=== PATIENT | male | born 1945 | race Caucasian/White ===

== ENCOUNTER 2016-12-23 15:00 | Inpatient (IN) | payer OTHER, MEDICARE ==
[2016-12-23 15:06] VITALS: BMI 24.4
--- NOTE | 2016-12-23 15:55 | PDOC ---
History of Present Illness - History of Present Illness Initial Comments: 12/23/16 16:08 Patient is a 71 year old male with significant medical hx of recent diagnosis with pancreatic CA (on chemotherapy) complicated by GI bleed, 2 week ICU stay complicated by C. diff, HLD, HTN, DM, and hypothyroidism s/p thyroid resection, who is presenting to the ED with infection to the right lower extremity for three weeks. Three weeks ago the patient was sitting too close to a space heater and sustained foote to his right leg. The patient notes that he didnt notice that his leg was burning due to his diabetic neuropathy. He reports blistering to the area, redness, and swelling. The patient reports he has had no difficulty walking. The patient denies chest pain, shortness of breath, headache and dizziness. Denies fever, chills, nausea, vomiting, diarrhea and constipation. Denies dysuria, frequency, urgency and hematuria. Medications: As listed Allergies: None Social history: , social alcohol, no smoking <Maribel Regalado - Last Filed: 12/23/16 16:08> - General History Source: Patient Exam Limitations: No Limitations <Jazlyn Man - Last Filed: 12/24/16 12:42> - General Chief Complaint: Pain, Acute Stated Complaint: RIGHT LEG PAIN Time Seen by Provider: 12/23/16 15:15 Past History <Maribel Regalado - Last Filed: 12/23/16 16:08> - Past Medical History Cancer: Yes (thyroid cancer) Cardiac Disorders: No CVA: No CHF: No Dementia: No Diabetes: Yes HTN: Yes Hypercholesterolemia: Yes Seizures: No Thyroid Disease: Yes (throid ca) Other medical history: CHEMO FOR PANCREATIC CA - Surgical History Abdominal Surgery: No Appendectomy: No Cardiac Surgery: No Cholecystectomy: No Lung Surgery: No Neurologic Surgery: No Orthopedic Surgery: No - Psycho/Social/Smoking Cessation Hx Anxiety: No Suicidal Ideation: No Smoking Status: No Smoking History: Never smoked Have you smoked in the past 12 months: No Number of Cigarettes Smoked Daily: 0 Hx Alcohol Use: No Drug/Substance Use Hx: No Substance Use Type: None Hx Substance Use Treatment: No <Jazlyn Mna - Last Filed: 12/24/16 12:42> - Past Medical History Allergies/Adverse Reactions: Allergies Allergy/AdvReac Type Severity Reaction Status Date / Time lisinopril Allergy Verified 12/23/16 15:02 Opioids - Morphine Analogues Allergy Verified 12/23/16 15:02 Home Medications: Ambulatory Orders Buspirone HCl [Buspar -] 5 mg PO ONCE 12/23/16 Canagliflozin [Invokana] 300 mg PO DAILY 12/23/16 Levothyroxine [Synthroid -] 175 mcg PO DAILY 12/23/16 Lisdexamfetamine Dimesylate [Vyvanse] 30 mg PO DAILY 12/23/16 Omeprazole Magnesium [Prilosec] 40 mg PO DAILY 12/23/16 Pioglitazone HCl [Actos] 30 mg PO DAILY 12/23/16 Ranitidine HCl [Zantac] 150 mg PO DAILY 12/23/16 Saccharomyces Boulardii [Florastor] 0 mg PO BID 12/23/16 Sitagliptin Phos/Metformin HCl [Janumet 50-1,000 mg Tablet] 1 each PO BID Review of Systems - Review of Systems Comments:: 12/23/16 16:08 GENERAL/CONSTITUTIONAL: No: fever, chills, weakness, loss of appetite. HEAD, EYES, EARS, NOSE AND THROAT: No: change in vision, ear pain, discharge, sore throat, throat swelling. CARDIOVASCULAR: No: chest pain, lightheadedness, palpitations, syncope RESPIRATORY: No: cough, shortness of breath, wheezing, hemoptysis, stridor. GASTROINTESTINAL: No: nausea, vomiting, abdominal cramping, diarrhea, rectal bleeding, constipation. GENITOURINARY: No: dysuria, hematuria, frequency, urgency, flank pain. MUSCULOSKELETAL: Yes: right lower extremity redness, swelling, pain, blistering. No: back pain, neck pain, joint pain SKIN AND BREASTS: No: lesions, pallor, rash or easy bruising. NEUROLOGIC: No: headache, vertigo, paresthesias, weakness ENDOCRINE: No: unexplained weight gain or loss HEMATOLOGIC/LYMPHATIC: No: anemia, easy bleeding, swelling nodes <FabricioMaribel - Last Filed: 12/23/16 16:08> *Physical Exam - Vital Signs Last Vital Signs Temp Pulse Resp BP Pulse Ox 97.6 F 93 H 18 121/74 100 12/23/16 15:01 12/23/16 15:01 12/23/16 15:01 12/23/16 15:01 12/23/16 15:01 - Physical Exam Comments: 12/23/16 16:09 GENERAL: The patient is in no acute distress. HEAD: Normal with no signs of trauma. EYES: PERRLA, EOMI, sclera anicteric, conjunctiva clear. ENT: Ears normal, nares patent, oropharynx clear without exudates. Moist mucous membranes. NECK: Normal range of motion, supple without lymphadenopathy, JVD, or masses. LUNGS: Breath sounds equal, clear to auscultation bilaterally. No wheezes, and no crackles. HEART:Regular rate and rhythm, normal S1 and S2 without murmur, rub or gallop. ABDOMEN: Soft, nontender, normoactive bowel sounds. No guarding, no rebound. EXTREMITIES: Right lower extremity swelling and erythema, no tenderness. Normal range of motion. No clubbing or cyanosis. NEUROLOGICAL: Cranial nerves II through XII grossly intact. Normal speech. No focal neurological deficits. MUSCULOSKELETAL: Back non-tender to palpation, no CVA tenderness SKIN: Warm, Dry, normal turgor, no rashes or lesions noted. <Maribel Regalado - Last Filed: 12/23/16 16:08> - Vital Signs Last Vital Signs Temp Pulse Resp BP Pulse Ox 97.6 F 93 H 18 121/74 100 12/23/16 15:01 12/23/16 15:01 12/23/16 15:01 12/23/16 15:01 12/23/16 15:01 <Jazlyn Man - Last Filed: 12/24/16 12:42> ED Treatment Course - LABORATORY CBC & Chemistry Diagram: 12/24/16 05:00 12/24/16 05:00 <Jazlyn Man - Last Filed: 12/24/16 12:42> Medical Decision Making - Medical Decision Making 12/23/16 15:55 A portion of this note was documented by scribe services under my direction. I have reviewed the details of the note, within reason, and agree with the documentation with the following case summary and management plan written by me. Nursing documentation reviewed and incorporated into medical decision making 12/23/16 18:19 This is a 71 yo M with a h/o DM Recent diagnosis of pancreatic cancer s/p post op complicated course Pt had an extensive GI bleed due to "vessel being cut" on Oct 02, ultimately requiring intubation and ICU stay, s/p endoscopy x 4?, s/p successful stapling S/p embolization as well Hospital course complicated by C diff Pt ultimately discharged to a long-term Pt finally returned home just before the beginning of the year While at home, he sustained a superficial burn to the right ankle/foot He and his have been applying local wound care Yesterday, he noted lower extremity swelling Today he noted lower extremity erythema No fevers or chills Erythema extends up the lower leg There are 2 lesions of the dorsum of the right foot Of note, pt is currently on chemotherapy, protocol 3 weeks on 1 week off. This is his week off. DD: Cellulitis, abscess, osteomyelitis DD: DVT, dependent edema 12/23/16 18:19 Laboratory Tests 12/23/16 12/23/16 16:19 16:19 WBC 1.2 L* D Hgb 11.1 L D Hct 34.5 L D Plt Count 266 D Neutrophils % 50.0 Lymphocytes % 35.0 D Sodium 133 L Potassium 4.9 Chloride 103 Carbon Dioxide 22 D BUN 24 H D Creatinine 1.2 D Random Glucose 234 H D Patient given vancomycin to treat cellulitis. Given patient's history of C. difficile will avoid Clindamycin Pt US (+) for DVT call placed to Dr. Swift Will admit to hospitalist service Will keep pt at [facility] as there are no rooms at [facility] Pt can be transported to [facility] for filter if appropriate Call placed to pt Oncologist Spoke with verification specialist physician, kelly endoscopy demonstrated dark blood, no active bleeding Call placed to Dr Mojica Would hold on anti coagulation for now 12/23/16 18:29 Called by Imaging fashion illustrator re: findings of extensive RLE DVT (common femoral through popliteal) Pt seen by ERIKA Ruvalcaba Pt will need to be placed on isolation given neutropenia Clinical Impression: extensive DVT, Cellulitis, neutropenia 12/23/16 18:45 <Jazlyn Man - Last Filed: 12/24/16 12:42> *DC/Admit/Observation/Transfer - Attestations Scribe Attestion: 12/23/16 16:10 Documentation prepared by Maribel Regalado, acting as certified court/medical interpreter for Jazlyn Man MD. <Maribel Regalado - Last Filed: 12/23/16 16:08> - Discharge Dispostion Admit: Yes <Jazlyn Man - Last Filed: 12/24/16 12:42> Diagnosis at time of Disposition: Cellulitis of leg, right DVT (deep venous thrombosis) Qualifiers: DVT location: lower extremity Affected thrombotic vein of extremity: unspecified lower extremity proximal vein Laterality: right Chronicity: acute Qualified Code(s): I82.4Y1 - Acute embolism and thrombosis of unspecified deep veins of right proximal lower extremity Neutropenia Qualifiers: Neutropenia type: secondary to cancer chemotherapy Qualified Code(s): D70.1 - Agranulocytosis secondary to cancer chemotherapy - Discharge Dispostion Condition at time of disposition: Guarded - Referrals
[2016-12-23 16:34] LABS: MCH 29.7 pg (25.7-33.7); MCHC 32.2 g/dl (32.0-35.9); MEAN CELL VOLUME 92.4 fl (80-96); MEAN PLT VOLUME 7.2 fl (7.5-11.1); PLATELET COUNT 266 K/MM3 (134-434); RDW 14.7 % (11.9-15.9)
[2016-12-23 16:40] LABS: WHITE BLOOD COUNT 1.2 K/mm3 (4.0-10.0)
[2016-12-23 16:41] LABS: ALBUMIN 3.1 g/dl (3.5-5.0); BILIRUBIN,TOTAL 0.8 mg/dl (0.2-1.0); CALCIUM 8.6 mg/dl (8.4-10.2); CREATININE 1.2 mg/dl (0.6-1.3)
[2016-12-23 17:11] LABS: ANISOCYTOSIS RARE; HYPOCHROMIA 1+; MICROCYTOSIS FEW
[2016-12-23] MEDS ORDERED: VANCOMYCIN 1,000 MG in DEXTROSE 5%-WATER - 250 ML IVPB ONE (17:21)
[2016-12-23] MEDS ORDERED: VANCOMYCIN 1,000 MG VIAL (RESTRICTED TO ID ONLY) ONE (17:30)
[2016-12-23 18:40] LABS: PH,URINE 5.5 (4.5-8); URINE APPEARANCE Clear; URINE BILIRUBIN Negative (NEGATIVE); URINE BLOOD Negative (NEGATIVE); URINE GLUCOSE (UA) 3+ (NEGATIVE); URINE KETONE 1+ (NEGATIVE); URINE LEUK ESTERASE Negative (NEGATIVE); URINE NITRITE Negative (NEGATIVE); URINE UROBILINOGEN 0.2 E.U/dl (0.2-1.0)
[2016-12-23 18:42] LABS: URINE COLOR YELLOW; URINE PROTEIN 1+ (NEGATIVE)
[2016-12-23 18:53] LABS: URINE BACTERIA NEGATIVE /hpf (NEGATIVE); URINE WBC 0-2 (3-5)
--- NOTE | 2016-12-23 18:58 | HP ---
CHIEF COMPLAINT: RLE swollen and red PCP: Dr. Luque [phone] (cell) Oncologist Vito HISTORY OF PRESENT ILLNESS: 71 year-old man with a PMH of HTN, HLD, NIDDM, hypothyroidism s/p thyroid resection, and pancreatic cancer which was diagnosed in September 2016. Underwent Whipple procedure (Vito Petersen) complicated by a GI bleed secondary to a severed vessel. Remained in ICU x 2 weeks. Last EGD was in early October 2016 which showed no active bleeding and Hgb has been stable since that time. Patient was discharged in late October with a diagnosis of c.diff. Went to [facility] in [facility] where he was treated for 6 weeks for c.diff, 4 weeks on metronidazole, 2 weeks on PO vanc. Returned home day before . Shortly after returning home, the patient suffered three small blistering- foote on the RLE from a space heater. Patient and VNS treated foote with topical antibiotic. In early December 2016 patient started chemotherapy and he has completed three rounds. On Saturday and of this past week he did not feel well and stayed in bed. On Saturday he noticed swelling in his RLE. The swelling gradually worsened, and today RLE became inflamed, very swollen, and painful and so he came to the ED. Social history: , social alcohol, no smoking ER course was notable for: (1) Afebrile, WBC 1.2, ANC 600 (2) US RLE: extensive DVT throughout RLE extending common femoral to posterior tibial vein, predominantly occlusive, some areas of minimal flow Recent Travel: no PAST MEDICAL HISTORY Hypertension Hyperlipidemia NIDDM Hypothyroidism Prostate cancer PAST SURGICAL HISTORY: Whipple procedure Thyroid resection Social History: Smoking: no Alcohol: social Drugs: no Family History: Allergies lisinopril Allergy (Verified 12/23/16 15:02) Opioids - Morphine Analogues Allergy (Verified 12/23/16 15:02) HOME MEDICATIONS: Medication Instructions Recorded Buspirone HCl [Buspar -] 5 mg PO ONCE 12/23/16 Canagliflozin [Invokana] 300 mg PO DAILY 12/23/16 Levothyroxine [Synthroid -] 175 mcg PO DAILY 12/23/16 Lisdexamfetamine Dimesylate 30 mg PO DAILY 12/23/16 [Vyvanse] Omeprazole Magnesium [Prilosec] 40 mg PO DAILY 12/23/16 Pioglitazone HCl [Actos] 30 mg PO DAILY 12/23/16 Ranitidine HCl [Zantac] 150 mg PO DAILY 12/23/16 Saccharomyces Boulardii [Florastor] 0 mg PO BID 12/23/16 Sitagliptin Phos/Metformin HCl 1 each PO BID 12/23/16 [Janumet 50-1,000 mg Tablet] REVIEW OF SYSTEMS CONSTITUTIONAL: Present: weakness, malaise this week following chemotherapy Absent: fever, chills, diaphoresis, generalized weakness, malaise, loss of appetite, weight change HEENT: Absent: rhinorrhea, nasal congestion, throat pain, throat swelling, difficulty swallowing, mouth swelling, ear pain, eye pain, visual changes CARDIOVASCULAR: Absent: chest pain, syncope, palpitations, irregular heart rate, lightheadedness , peripheral edema RESPIRATORY: Absent: cough, shortness of breath, dyspnea with exertion, orthopnea, wheezing, stridor, hemoptysis GASTROINTESTINAL: Absent: abdominal pain, abdominal distension, nausea, vomiting, diarrhea, constipation, melena, hematochezia GENITOURINARY: Absent: dysuria, frequency, urgency, hesitancy, hematuria, flank pain, genital pain MUSCULOSKELETAL: Absent: myalgia, arthralgia, joint swelling, back pain, neck pain SKIN: Present: three small foote to RLE in various stages of healing; erythema, swelling, and tenderness to RLE Absent: rash, itching, pallor HEMATOLOGIC/IMMUNOLOGIC: Absent: easy bleeding, easy bruising, lymphadenopathy, frequent infections ENDOCRINE: Present: 35 pound weight loss since September 2016 s/p pancreatic CA diagnosis Absent: unexplained weight gain, unexplained weight loss, heat intolerance, cold intolerance NEUROLOGIC: Present: bilateral lower extremity neuropathy secondary to diabetes Absent: headache, focal weakness or paresthesias, dizziness, unsteady gait, seizure, mental status changes, bladder or bowel incontinence PSYCHIATRIC: Absent: anxiety, depression, suicidal or homicidal ideation, hallucinations. PHYSICAL EXAMINATION Vital Signs - 24 hr 12/23/16 15:01 Temperature 97.6 F Pulse Rate 93 H Respiratory 18 Rate Blood Pressure 121/74 O2 Sat by Pulse 100 Oximetry (%) GENERAL: Awake, alert, and fully oriented, in no acute distress. HEAD: Normal with no signs of trauma. EYES: Pupils equal, round and reactive to light, extraocular movements intact, sclera anicteric, conjunctiva clear. No lid lag. EARS, NOSE, THROAT: Ears normal, nares patent, oropharynx clear without exudates. Moist mucous membranes. LUNGS: Breath sounds equal, clear to auscultation bilaterally. No wheezes, and no crackles. No accessory muscle use. HEART: Regular rate and rhythm, normal S1 and S2 without murmur, rub or gallop. Mediport upper right chest. ABDOMEN: Soft, nontender, not distended, normoactive bowel sounds, no guarding, no rebound, no masses. MUSCULOSKELETAL: Normal range of motion at all joints. No bony deformities or tenderness. No CVA tenderness. UPPER EXTREMITIES: 2+ pulses, warm, well-perfused. No cyanosis. No clubbing. Cap refill <2 seconds. No peripheral edema. LOWER EXTREMITIES: extensive varicosities bilaterally; toes on left foot dusky appearance, 2+ pulses, warm, well-perfused. No calf tenderness. RLE: erythema and swelling of right foot with dusky, purplish toes; erythema extends up to knee; warm to touch NEUROLOGICAL: Cranial nerves II-XII intact. Normal speech. Normal gait. PSYCHIATRIC: Cooperative. Good eye contact. Appropriate mood and affect. SKIN: Ewa described leaving [facility] in October 2016 with sacral pressure ulcers. Examined area. Skin is healed. There is a 0.5cmL x 0.5cmW x surface scab on the right upper buttock just lateral to the intergluteal fold. Laboratory Results - last 24 hr 12/23/16 12/23/16 12/23/16 16:19 16:19 18:08 WBC 1.2 L* D RBC 3.74 L D Hgb 11.1 L D Hct 34.5 L D MCV 92.4 MCHC 32.2 RDW 14.7 D Plt Count 266 D MPV 7.2 L Neutrophils % 50.0 Lymphocytes % 35.0 D Monocytes % 8.0 Eosinophils % 1.0 Basophils % 1.0 Band Neutrophils 3.0 Reactive Lymphocytes 1 Hypochromic-Microcytic 1+ Anisocytosis Rare Microcytosis Few Sodium 133 L Potassium 4.9 Chloride 103 Carbon Dioxide 22 D Anion Gap 8 BUN 24 H D Creatinine 1.2 D Creat Clearance w eGFR 59.35 Random Glucose 234 H D Calcium 8.6 Total Bilirubin 0.8 D AST 23 ALT 12 D Alkaline Phosphatase 102 H Total Protein 7.0 Albumin 3.1 L D Urine Color Yellow Urine Appearance Clear Urine pH 5.5 Ur Specific [place] 1.010 Urine Protein 1+ H Urine Glucose (UA) 3+ H Urine Ketones 1+ H Urine Blood Negative Urine Nitrite Negative Urine Bilirubin Negative Urine Urobilinogen 0.2 e.u/dl Ur Leukocyte Esterase Negative Urine RBC 2-4 Urine WBC 0-2 Ur Epithelial Cells Rare Amorphous Urates Few Urine Bacteria Negative Current Medications Generic Name Dose Route Start Last Admin Trade Name Howie PRN Reason Stop Dose Admin Sodium Chloride 1,000 mls @ 150 mls/hr 12/23/16 19:30 Normal Saline - IV ASDIR [facility] Insulin Aspart 1 vial 12/23/16 22:00 Novolog Vial Sliding Scale - SQ ACHS [facility] Protocol Levothyroxine Sodium 175 mcg 12/24/16 07:00 Synthroid - PO DAILY@0700 JOE Piperacillin Sod/Tazobactam Sod 4.5 gm 12/23/16 19:30 Zosyn 4.5gm Ivpb (Pre-Docked) IVPB Q8H-IV JOE Piperacillin Sod/Tazobactam Sod 4.5 gm 12/23/16 19:30 Zosyn 4.5gm Ivpb (Pre-Docked) IVPB 12/24/16 03:31 Q8H JOE Ranitidine HCl 150 mg 12/24/16 10:00 Zantac - PO DAILY [facility] ASSESSMENT/PLAN: 71 year-old man with a PMH of HTN, HLD, NIDDM, hypothyroidism s/p thyroid resection, c.diff, and pancreatic cancer s/p Whipple procedure complicated by a surgical GI bleed. Admitted for RLE cellulitis and extensive DVT. RLE cellulitis --suffered foote to RLE about 3 weeks ago from a space heater, treated with topical antibiotic; then was bedridden for 2 days earlier this week following third round of chemo; RLE began to swell 48 hours ago and became hot and red about 24 hours ago with lymphangitis extending up to knee --start Zosyn 4.5g q8h --keep well-hydrated with IV fluids --ID following RLE DVT --discussed issue of anticoagulation with Dr. Luque, patient's oncologist ; patient has not had bleeding issues since his Whipple procedure, his last EGD in October showed no active bleeding, and Hgb has been stable --will guaic patient; if negative, start heparin drip with PTT goal at low end --check cbc q12h Pancreatic cancer Neutropenia Hypertension Hyperlipidemia NIDDM --Novolog sliding scale Hypothyroidism s/p thyroid resection h/o c.diff --no diarrhea at present --if stools should become loose, send off stool studies F/E/N Fluids: NS @ 150mL/hr Electrolytes: replete as indicated Nutrition: neutropenic, diabetic, low sodium DVT prophylaxis: start heparin drip once guiac negative confirmed Dispo: requires ICU care. Full code. Visit type - Emergency Visit Emergency Visit: Yes ED Registration Date: 12/23/16 Care time: The patient presented to the Emergency Department on the above date and was hospitalized for further evaluation of their emergent condition. - New Patient This patient is new to me today: Yes Date on this admission: 12/28/16 - Critical Care Critical Care patient: No
[2016-12-23 19:20] LABS: ACTIVATED PTT 25.3 SECONDS (24.0-38.9)
[2016-12-23 19:25] LABS: INR 1.03 (0.82-1.09); PROTHROMBIN TIME (PATIENT) 11.2 SEC (10.2-13.0)
[2016-12-23] MEDS ORDERED: SODIUM CHLORIDE 1,000 ML IV STA (19:29)
[2016-12-23] MEDS ORDERED: SODIUM CHLORIDE 1,000 ML IV SCH (19:30)
[2016-12-23] MEDS ORDERED: PIPERACILLIN/TAZOB 4.5 GM/100 ML PRE-DOCKED IVPB SCH (19:30)
--- NOTE | 2016-12-23 22:02 | CONSULT ---
Consult Consult Specialty:: Pulm/CC - History of Present Illness History of Present Illness: Pt is a 71yr old man with PMHx of pancreatic cancer (diagnosed 09/16) now s/p whipple procedure, HTN, HLD, DM, hypothyroidism in setting of thyroid resection. Of note pt whipple procedure complicated by GIB requiring extended hospital stay with intubation, discharged to rehab center for management of c diff. Pt now denies diarrhea. Pt started on chemotherapy the first week of December, last treatment 12/19. The week of 12/23 is his week off. Pt now presents to the ER at [facility] with CC of dyspnea with standing/exertion x4 days and RLE redness/swelling x2days. Per report, prelim doppler shows extensive DVT of RLE(final read pending). Pt transferred to [facility] ICU for further management. Upon assessment pt denies chest pain/sob at rest/headache/n/v. - History Source History Provided By: Patient, Family Member, Transfer Record Limitations to Obtaining History: No Limitations - Alcohol/Substance Use Hx Alcohol Use: No - Smoking History Smoking history: Never smoked Have you smoked in the past 12 months: No Aproximately how many cigarettes per day: 0 Home Medications - Allergies Allergies/Adverse Reactions: Allergies Allergy/AdvReac Type Severity Reaction Status Date / Time lisinopril Allergy Verified 12/23/16 15:02 Opioids - Morphine Analogues Allergy Verified 12/23/16 15:02 - Home Medications Home Medications: Ambulatory Orders Buspirone HCl [Buspar -] 5 mg PO ONCE 12/23/16 Canagliflozin [Invokana] 300 mg PO DAILY 12/23/16 Levothyroxine [Synthroid -] 175 mcg PO DAILY 12/23/16 Lisdexamfetamine Dimesylate [Vyvanse] 30 mg PO DAILY 12/23/16 Omeprazole Magnesium [Prilosec] 40 mg PO DAILY 12/23/16 Pioglitazone HCl [Actos] 30 mg PO DAILY 12/23/16 Ranitidine HCl [Zantac] 150 mg PO DAILY 12/23/16 Saccharomyces Boulardii [Florastor] 0 mg PO BID 12/23/16 Sitagliptin Phos/Metformin HCl [Janumet 50-1,000 mg Tablet] 1 each PO BID Review of Systems - Review of Systems Eyes: reports: No Symptoms Cardiovascular: reports: Shortness of Breath. denies: Chest Pain Respiratory: reports: SOB (laureano and standing) Gastrointestinal: reports: Constipation (intermittently). denies: Abdominal Pain, Diarrhea, Nausea, Vomiting Genitourinary: reports: Urgency. denies: Dysuria Physical Exam Vital Signs: Vital Signs Period Temp Pulse Resp BP Sys/Pate Pulse Ox Last 24 Hr 97.6 F 80-93 16-18 104-121/70-74 100-100 Intake & Output 12/20/16 12/21/16 12/22/16 12/23/16 23:59 23:59 23:59 23:59 Weight 180 lb Constitutional: Yes: No Distress, Calm, Thin Eyes: Yes: WNL, PERRL HENT: Yes: WNL Neck: Yes: WNL Cardiovascular: Yes: S1, S2 Respiratory: Yes: Diminished (slight on left side base), SOB on Exertion. No: Rhonchi, SOB, Wheezes Gastrointestinal: Yes: Normal Bowel Sounds. No: Distention, Melena, Palpable Mass, Tenderness, Rebound, Vomiting ...Rectal Exam: No: Deferred Renal/: No: CVA Tenderness - Left, CVA Tenderness - Right Musculoskeletal: Yes: Other (RLE pain) Extremities: Yes: Erythema (RLE) Edema: Yes Edema: RLE: 2+ Peripheral Pulses WNL: (+1 rt pedal, +2 left pedal ) Integumentary: Yes: Other (pressure ulcer scars on sacral region) Neurological: Yes: WNL Psychiatric: Yes: WNL Labs: Abnormal Lab Results 12/23/16 12/23/16 12/23/16 16:19 16:19 18:08 WBC 1.2 L* D RBC 3.74 L D Hgb 11.1 L D Hct 34.5 L D MPV 7.2 L PTT (Actin FS) Sodium 133 L BUN 24 H D Random Glucose 234 H D Alkaline Phosphatase 102 H Albumin 3.1 L D Urine Protein 1+ H Urine Glucose (UA) 3+ H Urine Ketones 1+ H 12/23/16 18:17 WBC RBC Hgb Hct MPV PTT (Actin FS) 25.3 L Sodium BUN Random Glucose Alkaline Phosphatase Albumin Urine Protein Urine Glucose (UA) Urine Ketones Assessment/Plan Pt is a 71yr old man with PMHx of pancreatic cancer (diagnosed 09/16) now s/p whipple procedure, HTN, HLD, DM, hypothyroidism in setting of thyroid resection. Pt now in the ICU for management of DVT with leukopenia in the setting of chemotherapy. Pulm: No active issues -O2 support prn for sat >94% -Incentive spirometer ID: Leukopenia, resolved c. diff. Concern for cellulitis. -F/U cultures -Antibiotics per ID -Reverse isolation for leukopenia -f/u lactic acid Cardiovascular: -Heparin drip -Monitor PTT -Consider filter? -f/u cardiac enzymes Renal: -Replete electrolytes prn Endo: -Continue home synthroid -BGM -Glycemic control GI: -Continue home ZenPep Neuro: -Pain management, will continue Fentanyl patch (pt received with it) Prophylactic -PT consult -Continue home PPI -Zofran prn
--- NOTE | 2016-12-23 22:03 | HOSP ---
Subjective - Review of Symptoms Events since last encounter: Hospitalist Encounter Patient received at bedside in ICU bed #4, alert and oriented. Patient reports pain, swelling, redness to right lower extremity Obtained stool occult and sent to lab Will start Heparin Drip, without bolus for DVT of lower extremity, when stool occult result is available. 00:53 stool occult- negative, Heparin Drip Protocol ordered without bolus, RN aware. Mg 1.4 was repleted, will continue to monitor Physical Examination Vital Signs: Vital Signs Temperature 97.6 F 12/23/16 15:01 Pulse Rate 80 12/23/16 19:04 Respiratory Rate 16 12/23/16 19:04 Blood Pressure 104/70 12/23/16 19:04 O2 Sat by Pulse Oximetry (%) 100 12/23/16 19:04 Labs: CBC, BMP 12/23/16 16:19 12/23/16 16:19
[2016-12-23] MEDS ORDERED: FENTANYL PATCH WASTE MC PRN (22:20)
[2016-12-23] MEDS ORDERED: fentaNYL 25mcg/hr PATCH.TD72 TD SCH (22:30)
[2016-12-23] MEDS ORDERED: ONDANSETRON 4 MG/2 ML VIAL IVPUSH PRN (22:39)
[2016-12-23] MEDS: PIPERACILLIN/TAZOB 4.5 GM/100 ML PRE-DOCKED IVPB SCH (23:43)
[2016-12-23] MEDS: INSULIN SLIDING SCALE (NOVOLOG) 1 VIAL SQ SCH (23:43)
[2016-12-23] MEDS: ZENPEP 40000 UNIT PO SCH (23:54)
[2016-12-24 00:21] LABS: TROPONIN I < 0.02 ng/ml (0.00-0.05)
[2016-12-24 00:35] LABS: URINE APPEARANCE CLEAR; URINE BILIRUBIN NEGATIVE (NEGATIVE); URINE BLOOD NEGATIVE (NEGATIVE); URINE COLOR LTYELLOW; URINE GLUCOSE (UA) 3+ (NEGATIVE); URINE KETONE TRACE (NEGATIVE); URINE LEUK ESTERASE NEGATIVE (NEGATIVE); URINE NITRITE NEGATIVE (NEGATIVE); URINE PROTEIN NEGATIVE (NEGATIVE); URINE UROBILINOGEN NEGATIVE E.U./dl (0.2-1.0)
[2016-12-24 00:48] LABS: ALBUMIN 2.7 g/dl (3.4-5.0); BILIRUBIN,DIRECT 0.3 mg/dL (0.0-0.2); BILIRUBIN,TOTAL 0.5 mg/dL (0.2-1.0); TOT PROT 6.4 g/dl (6.4-8.2)
[2016-12-24] MEDS ORDERED: HEPARIN - 25,000 UNIT in SODIUM CHLORIDE 495 ML IV SCH ×2 (01:00→19:05)
[2016-12-24] MEDS ORDERED: HEPARIN INFUSION - 500 ML IVPB ONE (01:08)
[2016-12-24 01:34] LABS: MAGNESIUM 1.4 mg/dL (1.8-2.4); PHOSPHOROUS 2.6 mg/dL (2.5-4.9)
[2016-12-24] MEDS ORDERED: MAGNESIUM SULF 50% (8.12 MEQ/2 ML-1 GM VIAL) IVPB ONE ×2 (01:51→07:31)
[2016-12-24] MEDS ORDERED: HEPARIN NA (PORCINE) 5,000 UNITS/ML 1ML VIAL IVPUSH PRN ×6 (02:13→19:05)
[2016-12-24] MEDS: PIPERACILLIN/TAZOB 4.5 GM/100 ML PRE-DOCKED IVPB SCH (05:00)
[2016-12-24 06:51] LABS: MCH 30.8 pg (25.7-33.7); MCHC 33.4 g/dl (32.0-35.9); MEAN CELL VOLUME 92.4 fl (80-96); MEAN PLT VOLUME 7.3 fl (7.5-11.1); PLATELET COUNT 256 K/MM3 (134-434)
[2016-12-24 06:56] LABS: ACTIVATED PTT 42.7 SECONDS (26.9-34.4); INR 1.03 (0.82-1.09); PROTHROMBIN TIME (PATIENT) 11.3 SEC (9.98-11.88)
[2016-12-24 07:00] LABS: MAGNESIUM 1.4 mg/dL (1.8-2.4); PHOSPHOROUS 2.4 mg/dL (2.5-4.9)
[2016-12-24] MEDS ORDERED: LEVOTHYROXINE NA 175 MCG TABLET PO SCH (07:00)
[2016-12-24] MEDS ORDERED: ZENPEP 40000 UNIT PO SCH (07:00)
[2016-12-24 07:09] LABS: WHITE BLOOD COUNT 0.7 K/mm3 (4.0-10.0)
[2016-12-24] MEDS: INSULIN SLIDING SCALE (NOVOLOG) 1 VIAL SQ SCH ×4 (07:09→22:28)
[2016-12-24] MEDS: ZENPEP 40000 UNIT PO SCH ×3 (08:06→17:43)
[2016-12-24 08:52] LABS: METAMYELOCYTE 2 % (0-2)
[2016-12-24] MEDS ORDERED: LACTOBACILLUS ACIDOPHILUS 1 EACH TAB (FP) PO SCH (10:00)
[2016-12-24] MEDS ORDERED: DOCUSATE SODIUM 100 MG CAPSULE (FP) PO SCH (10:00)
[2016-12-24] MEDS ORDERED: RANITIDINE HCL 150 MG TABLET (FP) PO SCH (10:00)
[2016-12-24] MEDS ORDERED: MULTIVITAMINS THER W-MINERALS COMBO TABLET (FP) PO SCH (10:00)
[2016-12-24] MEDS ORDERED: PANTOPRAZOLE 40 MG TABLET (FP) PO SCH (10:00)
--- NOTE | 2016-12-24 11:06 | EKG ---
Test Reason : Blood Pressure : / mmHG Vent. Rate : 086 BPM Atrial Rate : 086 BPM P-R Int : 156 ms QRS Dur : 116 ms QT Int : 384 ms P-R-T Axes : 030 -28 023 degrees QTc Int : 459 ms NORMAL SINUS RHYTHM RIGHT BUNDLE BRANCH BLOCK ABNORMAL ECG NO PREVIOUS ECGS AVAILABLE Confirmed by BEN FITZGERALD MD ([id number]) on 12/24/2016 11:06:02 AM Referred By: EZ IVERSON Confirmed By:BEN FITZGERALD MD
--- NOTE | 2016-12-24 12:37 | CONSULT ---
Addendum entered and electronically signed by Baljit Delarosa PA 12/25/16 09:28: After case discussed with Dr. Berger, he came to see the patient at approximately 15:15 and the patient hhad been transferred to IR for IVC filter and attempted thrombectomy. As the patient was treated by another physician for the same issue, vascular surgery will not comment on care that has been rendered. Addendum entered and electronically signed by Baljit Delarosa PA 12/25/16 09:12: Dr. Marrero came to see patient last night but patient was in IR getting a thrombectomy with IVC filter placement. If patient was referred to Dr. Mcnair, why was Dr. Berger consulted? Because another physician has rendered care, Dr. Berger will not be seeing/following this patient. Vascular surgery is off the case. Above discussed with Dr. Berger and agrees. Original Note: Consultation: REQUESTING PROVIDER: Lisandro Berger MD (Vascular Surgery) CONSULT REQUEST: We have been asked to surgically evaluate this patient for RLE DVT. PCP: Dr. Luque [phone] (cell) Oncologist [place] HPI: Called to eval 71 yo male w/ PMHx noted below. Comes to [facility] ED w/ c/o RLE swelling and pain. States pain began gradually as well as circumfrential swelling. Came in to get it evaluated. A RLE duplex ordered and confirms presence of DVT. Pt was diagnosed with Pancreatic CA September 2016. People are documenting he had a WHIPPLE PROCEDURE but he NEVER had the procedure!. He had an EGD with billiary duct stent placement (at hospital in [facility]). Which resulted in him suffering a GI bleed. He spent 2 weeks in the ICU. His last EGD was 2015 which showed no active bleeding. Pt informs me that he inconjunction w/ his oncologist are doing chemo before they attempt chemo. Pt now in the ICU for management of DVT with leukopenia in the setting of chemotherapy. Currently, patient on a heparin drip for his dvt. No signs of bleeding. Guiaic negative. Denies n/v/f/c, CP, SOB, MEJIA, palpitations, hematuria, melena or hematochazia. PMHx: HTN, Hyperlipidemia, NIDDM, Hypothyroidism, Prostate CA, Pancreatic CA () PSHx: Thyroid resection Allergies: Lisinopril, Opioids - Morphine Analogues HOME MEDS: 3 Buspirone HCl [Buspar -] 5 mg PO ONCE 12/23/16 Canagliflozin [Invokana] 300 mg PO DAILY 12/23/16 Levothyroxine [Synthroid -] 175 mcg PO DAILY 12/23/16 Lisdexamfetamine Dimesylate 30 mg PO DAILY 12/23/16 Omeprazole Magnesium [Prilosec] 40 mg PO DAILY 12/23/16 Pioglitazone HCl [Actos] 30 mg PO DAILY 12/23/16 Ranitidine HCl [Zantac] 150 mg PO DAILY 12/23/16 Saccharomyces Boulardii [Florastor] 0 mg PO BID 12/23/16 Sitagliptin Phos/Metformin HCl 1 each PO BID 12/23/16 ROS: CONSTITUTIONAL: See above. Absent: diaphoresis, generalized weakness, malaise, loss of appetite, weight change CARDIOVASCULAR: See above. Absent: irregular heart rate, lightheadedness, peripheral edema RESPIRATORY: See above. Absent: cough, orthopnea, wheezing, stridor, hemoptysis GASTROINTESTINAL:See above. GENITOURINARY: See above. Absent: dysuria, frequency, urgency, hesitancy, flank pain, genital pain MUSCULOSKELETAL: RLE swelling. Pain upon palpation of calf SKIN: Absent: rash, itching, pallor HEMATOLOGIC/IMMUNOLOGIC: Absent: easy bleeding, easy bruising, lymphadenopathy, frequent infections NEUROLOGIC: Absent: headache, focal weakness or paresthesias, dizziness, seizure , mental status changes, bladder or bowel incontinence PSYCHIATRIC: Absent: anxiety, depression, suicidal or homicidal ideation, hallucinations. Last Vital Signs Temp Pulse Resp BP Pulse Ox 98.9 F 86 15 100/59 95 12/24/16 10:00 12/24/16 12:00 12/24/16 12:00 12/24/16 12:12/24/16 09:00 PE GENERAL: Awake, alert, oriented, in nad NECK: supple without lymphadenopathy, JVD, or masses. LUNGS: cta b/l anteriorly HEART: rrr ABDOMEN: Soft, nt, nd, normoactive bowel sounds UE: 2+ pulses, warm, well-perfused. No cyanosis. Cap refill <2 seconds. No peripheral edema. LE: LL: unremarkable. Varisose veins b/l. +2 DP RL: +1 DP/PT, swelling of rt foot & erythema extends up to knee; warm to touch PSYCH: Cooperative. Good eye contact. Appropriate mood and affect. LABS: CBC, BMP 12/24/16 05:00 12/24/16 05:00 INR, PTT INR 1.03 (0.82-1.09) 12/24/16 05:00 Blood Type Blood Type B POSITIVE 12/23/16 23:30 Microbiology 12/23/16 21:40 Influenza Types A,B Antigen (ABEBE) - Final Nasopharyngeal Swab - Final Problem List - Problems (1) DVT (deep venous thrombosis) Assessment/Plan: Confirmed RLE DVT. No contraindications for AC. Cont heparin drip bridge to oral AC when ready for discharge for 6 months Downgrade to floor at ICU discretion. Cont care per primary medical team Above plan discussed with Dr. Berger and agrees. Code(s): I82.409 - ACUTE EMBOLISM AND THOMBOS UNSP DEEP VN UNSP LOWER EXTREMITY Qualifiers: DVT location: lower extremity Affected thrombotic vein of extremity: unspecified lower extremity proximal vein Laterality: right Chronicity: acute Qualified Code(s): I82.4Y1 - Acute embolism and thrombosis of unspecified deep veins of right proximal lower extremity (2) Neutropenia Code(s): D70.9 - NEUTROPENIA, UNSPECIFIED Qualifiers: Neutropenia type: secondary to cancer chemotherapy Qualified Code(s): D70.1 - Agranulocytosis secondary to cancer chemotherapy Visit type - Case Type Case Type: ED Admission - Emergency Emergency Visit: Yes ED Registration Date: 12/23/16 Care time: The patient presented to the Emergency Department on the above date and was hospitalized for further evaluation of their emergent condition. - New patient This patient is new to me today: Yes Date on this admission: 12/24/16
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
--- NOTE | 2016-12-24 14:20 | PN ---
Progress Note, Physician History of Present Illness: Patient seen and examined in ICU, was transferred to ICU for DVT/Cellulitis of the RLE Patient was lying comfortably in bed, denies any overnight changes. States he still has swelling and slight tenderness in his right lower extremity. Denies fever/chills, shortness of breath or any chest pain. - Current Medication List Current Medications: Active Medications Docusate Sodium (Colace -) 100 mg PO DAILY [facility] Last Admin: 12/24/16 09:55 Dose: 100 mg Fentanyl (Duragesic 25mcg Patch -) 1 patch TD Q72H [facility] Stop: 12/30/16 22:21 Last Admin: 12/23/16 23:40 Dose: 1 patch Heparin Sodium (Porcine) (Heparin -) 5,000 unit IVPUSH PRN PRN Heparin Sodium (Porcine) (Heparin -) 1,000 unit IVPUSH PRN PRN Heparin Sodium (Porcine) 25, (000 unit/ Sodium Chloride) 500 mls @ 20 mls/hr IV TITR JOE; 1,000 UNIT/HR PRN Reason: Protocol Last Titration: 12/24/16 07:39 Dose: 1,100 unit/hr Insulin Aspart (Novolog Vial Sliding Scale -) 1 vial SQ ACHS [facility] PRN Reason: Protocol Last Admin: 12/24/16 11:37 Dose: 6 units Lactobacillus Acidophilus (Bacid -) 1 tab PO DAILY [facility] Last Admin: 12/24/16 09:57 Dose: 1 tab Levothyroxine Sodium (Synthroid -) 175 mcg PO DAILY@0700 [facility] Last Admin: 12/24/16 06:53 Dose: 175 mcg Miscellaneous (Duragesic Patch Waste) 1 each MC PRN PRN PRN Reason: PAIN Multivitamins/Minerals (Theragran-M) 1 each PO DAILY [facility] Last Admin: 12/24/16 09:55 Dose: 1 each Zenpep 40,000 Units Capsules Patient's Own Medication (Non- Formulary) 3 each PO ACHS [facility] Last Admin: 12/24/16 11:37 Dose: 3 each Ondansetron HCl (Zofran Injection) 4 mg IVPUSH Q6H PRN PRN Reason: NAUSEA AND/OR VOMITING Pantoprazole Sodium (Protonix -) 40 mg PO DAILY [facility] Last Admin: 12/24/16 09:55 Dose: 40 mg Ranitidine HCl (Zantac -) 150 mg PO DAILY [facility] Last Admin: 12/24/16 09:55 Dose: 150 mg - Objective Vital Signs: Vital Signs Temperature 98.9 F 12/24/16 10:00 Pulse Rate 86 12/24/16 14:00 Respiratory Rate 15 12/24/16 14:00 Blood Pressure 104/66 12/24/16 14:00 O2 Sat by Pulse Oximetry (%) 95 12/24/16 09:00 Constitutional: Yes: Well Nourished, No Distress Eyes: Yes: EOM Intact HENT: Yes: Atraumatic Neck: Yes: Supple Cardiovascular: Yes: Regular Rate and Rhythm Respiratory: Yes: CTA Bilaterally Gastrointestinal: Yes: Soft Extremities: Yes: Other (warm slightly) Edema: Yes Edema: RLE: Trace (much improved ) Integumentary: Yes: Other (RLE minimal redness) Neurological: Yes: Alert, Oriented Labs: CBC, BMP 12/24/16 05:00 12/24/16 05:00 INR, PTT INR 1.03 (0.82-1.09) 12/24/16 05:00 - ....Imaging Ultrasound: Report Reviewed Assessment/Plan 71M with pancreatic cancer currently undergoing chemotherapy at [facility] presents to the ED with SOB and RLE swelling for 4 days found to have a DVT DVT-provoked by cancer and decreased movement hep gtt PTT per protocol will need transition to oral agent monitor for worsening thrombocytopenia Pancreatic CA Error in the chart, Pt. did not have whipple procedure, currently going under chemotherapy to shrink tumor burden and possibly be a candidate for whipple procedure Chemotherapy as per Dr. Luque at [facility] HTN Stable for now DM continue Insulin Sliding scale HLD no issues Hypothyroidism continue Levothyroxine 175mcg Cellulitis: does not clinically have a cellulitis redness likely secondary to DVT stop Abx FEN: no IVF replete magnesium and phosphate on diet PPx: Hep gtt protonix PT consult transfer to floor
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
[2016-12-24] MEDS ORDERED: ONDANSETRON 4 MG/2 ML VIAL IVPUSH PRN (19:05)
[2016-12-24] MEDS ORDERED: FENTANYL PATCH WASTE MC PRN ×2 (19:05)
[2016-12-24] MEDS: CEFTRIAXONE 50 ML IVPB SCH (19:10)
--- NOTE | 2016-12-24 19:14 | PN ---
Physical Exam: SUBJECTIVE: Patient seen and examined at bedside s/p IR procedure. OBJECTIVE: Vital Signs Period Temp Pulse Resp BP Sys/Pate Pulse Ox Last 24 Hr 98.2 F-99.1 F 73-128 15-27 100-152/54-112 95-100 GENERAL: The patient is awake, alert, and fully oriented, in no acute distress. HEAD: Normal with no signs of trauma. NECK: Trachea midline, full range of motion, supple. LUNGS: Breath sounds equal, clear to auscultation bilaterally, no wheezes, no crackles, no accessory muscle use. HEART: Regular rate and rhythm, S1, S2 without murmur, rub or gallop. ABDOMEN: Soft, nontender, nondistended, normoactive bowel sounds, no guarding, no rebound UPPER EXTREMITIES: 2+ pulses, warm, well-perfused, no edema LOWER EXTREMITIES: extensive varicosities bilaterally; toes on left foot dusky appearance, 2+ pulses, warm, well-perfused. No calf tenderness. RLE: erythema and swelling of right foot improved, leg is warm to touch NEUROLOGICAL: Cranial nerves II-XII intact. Normal speech. Normal gait. PSYCHIATRIC: Cooperative. Good eye contact. Appropriate mood and affect. NEUROLOGICAL: Cranial nerves II through XII grossly intact. Normal speech Laboratory Results - last 24 hr 12/23/16 12/23/16 12/23/16 23:30 23:30 23:30 WBC RBC Hgb Hct MCV MCHC RDW Plt Count MPV Neutrophils % Lymphocytes % Monocytes % Eosinophils % Metamyelocytes Differential Comment INR PTT (Actin FS) Sodium Potassium Chloride Carbon Dioxide Anion Gap BUN Creatinine POC Glucometer Random Glucose Lactic Acid Calcium Phosphorus Magnesium Total Bilirubin 0.5 Direct Bilirubin 0.3 H AST 17 ALT 11 L Alkaline Phosphatase 108 Creatine Kinase Troponin I B-Natriuretic Peptide Total Protein 6.4 Albumin 2.7 L TSH Free T4 Urine Color Urine Appearance Urine pH Ur Specific Ponce Urine Protein Urine Glucose (UA) Urine Ketones Urine Blood Urine Nitrite Urine Bilirubin Urine Urobilinogen Ur Leukocyte Esterase Stool Occult Blood Negative Blood Type B POSITIVE Antibody Screen Negative 12/23/16 12/23/16 12/23/16 23:30 23:30 23:34 WBC RBC Hgb Hct MCV MCHC RDW Plt Count MPV Neutrophils % Lymphocytes % Monocytes % Eosinophils % Metamyelocytes Differential Comment INR PTT (Actin FS) Sodium Potassium Chloride Carbon Dioxide Anion Gap BUN Creatinine POC Glucometer Random Glucose Lactic Acid Calcium Phosphorus Magnesium Total Bilirubin Direct Bilirubin AST ALT Alkaline Phosphatase Creatine Kinase 37 L Troponin I < 0.02 B-Natriuretic Peptide 520.42 H Total Protein Albumin TSH 3.41 Free T4 Urine Color Ltyellow Urine Appearance Clear Urine pH 5.0 Ur Specific Ponce 1.023 Urine Protein Negative Urine Glucose (UA) 3+ H Urine Ketones Trace H Urine Blood Negative Urine Nitrite Negative Urine Bilirubin Negative Urine Urobilinogen Negative Ur Leukocyte Esterase Negative Stool Occult Blood Blood Type Antibody Screen 12/23/16 12/24/16 12/24/16 23:40 00:39 05:00 WBC 0.7 L D RBC 3.33 L Hgb 10.3 L D Hct 30.8 L D MCV 92.4 MCHC 33.4 RDW 15.0 D Plt Count 256 D MPV 7.3 L Neutrophils % 56.0 Lymphocytes % 26.0 D Monocytes % 10.0 Eosinophils % 6.0 H D Metamyelocytes 2 Differential Comment Manual diff done INR PTT (Actin FS) Sodium Potassium Chloride Carbon Dioxide Anion Gap BUN Creatinine POC Glucometer [phone] Random Glucose Lactic Acid Calcium Phosphorus 2.6 Magnesium 1.4 L Total Bilirubin Direct Bilirubin AST ALT Alkaline Phosphatase Creatine Kinase Troponin I B-Natriuretic Peptide Total Protein Albumin TSH Free T4 Urine Color Urine Appearance Urine pH Ur Specific Ponce Urine Protein Urine Glucose (UA) Urine Ketones Urine Blood Urine Nitrite Urine Bilirubin Urine Urobilinogen Ur Leukocyte Esterase Stool Occult Blood Blood Type Antibody Screen 12/24/16 12/24/16 12/24/16 05:00 05:00 05:00 WBC RBC Hgb Hct MCV MCHC RDW Plt Count MPV Neutrophils % Lymphocytes % Monocytes % Eosinophils % Metamyelocytes Differential Comment INR 1.03 PTT (Actin FS) 42.7 H Sodium 138 Potassium 4.2 Chloride 105 Carbon Dioxide 22 Anion Gap 11 BUN 19 H D Creatinine 1.0 D POC Glucometer Random Glucose 185 H D Lactic Acid Calcium 8.0 L Phosphorus 2.4 L Magnesium 1.4 L Total Bilirubin Direct Bilirubin AST ALT Alkaline Phosphatase Creatine Kinase Troponin I B-Natriuretic Peptide Total Protein Albumin TSH Free T4 0.84 Urine Color Urine Appearance Urine pH Ur Specific Ponce Urine Protein Urine Glucose (UA) Urine Ketones Urine Blood Urine Nitrite Urine Bilirubin Urine Urobilinogen Ur Leukocyte Esterase Stool Occult Blood Blood Type Antibody Screen 12/24/16 12/24/16 12/24/16 05:55 11:35 13:42 WBC RBC Hgb Hct MCV MCHC RDW Plt Count MPV Neutrophils % Lymphocytes % Monocytes % Eosinophils % Metamyelocytes Differential Comment INR PTT (Actin FS) 61.5 H D Sodium Potassium Chloride Carbon Dioxide Anion Gap BUN Creatinine POC Glucometer [phone] Random Glucose Lactic Acid 0.952 Calcium Phosphorus Magnesium Total Bilirubin Direct Bilirubin AST ALT Alkaline Phosphatase Creatine Kinase Troponin I B-Natriuretic Peptide Total Protein Albumin TSH Free T4 Urine Color Urine Appearance Urine pH Ur Specific Ponce Urine Protein Urine Glucose (UA) Urine Ketones Urine Blood Urine Nitrite Urine Bilirubin Urine Urobilinogen Ur Leukocyte Esterase Stool Occult Blood Blood Type Antibody Screen Current Medications Generic Name Dose Route Start Last Admin Trade Name Freq PRN Reason Stop Dose Admin Docusate Sodium 100 mg 12/25/16 10:00 Colace - PO DAILY [facility] Fentanyl 1 patch 12/26/16 22:30 Duragesic 25mcg Patch - TD 12/30/16 22:21 Q72H [facility] Heparin Sodium (Porcine) 5,000 unit 12/24/16 19:05 Heparin - IVPUSH PRN PRN Heparin Sodium (Porcine) 1,000 unit 12/24/16 19:05 Heparin - IVPUSH PRN PRN Ceftriaxone Sodium 50 mls @ 100 mls/hr 12/24/16 18:15 Rocephin 1gm Ivpb (Pre-Docked) IVPB DAILY [facility] Heparin Sodium (Porcine) 25, 500 mls @ 20 mls/hr 12/24/16 19:05 000 unit/ Sodium Chloride IV TITR [facility] Protocol 1,000 UNIT/HR Insulin Aspart 1 vial 12/24/16 22:00 Novolog Vial Sliding Scale - SQ ACHS [facility] Protocol Lactobacillus Acidophilus 1 tab 12/25/16 10:00 Bacid - PO DAILY [facility] Levothyroxine Sodium 175 mcg 12/25/16 07:00 Synthroid - PO DAILY@0700 [facility] Miscellaneous 1 each 12/24/16 19:05 Duragesic Patch Waste MC PRN PRN PAIN Multivitamins/Minerals 1 each 12/25/16 10:00 Theragran-M PO DAILY [facility] Non-Formulary Medication 3 each 12/24/16 22:00 Patient's Own Med PO ACHS [facility] Ondansetron HCl 4 mg 12/24/16 19:05 Zofran Injection IVPUSH Q6H PRN NAUSEA AND/OR VOMITING Pantoprazole Sodium 40 mg 12/25/16 10:00 Protonix - PO DAILY [facility] Ranitidine HCl 150 mg 12/25/16 10:00 Zantac - PO DAILY [facility]E ASSESSMENT/PLAN 71 year-old man with a PMH of HTN, HLD, NIDDM, hypothyroidism s/p thyroid resection, c.diff, and pancreatic cancer complicated by a surgical-related GI bleed when undergoing a biliary stent procedure (09/2016). Admitted for RLE cellulitis and extensive DVT. RLE cellulitis --suffered thermal foote to RLE about 3 weeks ago --swelling and erythema improved since yesterday --Zosyn was not given; start ceftriaxone from a space heater, treated with topical antibiotic; then was bedridden for 2 days earlier this week following third round of chemo; RLE began to swell 48 hours ago and became hot and red about 24 hours ago with lymphangitis extending up to knee --start Zosyn 4.5g q8h --keep well-hydrated with IV fluids --ID following RLE DVT --on heparin drip --had IR thrombectomy and IVC filter placement today --will discuss long-term anticoagulation with patient's oncologist Dr. Luque --check cbc q12h Pancreatic cancer Neutropenia --continue pancreatic enzymes --followed at [place] for chemotherapy --neutropenic precautions Hypertension --BP well-controlled Hyperlipidemia --not on meds NIDDM --Novolog sliding scale Hypothyroidism s/p thyroid resection --continue levothyroxine h/o c.diff --no diarrhea at present --if stools should become loose, send off stool studies F/E/N Fluids: PO intake adequate Electrolytes: replete as indicated Nutrition: neutropenic, diabetic, low sodium DVT prophylaxis: heparin drip Dispo: requires ICU care. Full code. Visit type - Emergency Visit Emergency Visit: Yes ED Registration Date: 12/23/16 Care time: The patient presented to the Emergency Department on the above date and was hospitalized for further evaluation of their emergent condition. - New Patient This patient is new to me today: No - Critical Care Critical Care patient: Yes Total Critical Care Time (in minutes): 35 Critical Care Statement: The care of this patient involved high complexity decision making to prevent further life threatening deterioration of the patient 's condition and/or to evalute & treat vital organ system(s) failure or risk of failure.
[2016-12-24 22:11] LABS: MCH 30.9 pg (25.7-33.7); MCHC 33.2 g/dl (32.0-35.9); MEAN CELL VOLUME 93.2 fl (80-96); MEAN PLT VOLUME 7.2 fl (7.5-11.1); PLATELET COUNT 218 K/MM3 (134-434); RDW 15.2 % (11.9-15.9)
[2016-12-24 22:58] LABS: ANISOCYTOSIS 1+; DOHLE BODIES 1+; HYPOCHROMIA 1+; PLATELET ESTIMATE ADEQUATE (NORMAL); POLYCHROMASIA FEW
[2016-12-25] MEDS ORDERED: HEPARIN INFUSION - 500 ML IVPB ONE (01:27)
[2016-12-25] MEDS ORDERED: LEVOTHYROXINE NA 75 MCG TABLET (FP) ONE (06:21)
[2016-12-25] MEDS ORDERED: LEVOTHYROXINE NA 100 MCG TABLET (FP) ONE (06:21)
[2016-12-25] MEDS: INSULIN SLIDING SCALE (NOVOLOG) 1 VIAL SQ SCH ×3 (06:22→17:29)
[2016-12-25] MEDS ORDERED: LEVOTHYROXINE 100 MCG, LEVOTHYROXINE 75 MCG PO SCH (07:00)
[2016-12-25] MEDS ORDERED: LEVOTHYROXINE NA 175 MCG TABLET PO SCH (07:00)
[2016-12-25 07:33] LABS: CREATININE 0.7 mg/dL (0.7-1.3)
[2016-12-25 07:34] LABS: CALCIUM 7.9 mg/dL (8.5-10.1); MAGNESIUM 1.8 mg/dL (1.8-2.4)
[2016-12-25] MEDS: [UNRECOGNIZED DRUG - OTHER] PO SCH ×3 (08:30→17:29)
[2016-12-25] MEDS: PANCRELIPASE PO SCH ×3 (08:30→17:29)
--- NOTE | 2016-12-25 09:46 | CONSULT ---
Consult Referred by:: Hematology Oncology Reason for Consultation:: DVT associated w Pancreatic cancer s/p Chemo, neutropenic - History of Present Illness Chief Complaint: Pain, swelling ,redness RLE X 2d History of Present Illness: 71 y/o M w dx borderline resectable Pancreatic cancer , complicated by GI bleeding after endoscopy/ stent placement , required prolonged ICU stay , C.diff., stapling/embolization, started Chemo in Dec [place] , then Abraxane added 1 week ago ; pt felt extremely fatigued , was immobilized in bed , then developed redness , pain, swelling RLE 2 days prior to admission, mild dyspnea. Pt had US which showed DVT , but also covered empirically w ab's . Pt underwent thrombectomy and IVC filter placement ; on Heparin drip. Pt feels much better ; WBC originally 1.0 , fell to 0.7, now 1.2 w 50% neutros; no fever , off ab's - History Source History Provided By: Patient Limitations to Obtaining History: No Limitations - Past Medical History PARTS PICKER: No: Alzheimer's, CVA, Dementia, Migraine, Multiple Sclerosis, Peripheral Neuropathy, Parkinson's, Seizure, Syncope, TIA, Vertigo, Other Cardio/Vascular: No: AFIB, Aneurysm, Aortic Insufficiency, Aortic Stenosis, CAD , CHF, Deep Vein Thrombosis, HTN, Hyperlipdemia, AR, Mitral Insufficiency, Mitral Stenosis, Murmur, Pulmonary Hypertension, Other Pulmonary: No: Asthma, Bronchitis, Cancer, COPD, O2 Dependent, Pneumonia, Previously Intubated, Pulmonary Embolus, Pulmonary Fibrosis, Sleep Apnea, Other Gastrointestinal: No: Ascites, Cancer, Constipation, Crohn's Disease, Diverticulitis, Diverticulosis, Esophageal Varices, Gastritis, GERD, GI Bleed, Hemorrhoids, Hiatal Hernia, Inflamatory Bowel Disease, Irritable Bowel Disease, Pancreatitis, Peptic Ulcer Disease, Ulcerative Colitis, Other Hepatobiliary: No: Cirrhosis, Cholelithiasis, Cholecystitis, Choledocholithiasis , Hepatitis A, Hepatitis B, Hepatitis C, Other Renal/: No: Renal Failure, Renal Inusuff, BPH, Cancer, Hematuria, Hemodialysis , Neurogenic Bladder, Renal Calculi, UTI, Other Heme/Onc: Yes: Anemia, Current Chemotherapy, Hypercoaguable State Infectious Disease: Yes: C-Diff (treated) Psych: No: Addictions, Anxiety, Bipolar, Depression, Panic, Psychosis, Schizophrenia, Other Musculoskeletal: No: Bursitis, Chronic low back pain, Hemiparesis, Hemiplegia, Osteoarthritis, Paraplegia, Other Rheumatology: No: Fibromyalgia, Gout, Lupus, Rheumatoid Arthritis, Sarcoidosis, Vasculitis, Other ENT: No: Allergic Rhinitis, Sinusitis, Other Endocrine: Yes: Hypothyroidism Dermatology: No: Basal Cell, Cellulitis, Eczema, Melanoma, Psoriasis, Squamous Cell, Other - Past Surgical History Past Surgical History: Yes: Upper Endoscopy - Alcohol/Substance Use Hx Alcohol Use: No History of Substance Use: denies: None, Cocaine, Heroin, Marijuana, Prescription , Tranquilizers - Smoking History Smoking history: Never smoked Have you smoked in the past 12 months: No Aproximately how many cigarettes per day: 0 Home Medications - Allergies Allergies/Adverse Reactions: Allergies Allergy/AdvReac Type Severity Reaction Status Date / Time lisinopril Allergy Verified 12/23/16 15:02 Opioids - Morphine Analogues Allergy Verified 12/23/16 15:02 - Home Medications Home Medications: Ambulatory Orders Buspirone HCl [Buspar -] 5 mg PO ONCE 12/23/16 Canagliflozin [Invokana] 300 mg PO DAILY 12/23/16 Levothyroxine [Synthroid -] 175 mcg PO DAILY 12/23/16 Lisdexamfetamine Dimesylate [Vyvanse] 30 mg PO DAILY 12/23/16 Omeprazole Magnesium [Prilosec] 40 mg PO DAILY 12/23/16 Pioglitazone HCl [Actos] 30 mg PO DAILY 12/23/16 Ranitidine HCl [Zantac] 150 mg PO DAILY 12/23/16 Saccharomyces Boulardii [Florastor] 0 mg PO BID 12/23/16 Sitagliptin Phos/Metformin HCl [Janumet 50-1,000 mg Tablet] 1 each PO BID Review of Systems - Review of Systems Constitutional: reports: Weakness. denies: No Symptoms, Chills, Diaphoresis, Fever, Lethargy, Loss of Appetite, Malaise, Night Sweats, Unintentional Wgt. Loss, Other Eyes: reports: No Symptoms HENT: reports: No Symptoms Neck: reports: No Symptoms Cardiovascular: reports: No Symptoms Respiratory: reports: No Symptoms Gastrointestinal: reports: No Symptoms Genitourinary: reports: No Symptoms Musculoskeletal: reports: No Symptoms Integumentary: reports: No Symptoms Neurological: reports: No Symptoms Endocrine: reports: No Symptoms Hematology/Lymphatic: reports: No Symptoms Psychiatric: reports: No Symptoms Physical Exam Vital Signs: Vital Signs Temperature 98 F 12/25/16 06:00 Pulse Rate 86 12/25/16 08:00 Respiratory Rate 16 12/25/16 08:00 Blood Pressure 96/62 12/25/16 08:00 O2 Sat by Pulse Oximetry (%) 95 12/24/16 20:00 Constitutional: Yes: Well Nourished, No Distress, Calm Eyes: Yes: WNL, Conjunctiva Clear, EOM Intact HENT: Yes: WNL, Atraumatic, Normocephalic Neck: Yes: WNL, Supple, Trachea Midline Cardiovascular: Yes: WNL, Regular Rate and Rhythm Respiratory: Yes: WNL, Regular, CTA Bilaterally. No: Accessory Muscle Use, Bradypnea, Shaheen-Roberts, Cough, Diminished, Dullness, Hyperresonant, Intubated , [place], Mechanically Ventilated, On BiPap, On Nasal O2, On Venti-Mask, Orthopnea, Poor Air Entry, Rales, Rhonchi, SOB, SOB on Exertion, Stridor, Tachypnea, Wheezes, Other Gastrointestinal: Yes: WNL, Normal Bowel Sounds, Soft. No: Abdomen, Obese, Ascites, Distention, Hematemesis, Hemorrhoids, Hepatomegaly, Hernia, Hyperactive Bowel Sounds, Hypoactive Bowel Sounds, Melena, Palpable Mass, Pulsatile Mass, Rectal Bleeding, Splenomegaly, Tenderness, Tenderness, Epigastrium, Tenderness, Rebound, Vomiting, Other Musculoskeletal: Yes: Other (mild swelling , erythema RLE ; no calf tenderness) Edema: RUE: Trace Peripheral Pulses WNL: Yes Integumentary: Yes: WNL Labs: CBC, BMP 12/24/16 21:45 12/25/16 05:05 Problem List - Problems (1) DVT (deep venous thrombosis) Code(s): I82.409 - ACUTE EMBOLISM AND THOMBOS UNSP DEEP VN UNSP LOWER EXTREMITY Qualifiers: DVT location: lower extremity Affected thrombotic vein of extremity: unspecified lower extremity proximal vein Laterality: right Chronicity: acute Qualified Code(s): I82.4Y1 - Acute embolism and thrombosis of unspecified deep veins of right proximal lower extremity (2) Neutropenia Code(s): D70.9 - NEUTROPENIA, UNSPECIFIED Qualifiers: Neutropenia type: secondary to cancer chemotherapy Qualified Code(s): D70.1 - Agranulocytosis secondary to cancer chemotherapy (3) Pancreatic malignant neoplasm Code(s): C25.9 - MALIGNANT NEOPLASM OF PANCREAS, UNSPECIFIED Assessment/Plan Pt can be switched to oral AC; my preferance would be Xarelto or Eliquis , rather than warfarin ; serum creat. is wnl. Would opt to give 1 or 2 doses G- CSF 480 mcg SC today and tomorrow (if wbc still <2) . Pt will f/u w Oncologist at [place] after d/c.
[2016-12-25] MEDS ORDERED: PANTOPRAZOLE 40 MG TABLET (FP) PO SCH (10:00)
[2016-12-25] MEDS ORDERED: LACTOBACILLUS ACIDOPHILUS 1 EACH TAB (FP) PO SCH (10:00)
[2016-12-25] MEDS ORDERED: DOCUSATE SODIUM 100 MG CAPSULE (FP) PO SCH (10:00)
[2016-12-25] MEDS ORDERED: MULTIVITAMINS THER W-MINERALS COMBO TABLET (FP) PO SCH (10:00)
[2016-12-25] MEDS ORDERED: RANITIDINE HCL 150 MG TABLET (FP) PO SCH (10:00)
[2016-12-25] MEDS: CEFTRIAXONE 50 ML IVPB SCH (10:21)
--- NOTE | 2016-12-25 13:02 | PN ---
Teaching Attending Note Name of Resident: Kevin Katz ATTENDING PHYSICIAN STATEMENT I saw and evaluated the patient. I reviewed the resident's note and discussed the case with the resident. I agree with the resident's findings and plan as documented. SUBJECTIVE: Patient seen and examined in the ICU. No CP or SOB. Reports that his RLE feels improved today. No diarrhea. Intake & Output 12/22/16 12/23/16 12/24/16 12/25/16 23:59 23:59 23:59 23:59 Intake Total 5320 1450 Output Total 500 3200 2000 Balance -500 2120 -550 Weight 180 lb 181 lb 5 oz 183 lb 9 oz Last Vital Signs Temp Pulse Resp BP Pulse Ox 98.4 F 80 20 121/66 95 12/25/16 10:00 12/25/16 10:00 12/25/16 10:00 12/25/16 10:00 12/24/16 20:00 Active Medications Docusate Sodium (Colace -) 100 mg PO DAILY [facility] Last Admin: 12/25/16 10:21 Dose: 100 mg Fentanyl (Duragesic 25mcg Patch -) 1 patch TD Q72H [facility] Stop: 12/30/16 22:21 Heparin Sodium (Porcine) (Heparin -) 5,000 unit IVPUSH PRN PRN Heparin Sodium (Porcine) (Heparin -) 1,000 unit IVPUSH PRN PRN Ceftriaxone Sodium (Rocephin 1gm Ivpb (Pre-Docked)) 50 mls @ 100 mls/hr IVPB DAILY [facility] Last Admin: 12/25/16 10:21 Dose: 100 mls/hr Heparin Sodium (Porcine) 25, (000 unit/ Sodium Chloride) 500 mls @ 20 mls/hr IV TITR JOE; 1,000 UNIT/HR PRN Reason: Protocol Last Admin: 12/24/16 19:30 Dose: 20 mls/hr Insulin Aspart (Novolog Vial Sliding Scale -) 1 vial SQ ACHS [facility] PRN Reason: Protocol Last Admin: 12/25/16 06:22 Dose: 2 units Lactobacillus Acidophilus (Bacid -) 1 tab PO DAILY [facility] Last Admin: 12/25/16 10:21 Dose: 1 tab Levothyroxine Sodium 100 mcg/ (Levothyroxine Sodium 75 mcg) 175 mcg PO DAILY@ 0700 [facility] Last Admin: 12/25/16 06:22 Dose: 175 mcg Miscellaneous (Duragesic Patch Waste) 1 each [facility] PRN PRN PRN Reason: PAIN Multivitamins/Minerals (Theragran-M) 1 each PO DAILY [facility] Last Admin: 12/25/16 10:21 Dose: 1 each (Zenpep) Lipase 40, 000 Units - Pt's Own Med 3 each PO ACHS [facility] Last Admin: 12/25/16 08:30 Dose: 3 each Ondansetron HCl (Zofran Injection) 4 mg IVPUSH Q6H PRN PRN Reason: NAUSEA AND/OR VOMITING Pantoprazole Sodium (Protonix -) 40 mg PO DAILY [facility] Last Admin: 12/25/16 10:21 Dose: 40 mg Ranitidine HCl (Zantac -) 150 mg PO DAILY [facility] Last Admin: 12/25/16 10:20 Dose: 150 mg Constitutional: Yes: NAD Eyes: Yes: WNL, PERRL HENT: Yes: WNL Neck: Yes: WNL Cardiovascular: Yes: S1, S2 Respiratory: Yes: Diminished at the bases No: Rhonchi, SOB, Wheezes Gastrointestinal: Yes: Normal Bowel Sounds. No: Distention, Melena, Palpable Mass, Tenderness, Rebound, Vomiting ...Rectal Exam: No: Deferred Renal/: No: CVA Tenderness - Left, CVA Tenderness - Right Musculoskeletal: Yes: Other (RLE pain) Extremities: Yes: Erythema (RLE) Edema: Yes Edema: RLE: 2+ Peripheral Pulses WNL: (+1 rt pedal, +2 left pedal ) Integumentary: Yes: Other (pressure ulcer scars on sacral region) Neurological: Yes: WNL Psychiatric: Yes: WNL Labs: Laboratory Results - last 24 hr 12/24/16 12/24/16 12/24/16 05:00 11:35 13:42 WBC RBC Hgb Hct MCV MCHC RDW Plt Count MPV Neutrophils % Lymphocytes % Monocytes % Eosinophils % Band Neutrophils Dohle Bodies Platelet Estimate Platelet Comment Polychromasia Hypochromic-Microcytic Anisocytosis Macrocytosis PTT (Actin FS) 61.5 H D Sodium Potassium Chloride Carbon Dioxide Anion Gap BUN Creatinine POC Glucometer [phone] Random Glucose Calcium Phosphorus Magnesium Creatine Free T3 0.8 L 12/24/16 12/24/16 12/24/16 17:41 21:06 21:45 WBC 1.0 L D RBC 3.07 L Hgb 9.5 L Hct 28.6 L MCV 93.2 MCHC 33.2 RDW 15.2 Plt Count 218 MPV 7.2 L Neutrophils % 40.0 L D Lymphocytes % 42.0 H D Monocytes % 12.0 H Eosinophils % 2.0 Band Neutrophils 4.0 Dohle Bodies 1+ Platelet Estimate Adequate Platelet Comment No clumping noted Polychromasia Few Hypochromic-Microcytic 1+ Anisocytosis 1+ Macrocytosis 1+ PTT (Actin FS) Sodium Potassium Chloride Carbon Dioxide Anion Gap BUN Creatinine POC Glucometer [phone] Random Glucose Calcium Phosphorus Magnesium Creatine Free T3 12/25/16 12/25/16 12/25/16 05:05 05:05 05:05 WBC RBC Hgb Hct MCV MCHC RDW Plt Count MPV Neutrophils % Lymphocytes % Monocytes % Eosinophils % Band Neutrophils Dohle Bodies Platelet Estimate Platelet Comment Polychromasia Hypochromic-Microcytic Anisocytosis Macrocytosis PTT (Actin FS) 56.2 H Sodium 141 Potassium 3.8 Chloride 106 Carbon Dioxide 25 Anion Gap 10 BUN 14 D Creatinine 0.7 D POC Glucometer Random Glucose 153 H Calcium 7.9 L Phosphorus 3.0 D Magnesium 1.8 D Creatine Cancelled Free T3 12/25/16 05:42 WBC RBC Hgb Hct MCV MCHC RDW Plt Count MPV Neutrophils % Lymphocytes % Monocytes % Eosinophils % Band Neutrophils Dohle Bodies Platelet Estimate Platelet Comment Polychromasia Hypochromic-Microcytic Anisocytosis Macrocytosis PTT (Actin FS) Sodium Potassium Chloride Carbon Dioxide Anion Gap BUN Creatinine POC Glucometer [phone] Random Glucose Calcium Phosphorus Magnesium Creatine Free T3 Assessment/Plan Right LE DVT S/P Thrombectomy/thrombolysis (?) RLE cellulitis Recent RLE thermal burn Recent C Diff infection Leukopenia Low clinical suspicion for PE Pancreatic cancer (diagnosed 09/16) S/P chemotherapy x 3 HTN HLD DM Hypothyroidism PLAN: AC per Heme O2 as needed Would prefer to monitor off broad spectrum/ABX due to recent severe C Diff Follow cultures Local wound care PO as tolerated Floor D/C planning Dr Oreilly
--- NOTE | 2016-12-25 13:39 | PN ---
Physical Exam: SUBJECTIVE: Patient seen and examined OBJECTIVE: Vital Signs Period Temp Pulse Resp BP Sys/Pate Pulse Ox Last 24 Hr 97.8 F-98.4 F 73-88 12-20 93-134/54-87 95-100 GENERAL: The patient is awake, alert, and fully oriented, in no acute distress. HEAD: Normal with no signs of trauma. NECK: Trachea midline, full range of motion, supple. LUNGS: Breath sounds equal, clear to auscultation bilaterally, no wheezes, no crackles, no accessory muscle use. HEART: Regular rate and rhythm, S1, S2 without murmur, rub or gallop. ABDOMEN: Soft, nontender, nondistended, normoactive bowel sounds, no guarding, no rebound UPPER EXTREMITIES: 2+ pulses, warm, well-perfused, no edema LOWER EXTREMITIES: extensive varicosities bilaterally; toes on left foot dusky appearance, 2+ pulses, warm, well-perfused. No calf tenderness. RLE: erythema and swelling of right foot improved, leg is warm to touch NEUROLOGICAL: Cranial nerves II-XII intact. Normal speech. Normal gait. PSYCHIATRIC: Cooperative. Good eye contact. Appropriate mood and affect. NEUROLOGICAL: Cranial nerves II through XII grossly intact. Normal speech Laboratory Results - last 24 hr 12/24/16 12/24/16 12/24/16 05:00 11:35 13:42 WBC RBC Hgb Hct MCV MCHC RDW Plt Count MPV Neutrophils % Lymphocytes % Monocytes % Eosinophils % Band Neutrophils Dohle Bodies Platelet Estimate Platelet Comment Polychromasia Hypochromic-Microcytic Anisocytosis Macrocytosis PTT (Actin FS) 61.5 H D Sodium Potassium Chloride Carbon Dioxide Anion Gap BUN Creatinine POC Glucometer [phone] Random Glucose Calcium Phosphorus Magnesium Creatine Free T3 0.8 L 12/24/16 12/24/16 12/24/16 17:41 21:06 21:45 WBC 1.0 L D RBC 3.07 L Hgb 9.5 L Hct 28.6 L MCV 93.2 MCHC 33.2 RDW 15.2 Plt Count 218 MPV 7.2 L Neutrophils % 40.0 L D Lymphocytes % 42.0 H D Monocytes % 12.0 H Eosinophils % 2.0 Band Neutrophils 4.0 Dohle Bodies 1+ Platelet Estimate Adequate Platelet Comment No clumping noted Polychromasia Few Hypochromic-Microcytic 1+ Anisocytosis 1+ Macrocytosis 1+ PTT (Actin FS) Sodium Potassium Chloride Carbon Dioxide Anion Gap BUN Creatinine POC Glucometer [phone] Random Glucose Calcium Phosphorus Magnesium Creatine Free T3 12/25/16 12/25/16 12/25/16 05:05 05:05 05:05 WBC RBC Hgb Hct MCV MCHC RDW Plt Count MPV Neutrophils % Lymphocytes % Monocytes % Eosinophils % Band Neutrophils Dohle Bodies Platelet Estimate Platelet Comment Polychromasia Hypochromic-Microcytic Anisocytosis Macrocytosis PTT (Actin FS) 56.2 H Sodium 141 Potassium 3.8 Chloride 106 Carbon Dioxide 25 Anion Gap 10 BUN 14 D Creatinine 0.7 D POC Glucometer Random Glucose 153 H Calcium 7.9 L Phosphorus 3.0 D Magnesium 1.8 D Creatine Cancelled Free T3 12/25/16 05:42 WBC RBC Hgb Hct MCV MCHC RDW Plt Count MPV Neutrophils % Lymphocytes % Monocytes % Eosinophils % Band Neutrophils Dohle Bodies Platelet Estimate Platelet Comment Polychromasia Hypochromic-Microcytic Anisocytosis Macrocytosis PTT (Actin FS) Sodium Potassium Chloride Carbon Dioxide Anion Gap BUN Creatinine POC Glucometer [phone] Random Glucose Calcium Phosphorus Magnesium Creatine Free T3 Active Medications Generic Name Dose Route Start Last Admin Trade Name Freq PRN Reason Stop Dose Admin Docusate Sodium 100 mg 12/25/16 10:00 12/25/16 10:21 Colace - PO 100 mg DAILY [facility] Administration Fentanyl 1 patch 12/26/16 22:30 Duragesic 25mcg Patch - TD 12/30/16 22:21 Q72H JOE Heparin Sodium (Porcine) 5,000 unit 12/24/16 19:05 Heparin - IVPUSH PRN PRN Heparin Sodium (Porcine) 1,000 unit 12/24/16 19:05 Heparin - IVPUSH PRN PRN Ceftriaxone Sodium 50 mls @ 100 mls/hr 12/24/16 18:15 12/25/16 10:21 Rocephin 1gm Ivpb (Pre-Docked) IVPB 100 mls/hr DAILY [facility] Administration Heparin Sodium (Porcine) 25, 500 mls @ 20 mls/hr 12/24/16 19:05 12/24/16 19:30 000 unit/ Sodium Chloride IV 20 mls/hr TITR JOE Administration Protocol 1,000 UNIT/HR Insulin Aspart 1 vial 12/24/16 22:00 12/25/16 06:22 Novolog Vial Sliding Scale - SQ 2 units ACHS JOE Administration Protocol Lactobacillus Acidophilus 1 tab 12/25/16 10:00 12/25/16 10:21 Bacid - PO 1 tab DAILY [facility] Administration Levothyroxine Sodium 100 mcg/ 175 mcg 12/25/16 07:00 12/25/16 06:22 Levothyroxine Sodium 75 mcg PO 175 mcg DAILY@0700 [facility] Administration Miscellaneous 1 each 12/24/16 19:05 Duragesic Patch Waste MC PRN PRN PAIN Multivitamins/Minerals 1 each 12/25/16 10:00 12/25/16 10:21 Theragran-M PO 1 each DAILY [facility] Administration (Zenpep) Lipase 40, 3 each 12/24/16 22:00 12/25/16 12:00 000 Units - Pt's Own PO 1 each Med ACHS [facility]E Administration Ondansetron HCl 4 mg 12/24/16 19:05 Zofran Injection IVPUSH Q6H PRN NAUSEA AND/OR VOMITING Pantoprazole Sodium 40 mg 12/25/16 10:00 12/25/16 10:21 Protonix - PO 40 mg DAILY [facility] Administration Ranitidine HCl 150 mg 12/25/16 10:00 12/25/16 10:20 Zantac - PO 150 mg DAILY [facility] Administration ASSESSMENT/PLAN: 71 year-old man with a PMH of HTN, HLD, NIDDM, hypothyroidism s/p thyroid resection, c.diff, and pancreatic cancer complicated by a surgical-related GI bleed when undergoing a biliary stent procedure (09/2016). Admitted for RLE cellulitis and extensive DVT. RLE cellulitis --swelling and erythema continues to resolve --continue ceftriaxone day #2, need to switch to PO for discharge, will discuss with ID RLE DVT --on heparin drip --had IR thrombectomy and IVC filter placement today --will discuss long-term anticoagulation with patient's oncologist Dr. Luque --check cbc q12h Pancreatic cancer Neutropenia --continue pancreatic enzymes --followed at [place] for chemotherapy --neutropenic precautions Hypertension --BP well-controlled Hyperlipidemia --not on meds NIDDM --Novolog sliding scale Hypothyroidism s/p thyroid resection --continue levothyroxine h/o c.diff --no diarrhea at present --if stools should become loose, send off stool studies F/E/N Fluids: PO intake adequate Electrolytes: replete as indicated Nutrition: neutropenic, diabetic, low sodium DVT prophylaxis: heparin drip Dispo: requires ICU care. Full code. Visit type
[2016-12-25] MEDS ORDERED: ENOXAPARIN NA (PORCINE) 80 MG/0.8 ML DISP.SYRIN SQ SCH (14:15)
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
--- NOTE | 2016-12-25 15:06 | PN ---
Progress Note, Physician History of Present Illness: Patient seen and examined in ICU doing well today - Current Medication List Current Medications: Active Medications Docusate Sodium (Colace -) 100 mg PO DAILY [facility] Last Admin: 12/25/16 10:21 Dose: 100 mg Enoxaparin Sodium (Lovenox -) 80 mg SQ Q12H [facility] Fentanyl (Duragesic 25mcg Patch -) 1 patch TD Q72H [facility] Stop: 12/30/16 22:21 Ceftriaxone Sodium (Rocephin 1gm Ivpb (Pre-Docked)) 50 mls @ 100 mls/hr IVPB DAILY [facility] Last Admin: 12/25/16 10:21 Dose: 100 mls/hr Insulin Aspart (Novolog Vial Sliding Scale -) 1 vial SQ [facility] PRN Reason: Protocol Last Admin: 12/25/16 12:30 Dose: 6 units Lactobacillus Acidophilus (Bacid -) 1 tab PO DAILY [facility] Last Admin: 12/25/16 10:21 Dose: 1 tab Levothyroxine Sodium 100 mcg/ (Levothyroxine Sodium 75 mcg) 175 mcg PO DAILY@ 0700 [facility] Last Admin: 12/25/16 06:22 Dose: 175 mcg Miscellaneous (Duragesic Patch Waste) 1 each [facility] PRN PRN PRN Reason: PAIN Multivitamins/Minerals (Theragran-M) 1 each PO DAILY [facility] Last Admin: 12/25/16 10:21 Dose: 1 each (Zenpep) Lipase 40, 000 Units - Pt's Own Med 3 each PO ACHS [facility] Last Admin: 12/25/16 12:00 Dose: 1 each Ondansetron HCl (Zofran Injection) 4 mg IVPUSH Q6H PRN PRN Reason: NAUSEA AND/OR VOMITING Pantoprazole Sodium (Protonix -) 40 mg PO DAILY [facility] Last Admin: 12/25/16 10:21 Dose: 40 mg Ranitidine HCl (Zantac -) 150 mg PO DAILY [facility] Last Admin: 12/25/16 10:20 Dose: 150 mg - Objective Vital Signs: Vital Signs Temperature 98.4 F 12/25/16 10:00 Pulse Rate 80 12/25/16 10:00 Respiratory Rate 20 12/25/16 10:00 Blood Pressure 121/66 12/25/16 10:00 O2 Sat by Pulse Oximetry (%) 95 12/24/16 20:00 Constitutional: Yes: Well Nourished, No Distress Eyes: Yes: EOM Intact HENT: Yes: Atraumatic Neck: Yes: Supple Cardiovascular: Yes: Regular Rate and Rhythm Respiratory: Yes: CTA Bilaterally Gastrointestinal: Yes: Soft Extremities: Yes: Other (warm slightly) Edema: Yes Edema: RLE: Trace (much improved ) Integumentary: Yes: Other (RLE minimal redness) Neurological: Yes: Alert, Oriented Labs: CBC, BMP 12/24/16 21:45 12/25/16 05:05 INR, PTT INR 1.03 (0.82-1.09) 12/24/16 05:00 Assessment/Plan 71M with pancreatic cancer currently undergoing chemotherapy at ward presents to the ED with SOB and RLE swelling for 4 days found to have a DVT DVT-provoked by cancer and decreased movement stop hep gtt start lovenox monitor for worsening thrombocytopenia Pancreatic CA Error in the chart, Pt. did not have whipple procedure, currently going under chemotherapy to shrink tumor burden and possibly be a candidate for whipple procedure Chemotherapy as per Dr. Luque at [facility] will follow up with oncologist at ward HTN Stable for now DM continue Insulin Sliding scale HLD no issues Hypothyroidism continue Levothyroxine 175mcg Cellulitis: does not clinically have a cellulitis redness likely secondary to DVT stop Abx FEN: no IVF no electrolyte issues on diet PPx: stop hep gtt start lovenox protonix PT consult discharge home
[2016-12-25 15:41] VITALS: TEMP 98
[2016-12-25] MEDS ORDERED: PT OWN MED DRAWER 7, Y5N ONE (15:58)
[2016-12-25 16:27] VITALS: BP 120/65; PULSE 78
[2016-12-26] MEDS ORDERED: fentaNYL 25mcg/hr PATCH.TD72 TD SCH (22:30)
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
== END 2016-12-25 18:33 | disposition home or self-care (01) | DRG 271 ==
LOC: FER 15:00 → JICU 20:30
PROVIDERS: ADMIT Internal Medicine; ATTEND Nurse Practitioner Acute Care
PROC: 06CM3ZZ Extirpation of Matter from Right Femoral Vein, Percutaneous Approach (ICD-10-PCS; principal; 2016-12-24)
PROC: 06H03DZ Insertion of Intraluminal Device into Inferior Vena Cava, Percutaneous Approach (ICD-10-PCS; 2016-12-24)
PROC: 3E033GC Introduction of Other Therapeutic Substance into Peripheral Vein, Percutaneous Approach (ICD-10-PCS; 2016-12-24)
DX: I82.411 Acute embolism and thrombosis of right femoral vein (principal); C25.7 Malignant neoplasm of other parts of pancreas; L03.115 Cellulitis of right lower limb; I10 Essential (primary) hypertension; E78.5 Hyperlipidemia, unspecified; E03.9 Hypothyroidism, unspecified; D70.8 Other neutropenia; E11.40 Type 2 diabetes mellitus with diabetic neuropathy, unspecified; T24.001A Burn of unspecified degree of unspecified site of right lower limb, except ankle and foot, initial encounter
CPT/HCPCS: 36415; 37187; 37191; 73590-TC-RT; 73630-TC-RT; 76937-TC; 80048; 80053; 80076; 81003; 81015; 82272; 82550; 83605; 83735; 83880; 84100; 84439; 84443; 84481; 84484; 85025; 85610; 85730; 86850; 86900; 86901; 87040; 87086; 87254; 87804; 93005; 93971-TC; 99283-25; C1757; C1769; C1880; C1887; C1894; J1644

== ENCOUNTER 2017-02-17 12:49 | Inpatient (IN) | payer OTHER, MEDICARE ==
[2017-02-17] MEDS ORDERED: ACETAMINOPHEN INJECTION 100 ML IVPB ONE (13:03)
--- NOTE | 2017-02-17 13:03 | PDOC ---
History of Present Illness - General History Source: Patient, Family Exam Limitations: No Limitations - History of Present Illness Initial Comments: 02/17/17 13:13 The patient is a 71-year-old man, accompanied by his and daughter, with a significant past medical history of pancreatic cancer (on chemotherapy, hasn't received in three weeks, scheduled on 02/19/2017) complicated by GI bleed ( requiring ICU admission for 2 weeks that was also complicated by C. Diff), hypertension, hypercholesterolemia, right lower extremity deep venous thrombosis , diabetes mellitus and hypothyroidism status post thyroid resection who presents to the emergency department via EMS for further evaluation of altered mental status. As per patient's , the patient was in his usual state of health last night and this morning, before she headed to [facility]. At approximately 10:00 AM, the patient called his , informing her to come immediately home. He was found siting in the bathroom toilet complaining of severe left sided abdominal pain and was somewhat coherent. As per patient's daughter, the patient has been noted to have loose watery brown stools. Upon ER arrival, patient was found to have a fever of 102.3. Allergies: Lisinopril. Opiods. Morphine. Flagyl Past Surgical History: Thyroid resection. Social History: . Retired. No tobacco, ETOH and recreational drug use. <Karlene Fine - Last Filed: 02/17/17 15:09> - General History Source: Patient, EMS, Family, Old Records Exam Limitations: No Limitations <Alma Hernandez - Last Filed: 02/17/17 15:16> - General Stated Complaint: SEPSIS Time Seen by Provider: 02/17/17 13:02 Past History <Karlene Fine - Last Filed: 02/17/17 15:09> - Past Medical History Anemia: No Asthma: No Cancer: Yes (thyroid cancer) Cardiac Disorders: No CVA: No COPD: No CHF: No Dementia: No Diabetes: Yes GI Disorders: No Disorders: No HTN: Yes Hypercholesterolemia: Yes Liver Disease: No Seizures: No Thyroid Disease: Yes (throid ca) - Surgical History Abdominal Surgery: No Appendectomy: No Cardiac Surgery: No Cholecystectomy: No Lung Surgery: No Neurologic Surgery: No Orthopedic Surgery: No - Psycho/Social/Smoking Cessation Hx Anxiety: No Suicidal Ideation: No Smoking Status: No Smoking History: Never smoked Have you smoked in the past 12 months: No Number of Cigarettes Smoked Daily: 0 Hx Alcohol Use: No Drug/Substance Use Hx: No Substance Use Type: None Hx Substance Use Treatment: No <Alma Hernandez - Last Filed: 02/17/17 15:16> - Past Medical History Allergies/Adverse Reactions: Allergies Allergy/AdvReac Type Severity Reaction Status Date / Time lisinopril Allergy Verified 02/17/17 13:10 Opioids - Morphine Analogues Allergy Verified 02/17/17 13:10 Home Medications: Ambulatory Orders Buspirone HCl [Buspar -] 5 mg PO ONCE 12/23/16 Canagliflozin [Invokana] 300 mg PO DAILY 12/23/16 Levothyroxine [Synthroid -] 175 mcg PO DAILY 12/23/16 Lisdexamfetamine Dimesylate [Vyvanse] 30 mg PO DAILY 12/23/16 Omeprazole Magnesium [Prilosec] 40 mg PO DAILY 12/23/16 Pioglitazone HCl [Actos] 30 mg PO DAILY 12/23/16 Ranitidine HCl [Zantac] 150 mg PO DAILY 12/23/16 Saccharomyces Boulardii [Florastor] 0 mg PO BID 12/23/16 Sitagliptin Phos/Metformin HCl [Janumet 50-1,000 mg Tablet] 1 each PO BID Amoxicillin/Potassium Clav [Augmentin 500-125 Tablet] 1 each PO BID #8 tablet Enoxaparin [Lovenox -] 80 mg SQ Q12H #60 disp.syrin 12/25/16 Review of Systems - Review of Systems Able to Perform ROS?: Yes (Limited, per family.) Comments:: 02/17/17 15:10 GENERAL/CONSTITUTIONAL: No fever or chills. No weakness. HEAD, EYES, EARS, NOSE AND THROAT: No change in vision. No ear pain or discharge. No sore throat. CARDIOVASCULAR: No chest pain or shortness of breath. RESPIRATORY: No cough, wheezing, or hemoptysis. GASTROINTESTINAL: Yes: left sided abdominal pain. No nausea, vomiting, diarrhea or constipation. GENITOURINARY: No dysuria, frequency, or change in urination. MUSCULOSKELETAL: No joint or muscle swelling or pain. No neck or back pain. SKIN: No rash NEUROLOGIC: No headache, vertigo, loss of consciousness, or change in strength/ sensation. ENDOCRINE: No increased thirst. No abnormal weight change. HEMATOLOGIC/LYMPHATIC: No anemia, easy bleeding, or history of blood clots. ALLERGIC/IMMUNOLOGIC: No hives or skin allergy. <Karlene Fine - Last Filed: 02/17/17 15:09> *Physical Exam - Vital Signs Last Vital Signs Temp Pulse Resp BP Pulse Ox 102.3 F H 123 H 20 88/55 100 02/17/17 13:07 02/17/17 13:07 02/17/17 13:07 02/17/17 13:07 02/17/17 13:07 - Physical Exam Comments: 02/17/17 13:13 <Karlene Fine - Last Filed: 02/17/17 15:09> ED Treatment Course - LABORATORY CBC & Chemistry Diagram: 02/17/17 13:50 02/17/17 13:50 - RADIOLOGY Radiograph Interpretation: 02/17/17 15:08 EXAM: RAD/CHEST X-RAY PORTABLE IMPRESSION: A single AP view the chest reveals a right jugular line with its tip in the SVC, degenerative changes, clear lungs, normal mediastinum and sharp angles. An acute process is not seen. Soft tissues are intact. <Karlene Fine - Last Filed: 02/17/17 15:09> - LABORATORY CBC & Chemistry Diagram: 02/17/17 13:50 02/17/17 13:50 <Alma Hernandez - Last Filed: 02/17/17 15:16> Medical Decision Making - Medical Decision Making 02/17/17 14:[address] Page sent out to [address] Morro Atkins. 02/17/17 14:48 MicroBlogged Hospitalist. 02/17/17 15:[address] Atkins. Case was discussed. <Karlene Fine - Last Filed: 02/17/17 15:09> - Medical Decision Making 02/17/17 13:28 71-year-old male with history of hypertension, hypothyroid disease, pancreatic canceron chemotherapy and radiation, diabetes, diverticulitis/diverticulosis, DVT in the right lower extremity who presents the emergency department with family who state that the patient has had abdominal pain and diarrhea since this morning. The patient is febrile, tachycardic and hypotensive in the ED. Differential diagnosis includes but is not limited to: Severe sepsis/septic shock, DKA, diverticulitis, gastroenteritis, colitis, dehydration, toxic/ metabolic derangement, pneumonia, urinary tract infection. Plan: 1. IV fluids for resuscitation and hydration 2. [place] culture 3. Labs 4. IV antibiotics 5. Antipyretics 6. Observe and reevaluate urine 02/17/17 15:15 Addendum: The patient remains hypotensive after 3L of NS. He has not had any urine output at this time so he is likely volume depleted. Will give an additional 2L IVF and admit to the ICU. ICU bed approved by Dr Atkins. The patient has been endorsed to the hospitalist. <Alma Hernandez - Last Filed: 02/17/17 15:16> *DC/Admit/Observation/Transfer - Attestations Scribe Attestion: 02/17/17 13:13 Documentation prepared by Karlene Fine, acting as medical office asst for Alma Hernandez MD. <Karlene Fine - Last Filed: 02/17/17 15:09> - Discharge Dispostion Admit: Yes - Attestations Physician Attestion: 02/17/17 13:30 I, Dr. Alma Hernandez, attest that the scribes documentation that appears above has been prepared under my direction and personally reviewed by me in its entirety. I confirmed that the note above accurately reflects all work, treatment, procedures, and medical decision-making performed by me. <Alma Hernandez - Last Filed: 02/17/17 15:16> Diagnosis at time of Disposition: Severe sepsis - Discharge Dispostion Condition at time of disposition: Fair
[2017-02-17] MEDS ORDERED: SODIUM CHLORIDE 1,000 ML IV STA ×2 (13:08)
[2017-02-17] MEDS ORDERED: ACETAMINOPHEN 500 MG TABLET (FP) PO ONE (13:08)
[2017-02-17] MEDS ORDERED: PIPERACILLIN/TAZOB 3.375 GM/50 ML PRE-DOCKED IV ONE (13:19)
[2017-02-17] MEDS ORDERED: VANCOMYCIN 1,000 MG in DEXTROSE 5%-WATER - 250 ML IVPB ONE (13:19)
[2017-02-17] MEDS ORDERED: ACETAMINOPHEN 1000 MG/100 ML VIAL (NON FORMULARY) IVPB ONE (13:20)
[2017-02-17] MEDS ORDERED: PIPERACILLIN/TAZOB 3.375 GM 50 ML IVPB ONE (13:51)
[2017-02-17] MEDS ORDERED: VANCOMYCIN 1 GRAM (PRE-DOCKED) 250 ML IVPB ONE (13:51)
[2017-02-17 13:58] LABS: BASOPHIL 0.5 % (0-2.0); EOSINOPHIL 0.2 % (0-4.5); MCH 28.5 pg (25.7-33.7); MCHC 31.5 g/dl (32.0-35.9); MEAN CELL VOLUME 90.4 fl (80-96); MEAN PLT VOLUME 7.5 fl (7.5-11.1); NEUTROPHILS 94.1 % (42.8-82.8); PLATELET COUNT 261 K/MM3 (134-434); RDW 17.2 % (11.9-15.9)
[2017-02-17 14:16] LABS: INR 1.04 (0.82-1.09); PROTHROMBIN TIME (PATIENT) 11.4 SEC (9.98-11.88)
[2017-02-17 14:19] LABS: ACTIVATED PTT 34.2 SECONDS (26.9-34.4)
[2017-02-17] MEDS ORDERED: SODIUM CHLORIDE 1,000 ML IV ONE (14:19)
[2017-02-17] MEDS ORDERED: SODIUM CHLORIDE 2,000 ML IV STA (14:26)
[2017-02-17 14:28] LABS: ALBUMIN 2.9 g/dl (3.4-5.0); BILIRUBIN,TOTAL 0.5 mg/dL (0.2-1.0); CALCIUM 8.5 mg/dL (8.5-10.1); CREATININE 1.7 mg/dL (0.7-1.3)
[2017-02-17 14:38] LABS: VENOUS PH 7.32 (7.32-7.42)
[2017-02-17 14:39] LABS: VENOUS BLOOD GAS HCO3 19.5 meq/L (19-25)
[2017-02-17] MEDS ORDERED: NOREPINEPHRINE BITARTRATE 4 MG/4 ML ML IV ONE ×2 (15:37→21:33)
[2017-02-17] MEDS: NOREPINEPHRINE BITARTRATE 8,000 MCG in SODIUM CHLORIDE 0.45% 992 ML IV SCH ×3 (15:43→22:10)
[2017-02-17 16:17] LABS: URINE APPEARANCE CLEAR; URINE BILIRUBIN NEGATIVE (NEGATIVE); URINE BLOOD NEGATIVE (NEGATIVE); URINE COLOR LTYELLOW; URINE GLUCOSE (UA) 3+ (NEGATIVE); URINE KETONE NEGATIVE (NEGATIVE); URINE LEUK ESTERASE NEGATIVE (NEGATIVE); URINE NITRITE NEGATIVE (NEGATIVE); URINE UROBILINOGEN NEGATIVE E.U./dl (0.2-1.0)
[2017-02-17 16:31] LABS: URINE PROTEIN 2+ (NEGATIVE)
[2017-02-17 16:32] LABS: URINE BACTERIA RARE /hpf (NONE SEEN); URINE MUCUS RARE; URINE RBC 1 /hpf (0-3); URINE WBC 2 /hpf (3-5)
--- NOTE | 2017-02-17 17:29 | HP ---
CHIEF COMPLAINT: abdominal pain and diarrhea HISTORY OF PRESENT ILLNESS: 71M with history of pancreatic Ca on chemo/radiation, HTN DVT on lovenox s/p IVC filter, DM HLD hypothyroidism s/p thyroid resection presents to the ED with a chief complaint of left sided abdominal and and 3-4 episodes of watery diarrhea. He states he did not see any blood in his stool. Patient states he has a history of diverticulitis and thinks it may be from that. He was in his usual state of health until this morning when he started having the abdominal pain and diarrhea. He endorses fevers and chills as well. Patient also has a history of C. Diff and was treated with PO vancomycin. He denies chest pain or shrotness of breath. denies Dysuria or hematuria. denies nausea. when patient presented to the ED he was noted to be hypotensive and febrile. Started on broad spectrum ABx and admitted to ICU for septic shock as he recieved >30ml/kg of fluids and did not respond and required levophed and central line placement. Recent Travel: PAST MEDICAL HISTORY:As above PAST SURGICAL HISTORY: As above Social History: Smoking:Denies Alcohol:Denies Drugs: Denies Family History: Allergies lisinopril Allergy (Verified 02/17/17 13:10) Opioids - Morphine Analogues Allergy (Verified 02/17/17 13:10) HOME MEDICATIONS: Home Medications Medication Instructions Recorded Buspirone HCl [Buspar -] 5 mg PO ONCE 12/23/16 Canagliflozin [Invokana] 300 mg PO DAILY 12/23/16 Levothyroxine [Synthroid -] 175 mcg PO DAILY 12/23/16 Lisdexamfetamine Dimesylate 30 mg PO DAILY 12/23/16 [Vyvanse] Omeprazole Magnesium [Prilosec] 40 mg PO DAILY 12/23/16 Pioglitazone HCl [Actos] 30 mg PO DAILY 12/23/16 Ranitidine HCl [Zantac] 150 mg PO DAILY 12/23/16 Saccharomyces Boulardii [Florastor] 0 mg PO BID 12/23/16 Sitagliptin Phos/Metformin HCl 1 each PO BID 12/23/16 [Janumet 50-1,000 mg Tablet] Amoxicillin/Potassium Clav 1 each PO BID #8 tablet 12/25/16 [Augmentin 500-125 Tablet] Enoxaparin [Lovenox -] 80 mg SQ Q12H #60 disp.emani 12/25/16 REVIEW OF SYSTEMS CONSTITUTIONAL: Absent: generalized weakness, malaise, loss of appetite, weight change present : fever, chills, diaphoresis, HEENT: Absent: rhinorrhea, nasal congestion, throat pain, throat swelling, difficulty swallowing, mouth swelling, ear pain, eye pain, visual changes CARDIOVASCULAR: Absent: chest pain, syncope, palpitations, irregular heart rate, lightheadedness , peripheral edema RESPIRATORY: Absent: cough, shortness of breath, dyspnea with exertion, orthopnea, wheezing, stridor, hemoptysis GASTROINTESTINAL: Absent: abdominal distension, nausea, vomiting, , constipation, melena, hematochezia Present: abdominal pain,diarrhea GENITOURINARY: Absent: dysuria, frequency, urgency, hesitancy, hematuria, flank pain, genital pain MUSCULOSKELETAL: Absent: myalgia, arthralgia, joint swelling, back pain, neck pain SKIN: Absent: rash, itching, pallor HEMATOLOGIC/IMMUNOLOGIC: Absent: easy bleeding, easy bruising, lymphadenopathy, frequent infections ENDOCRINE: Absent: unexplained weight gain, unexplained weight loss, heat intolerance, cold intolerance NEUROLOGIC: Absent: headache, focal weakness or paresthesias, dizziness, unsteady gait, seizure, mental status changes, bladder or bowel incontinence PSYCHIATRIC: Absent: anxiety, depression, suicidal or homicidal ideation, hallucinations. PHYSICAL EXAMINATION Vital Signs - 24 hr 02/17/17 02/17/17 02/17/17 15:43 16:05 16:16 Pulse Rate 86 Pulse Rate [ 86 85 Apical] Blood Pressure 78/54 Blood Pressure 74/54 75/55 [Left Arm] GENERAL: Awake, alert, and fully oriented, in no acute distress. HEAD: Normal with no signs of trauma. EYES: Pupils equal, round and reactive to light, extraocular movements intact EARS, NOSE, THROAT:Dry mucous membranes. NECK: Normal range of motion LUNGS: Breath sounds equal, clear to auscultation bilaterally HEART: Regular rate and rhythm, normal S1 and S2 ABDOMEN: Soft, nontender, not distended, hyperactive bowel sound. MUSCULOSKELETAL: No CVA tenderness. LOWER EXTREMITIES: No calf tenderness. NEUROLOGICAL: Cranial nerves II-XII grossly intact. Normal speech. ASSESSMENT/PLAN: 71M with an extensive PMH presents to the ED with septic shock and diarrhea: Septic shock: patient is febrile tachycardic and hypotensive. Despite fluid resuscitation he remains hypotensive. Also has evidence of end organ damage as evidenced by ANIYAH. likely secondary to an intra-abdominal process Admit to ICU Central line for CVP monitoring Levophed to keep MAP >65 IVF pain control f/u cultures and stool studies CXR no acute pathology UA WNL Strict I/O tylenol PRN fever antiemetics History of DVT: continue lovenox 120mg hs s/p IVC filter Pancreatic Ca: outpatient follow up with Dr. Luque Hypothyroidism: continue synthroid 175mcg Qam DM: Hold oral hypoglycemics ISS fingersticks ACHS HLD: not on meds no issues FEN: NS @ 100ml/hr and boluses PRN no electrolyte issues low fat diet PPx: Lovenox therapeutic dosing Protonx PT consult ICU care CCTime 1 hour not including central line placement Visit type - Emergency Visit Emergency Visit: Yes ED Registration Date: 02/17/17 Care time: The patient presented to the Emergency Department on the above date and was hospitalized for further evaluation of their emergent condition. - New Patient This patient is new to me today: Yes Date on this admission: 02/17/17 - Critical Care Critical Care patient: Yes Total Critical Care Time (in minutes): 60 Critical Care Statement: The care of this patient involved high complexity decision making to prevent further life threatening deterioration of the patient 's condition and/or to evalute & treat vital organ system(s) failure or risk of failure.
--- NOTE | 2017-02-17 17:30 | PROC ---
Procedure Note Procedure: Right internal jugular central line Central Line Insertion Indication: CVP Monitoring, Sepsis, Vasopressor Risks and Benefits Explained: Yes Consent on Chart: Yes Central Line: Triple Lumen Catheter Anesthesia: 1% Lidocaine Sterile Technique: Yes Ultrasound Guided Assistance: Yes Position: Right Internal Jugular Post Insertion: Yes: Bilateral Breath Sounds, Bilateral Chest Expansion, Chest X-Ray Ordered Sterile Dressing Applied: Yes
--- NOTE | 2017-02-17 17:40 | PN ---
Teaching Attending Note Name of Resident: Kevin Katz ATTENDING PHYSICIAN STATEMENT I saw and evaluated the patient. I reviewed the resident's note and discussed the case with the resident. I agree with the resident's findings and plan as documented. SUBJECTIVE: 71 year old male with recently diagnosed pancreatic cancer presents today after an acute onset of left sided abdominal pain associated with 3-4 episodes of watery diarrhea and fever . Upon presentation found to be febrile and hypotensive . Had recent history of cdiff which was treated with PO Vancomycin. Last chemotherapy 3 weeks ago . OBJECTIVE: Vital Signs Temperature 102.3 F H 02/17/17 13:07 Pulse Rate 85 02/17/17 16:16 Respiratory Rate 20 02/17/17 14:35 Blood Pressure 75/55 02/17/17 16:16 O2 Sat by Pulse Oximetry (%) 99 02/17/17 14:35 ABD NT , non distended , no guarding no rebound EXT no edema Lungs - clear Neuro - grossly intact but exam is limited Abnormal Lab Results 02/17/17 02/17/17 02/17/17 13:50 13:50 13:50 RBC 3.70 L D Hgb 10.5 L D Hct 33.5 L D MCHC 31.5 L RDW 17.2 H D Neutrophils % 94.1 H D Lymphocytes % 3.7 L D Monocytes % 1.5 L D Chloride 108 H Carbon Dioxide 19 L D BUN 38 H D Creatinine 1.7 H D Random Glucose 257 H D Lactic Acid 3.520 H* Total Protein 6.0 L Albumin 2.9 L Urine Protein Urine Glucose (UA) 02/17/17 15:31 RBC Hgb Hct MCHC RDW Neutrophils % Lymphocytes % Monocytes % Chloride Carbon Dioxide BUN Creatinine Random Glucose Lactic Acid Total Protein Albumin Urine Protein 2+ H Urine Glucose (UA) 3+ H ASSESSMENT AND PLAN: 71 year old male with history of pancreatic cancer , recent chemotherapy 3 weeks ago presents with severe sepsis / hypotension/ end organ failure Source is unclear at this time . Did not respond to IVF , total of 5 L given . -Levophed started - needs central line - admit to ICU - broad spectrum antibiotics - Blood Cultures - stool CDIFF
[2017-02-17 17:52] VITALS: BMI 26.5
[2017-02-17] MEDS ORDERED: ONDANSETRON 4 MG/2 ML VIAL IVPB PRN (18:22)
[2017-02-17] MEDS: SODIUM CHLORIDE 1,000 ML IV SCH (18:44)
--- NOTE | 2017-02-17 20:16 | CONSULT ---
Consult Consult Specialty:: Pulm/CC - History of Present Illness History of Present Illness: Pt is a 71yr old man with PMHx of pancreatic cancer (diagnosed 09/16) now s/p whipple procedure, HTN, HLD, DM, hypothyroidism in setting of thyroid resection. Of note pt whipple procedure complicated by GIB requiring extended hospital stay with intubation. Pt with recent treatment for c. diff, and extensive RLE dvt in December of 2016 (IVF filter placed 12/24). Pt now presents to the ER with CC of AMS, subjective fever/chills. Pt found to have BUN/Cr 38/ 1.7 (was 14/0.7 on 12/25), lactic acid of 3.570 and initial vital signs of 88/ 58. HR 123, RR 20 100% o2 and 102.3. BP unresponsive to fluids and started on IVF, vanc/zosyn and admitted to the ICU for further management. Upon assessment pt denies chest pain/sob/headache/n/v or diarrhea. Endorses now resolved LLQ abdominal pain and difficulty urinating without melendez. 86/51 on 18mcg of levophed, hr 90, 98% on 5LNC, RR 19. - History Source History Provided By: Patient, Medical Record Limitations to Obtaining History: No Limitations - Past Medical History Infectious Disease: Yes: C-Diff (treated) Endocrine: Yes: Hypothyroidism - Past Surgical History Past Surgical History: Yes: Upper Endoscopy - Alcohol/Substance Use Hx Alcohol Use: No - Smoking History Smoking history: Never smoked Have you smoked in the past 12 months: No Aproximately how many cigarettes per day: 0 Home Medications - Allergies Allergies/Adverse Reactions: Allergies Allergy/AdvReac Type Severity Reaction Status Date / Time lisinopril Allergy Verified 02/17/17 13:10 Opioids - Morphine Analogues Allergy Verified 02/17/17 13:10 - Home Medications Home Medications: Ambulatory Orders Buspirone HCl [Buspar -] 5 mg PO ONCE 12/23/16 Canagliflozin [Invokana] 300 mg PO DAILY 12/23/16 Levothyroxine [Synthroid -] 175 mcg PO DAILY 12/23/16 Lisdexamfetamine Dimesylate [Vyvanse] 30 mg PO DAILY 12/23/16 Omeprazole Magnesium [Prilosec] 40 mg PO DAILY 12/23/16 Pioglitazone HCl [Actos] 30 mg PO DAILY 12/23/16 Ranitidine HCl [Zantac] 150 mg PO DAILY 12/23/16 Saccharomyces Boulardii [Florastor] 0 mg PO BID 12/23/16 Sitagliptin Phos/Metformin HCl [Janumet 50-1,000 mg Tablet] 1 each PO BID Amoxicillin/Potassium Clav [Augmentin 500-125 Tablet] 1 each PO BID #8 tablet Enoxaparin [Lovenox -] 80 mg SQ Q12H #60 disp.syrin 12/25/16 Review of Systems - Review of Systems Constitutional: reports: Chills, Malaise Cardiovascular: denies: Chest Pain, Shortness of Breath Respiratory: denies: Cough, SOB Gastrointestinal: reports: Abdominal Pain. denies: Diarrhea, Nausea, Vomiting, Vomiting Blood Genitourinary: reports: Other (difficulty urinating). denies: Dysuria Neurological: reports: Confusion. denies: Headache Physical Exam Vital Signs: Vital Signs Period Temp Pulse Resp BP Sys/Pate Pulse Ox Last 24 Hr 97.5 F-102.3 F 85-123 15-20 70-96/50-62 99-100 Intake & Output 02/14/17 02/15/17 02/16/17 02/17/17 23:59 23:59 23:59 23:59 Output Total 200 Balance -200 Weight 195 lb 8 oz Constitutional: Yes: Well Nourished, No Distress, Calm Eyes: Yes: PERRL, Other (hx of cataract) HENT: Yes: Normocephalic. No: Atraumatic Neck: Yes: Other (rt tlc and rt side port) Cardiovascular: Yes: Tachycardia (low 100s), S1, S2 Respiratory: Yes: Diminished (bilateral 1/3 field down), On Nasal O2. No: SOB Gastrointestinal: Yes: Normal Bowel Sounds, Distention. No: Tenderness (pt endorses being resolved) ...Rectal Exam: Yes: Deferred Renal/: Yes: Melendez Present (yellow output). No: CVA Tenderness - Left, CVA Tenderness - Right Musculoskeletal: Yes: WNL Extremities: Yes: Other (rt 4th metatarsal fracture per pt, with bandage.) Edema: No Peripheral Pulses WNL: Yes (+2 rt pedal pulses, +1 left pedal pulse) Integumentary: Yes: Other (2 eschar covered wound to RLE, [employer]) Neurological: Yes: WNL ...Motor Strength: WNL Psychiatric: Yes: WNL Labs: Abnormal Lab Results 02/17/17 02/17/17 02/17/17 13:50 13:50 13:50 RBC 3.70 L D Hgb 10.5 L D Hct 33.5 L D MCHC 31.5 L RDW 17.2 H D Neutrophils % 94.1 H D Lymphocytes % 3.7 L D Monocytes % 1.5 L D Chloride 108 H Carbon Dioxide 19 L D BUN 38 H D Creatinine 1.7 H D Random Glucose 257 H D Lactic Acid 3.520 H* Total Protein 6.0 L Albumin 2.9 L Urine Protein Urine Glucose (UA) 02/17/17 15:31 RBC Hgb Hct MCHC RDW Neutrophils % Lymphocytes % Monocytes % Chloride Carbon Dioxide BUN Creatinine Random Glucose Lactic Acid Total Protein Albumin Urine Protein 2+ H Urine Glucose (UA) 3+ H Imaging - Results Chest X-ray: Report Reviewed, Image Reviewed Assessment/Plan Pt is a 71yr old man with PMHx of pancreatic cancer (diagnosed 09/16) now s/p whipple procedure, HTN, HLD, DM, hypothyroidism in setting of thyroid resection , DVT and GIB, recent c. diff. Now in the ICU for management of sepsis, likely abdominal source and ANIYAH. Pulm: Congestive changes in second chest xray (my read) previously clear -O2 support prn for sat >94% -Incentive spirometer -Nebulizers prn -f/u repeat chest xray and abg in am ID: Septic -f/u cultures -Consult -Pt started on Vanc/Zosyn, will add Flagyl pending ab/pel CT -Lactic acidosis resolving GI -Consult -Ab/Pel CT (unable to give contrast due to ANIYAH) Renal: ANIYAH AEB BUN/Cr 38/1.7 (was 14/0.7 in December) and urine with +protein and glucose -IVF as tolerated -Replete electrolytes prn -Strict I/Os Cardio -f/u enzymes -Continue Levophed for MAP 65-75 Endo: -BGM -Glycemic control -Continue home synthroid Neuro -Pain management (opioid allergy) Prophylactic -DVT (hx of DVT) -Continue home florastor -Continue home PPI
[2017-02-17] MEDS ORDERED: METRONIDAZOLE 500 MG PREMIXED 100 ML IVPB ONE (20:49)
[2017-02-17 21:35] LABS: MCH 28.6 pg (25.7-33.7); MCHC 31.8 g/dl (32.0-35.9); MEAN CELL VOLUME 89.8 fl (80-96); MEAN PLT VOLUME 7.7 fl (7.5-11.1); PLATELET COUNT 288 K/MM3 (134-434); RDW 16.9 % (11.9-15.9); WHITE BLOOD COUNT 24.1 K/mm3 (4.0-10.0)
[2017-02-17] MEDS ORDERED: PIPERACILLIN/TAZOB 3.375 GM/50 ML PRE-DOCKED IVPB ONE (22:00)
[2017-02-17] MEDS ORDERED: HEPARIN NA (PORCINE) 5,000 UNITS/ML 1ML VIAL SQ SCH (22:00)
[2017-02-17 22:01] LABS: ALBUMIN 2.4 g/dl (3.4-5.0); BILIRUBIN,TOTAL 0.3 mg/dL (0.2-1.0); CALCIUM 7.1 mg/dL (8.5-10.1); CREATININE 1.6 mg/dL (0.7-1.3); MAGNESIUM 1.3 mg/dL (1.8-2.4); PHOSPHOROUS 2.1 mg/dL (2.5-4.9); TOT PROT 5.4 g/dl (6.4-8.2)
[2017-02-17 22:06] LABS: METAMYELOCYTE 4 % (0-2); PLATELET ESTIMATE ADEQUATE (NORMAL)
[2017-02-17 22:07] LABS: TOXIC GRANULATION 1+
[2017-02-17 22:09] LABS: TROPONIN I 0.12 ng/ml (0.00-0.05)
[2017-02-17] MEDS ORDERED: PIPERACILLIN/TAZOB 3.375 GM/50 ML PRE-DOCKED IVPB SCH (22:15)
[2017-02-17] MEDS ORDERED: SODIUM PHOSPHATE - 15 MM in DEXTROSE 5%-WATER - 250 ML IVPB ONE (22:18)
[2017-02-17] MEDS ORDERED: MAGNESIUM SULF 50% (8.12 MEQ/2 ML-1 GM VIAL) IVPB ONE (22:18)
[2017-02-17 23:01] LABS: AMYLASE 30 U/L (25-115)
[2017-02-17] MEDS: MUPIROCIN 2% TOPICAL OINTMENT FOR DECOLONIZATION NS SCH (23:31)
[2017-02-17] MEDS: ENOXAPARIN NA (PORCINE) 120 MG/0.8 ML DISP.SYRIN SQ SCH (23:32)
[2017-02-17] MEDS: CHLORHEXIDINE GLUCONATE 4% CLEANSER FOR DECOLONIZATION TP SCH (23:32)
[2017-02-17] MEDS: INSULIN SLIDING SCALE (NOVOLOG) 1 VIAL SQ SCH (23:33)
[2017-02-18] MEDS ORDERED: ACETAMINOPHEN 1000 MG/100 ML VIAL (NON FORMULARY) IVPB ONE (00:56)
[2017-02-18] MEDS ORDERED: VASOPRESSIN 50 UNITS in SODIUM CHLORIDE 97.5 ML IVPB SCH ×2 (01:00→01:04)
[2017-02-18] MEDS: VASOPRESSIN 50 UNITS in SODIUM CHLORIDE 97.5 ML IVPB SCH (01:18)
[2017-02-18] MEDS ORDERED: PIPERACILLIN/TAZOB 3.375 GM 50 ML IVPB ONE (03:41)
[2017-02-18] MEDS: SODIUM CHLORIDE 1,000 ML IV SCH ×2 (03:47→18:51)
[2017-02-18] MEDS ORDERED: NOREPINEPHRINE BITARTRATE 4 MG/4 ML ML IV ONE ×5 (03:49→23:46)
[2017-02-18] MEDS ORDERED: METRONIDAZOLE 500 MG PREMIXED 100 ML IVPB SCH (04:00)
[2017-02-18 05:55] LABS: MCH 28.3 pg (25.7-33.7); MCHC 31.7 g/dl (32.0-35.9); MEAN CELL VOLUME 89.4 fl (80-96); MEAN PLT VOLUME 7.9 fl (7.5-11.1); PLATELET COUNT 275 K/MM3 (134-434); RDW 17.2 % (11.9-15.9)
[2017-02-18] MEDS: INSULIN SLIDING SCALE (NOVOLOG) 1 VIAL SQ SCH ×4 (05:59→21:51)
[2017-02-18] MEDS: LEVOTHYROXINE 100 MCG, LEVOTHYROXINE 75 MCG PO SCH (05:59)
[2017-02-18] MEDS ORDERED: VANCOMYCIN 250 MG/5 ML ORAL SOLUTION PO ONE (06:00)
[2017-02-18] MEDS ORDERED: PIPERACILLIN/TAZOB 3.375 GM/50 ML PRE-DOCKED IVPB ONE (06:00)
[2017-02-18] MEDS ORDERED: VANCOMYCIN 250 MG/5 ML ORAL SOLUTION PO SCH (06:00)
[2017-02-18] MEDS: NOREPINEPHRINE BITARTRATE 8,000 MCG in SODIUM CHLORIDE 0.45% 992 ML IV SCH ×3 (06:00→23:49)
[2017-02-18 06:05] LABS: WHITE BLOOD COUNT 34.1 K/mm3 (4.0-10.0)
[2017-02-18 06:11] LABS: INR 1.14 (0.82-1.09); PROTHROMBIN TIME (PATIENT) 12.6 SEC (9.98-11.88)
[2017-02-18 06:19] LABS: ALBUMIN 2.4 g/dl (3.4-5.0); CALCIUM 7.1 mg/dL (8.5-10.1); CREATININE 1.8 mg/dL (0.7-1.3); MAGNESIUM 1.7 mg/dL (1.8-2.4); PHOSPHOROUS 2.9 mg/dL (2.5-4.9)
[2017-02-18 06:22] LABS: BILIRUBIN,TOTAL 0.4 mg/dL (0.2-1.0); TOT PROT 5.3 g/dl (6.4-8.2)
[2017-02-18 06:25] LABS: TROPONIN I 0.11 ng/ml (0.00-0.05)
[2017-02-18] MEDS ORDERED: LEVOTHYROXINE NA 175 MCG TABLET PO SCH (07:00)
--- NOTE | 2017-02-18 07:35 | PN ---
Physical Exam: SUBJECTIVE: Patient seen and examined at bed side in ICU. patietn feels better than yesterday. remains febrile, hypotensive, tachpnic, leukcocytosis wbc 34K. patient reports left side body and abdomen soreness s/p falling on his Left side of body with out hitting his head or LOC two days ago (fracturing his Left 2nd metatarsal) Discussed case with patient oncologist Dr. Saurabh Luque [phone], reports patient had several imaging of gall bladder in the past and reports looking necrotic and suggest possible source of this septic infection. reports will accept patient if deemed necessary by family and [facility], currently can continue current medical therapy with fluids and antibiotics, if patient stability worsens would like to transfer to [place]. He will touch base and discus case with patient surgeon who is very familiar with patient and will reassess patient for transfer if deemed necessary. OBJECTIVE: Vital Signs Period Temp Pulse Resp BP Sys/Pate Pulse Ox Last 24 Hr 99 F-103 F 81-96 14-26 73-111/46-68 98 GENERAL: The patient is awake, alert, and fully oriented, in no acute distress. HEAD: Normal with no signs of trauma. EYES: PERRL, extraocular movements intact, sclera anicteric, conjunctiva clear. No ptosis. ENT: Ears normal, nares patent, oropharynx clear without exudates, Dry mucous membranes membranes. NECK: Trachea midline, full range of motion, supple. LUNGS: Breath sounds equal, scattered basilar rhonchi, right chest annette cath HEART: Regular rate and rhythm, S1, S2 without murmur, rub or gallop. ABDOMEN: Soft, nontender, nondistended, hypoactive bowel sounds, no guarding, no rebound, no hepatosplenomegaly, no masses. EXTREMITIES: 2+ pulses, warm, well-perfused, no edema. right hand fracture limited 2nd metatarcel dressing. NEUROLOGICAL: Cranial nerves II through XII grossly intact. Normal speech, gait not observed. PSYCH: Normal mood, normal affect. SKIN: Warm, dry, normal turgor, no rashes or lesions noted Laboratory Results - last 24 hr 02/17/17 02/17/17 02/17/17 18:00 21:20 21:20 WBC 24.1 H D RBC 3.38 L Hgb 9.7 L Hct 30.3 L MCV 89.8 MCHC 31.8 L RDW 16.9 H Plt Count 288 MPV 7.7 Neutrophils % 63.0 D Lymphocytes % 2.0 L D Monocytes % 2.0 L Band Neutrophils 29.0 H D Metamyelocytes 4 H D Differential Comment Manual diff done Toxic Granulation 1+ Platelet Estimate Adequate Morphology Comment Slide scanned INR Sodium 138 Potassium 4.0 Chloride 111 H Carbon Dioxide 17 L Anion Gap 10 BUN 34 H Creatinine 1.6 H Creat Clearance w eGFR 42.58 POC Glucometer Random Glucose 263 H Lactic Acid 1.610 Calcium 7.1 L Phosphorus 2.1 L D Magnesium 1.3 L D Total Bilirubin 0.3 D AST 71 H D ALT 50 D Alkaline Phosphatase 90 D Creatine Kinase Troponin I C-Reactive Protein B-Natriuretic Peptide Total Protein 5.4 L Albumin 2.4 L Total Amylase Lipase 02/17/17 02/17/17 02/17/17 21:20 21:20 21:20 WBC RBC Hgb Hct MCV MCHC RDW Plt Count MPV Neutrophils % Lymphocytes % Monocytes % Band Neutrophils Metamyelocytes Differential Comment Toxic Granulation Platelet Estimate Morphology Comment INR Sodium Potassium Chloride Carbon Dioxide Anion Gap BUN Creatinine Creat Clearance w eGFR POC Glucometer Random Glucose Lactic Acid 2.508 H* Calcium Phosphorus Magnesium Total Bilirubin AST ALT Alkaline Phosphatase Creatine Kinase 48 Troponin I 0.12 H D C-Reactive Protein B-Natriuretic Peptide 2855.88 H Total Protein Albumin Total Amylase 30 Lipase 76 02/17/17 02/17/17 02/18/17 21:20 23:32 05:00 WBC 34.1 H* D RBC 3.39 L Hgb 9.6 L Hct 30.3 L MCV 89.4 MCHC 31.7 L RDW 17.2 H Plt Count 275 MPV 7.9 Neutrophils % Y Lymphocytes % Y Monocytes % Band Neutrophils Metamyelocytes Differential Comment Toxic Granulation Platelet Estimate Morphology Comment INR Sodium Potassium Chloride Carbon Dioxide Anion Gap BUN Creatinine Creat Clearance w eGFR POC Glucometer [phone] Random Glucose Lactic Acid Calcium Phosphorus Magnesium Total Bilirubin AST ALT Alkaline Phosphatase Creatine Kinase Troponin I C-Reactive Protein 8.0 H B-Natriuretic Peptide Total Protein Albumin Total Amylase Lipase 02/18/17 02/18/17 02/18/17 05:00 05:00 05:00 WBC RBC Hgb Hct MCV MCHC RDW Plt Count MPV Neutrophils % Lymphocytes % Monocytes % Band Neutrophils Metamyelocytes Differential Comment Toxic Granulation Platelet Estimate Morphology Comment INR 1.14 Sodium 139 Potassium 4.0 Chloride 110 H Carbon Dioxide 16 L Anion Gap 13 BUN 35 H Creatinine 1.8 H Creat Clearance w eGFR 37.17 POC Glucometer Random Glucose 162 H D Lactic Acid Calcium 7.1 L Phosphorus 2.9 D Magnesium 1.7 L D Total Bilirubin 0.4 D AST 169 H D ALT 98 H D Alkaline Phosphatase 89 Creatine Kinase 52 Troponin I 0.11 H C-Reactive Protein B-Natriuretic Peptide Total Protein 5.3 L Albumin 2.4 L Total Amylase 28 Lipase 47 L 02/18/17 05:45 WBC RBC Hgb Hct MCV MCHC RDW Plt Count MPV Neutrophils % Lymphocytes % Monocytes % Band Neutrophils Metamyelocytes Differential Comment Toxic Granulation Platelet Estimate Morphology Comment INR Sodium Potassium Chloride Carbon Dioxide Anion Gap BUN Creatinine Creat Clearance w eGFR POC Glucometer [phone] Random Glucose Lactic Acid Calcium Phosphorus Magnesium Total Bilirubin AST ALT Alkaline Phosphatase Creatine Kinase Troponin I C-Reactive Protein B-Natriuretic Peptide Total Protein Albumin Total Amylase Lipase Active Medications Generic Name Dose Route Start Last Admin Trade Name Freq PRN Reason Stop Dose Admin Acetaminophen 650 mg 02/17/17 18:22 Tylenol - PO Q6H PRN FEVER OR PAIN Chlorhexidine Gluconate 1 applic 02/17/17 22:00 02/17/17 23:32 Hibiclens For Decolonization - TP 1 applic HS JOE Administration Enoxaparin Sodium 120 mg 02/17/17 22:00 02/17/17 23:32 Lovenox - SQ 120 mg HS JOE Administration Norepinephrine Bitartrate 8, 1,000 mls @ 37.5 mls/hr 02/17/17 15:30 02/18/17 06 :00 000 mcg/ Sodium Chloride IV 187.5 mls/hr TITR JOE Administration Protocol 5 MCG/MIN Sodium Chloride 1,000 mls @ 100 mls/hr 02/17/17 18:30 02/18/17 03:47 Normal Saline - IV 100 mls/hr ASDIR JOE Administration Metronidazole 100 mls @ 100 mls/hr 02/18/17 04:00 02/18/17 03:45 Flagyl 500mg Premixed Ivpb - IVPB 100 mls/hr Q6HPO JOE Administration Vasopressin 50 units/ Sodium 100 mls @ 6 mls/hr 02/19/17 01:04 02/18/17 01:18 Chloride IVPB 6 mls/hr TITR JOE Administration 3 UNITS/HR Insulin Aspart 1 vial 02/17/17 22:00 02/18/17 05:59 Novolog Vial Sliding Scale - SQ Not Given ACHS [facility] Protocol Levothyroxine Sodium 100 mcg/ 175 mcg 02/18/17 07:00 02/18/17 05:59 Levothyroxine Sodium 75 mcg PO 175 mcg DAILY@0700 JOE Administration Mupirocin 1 applic 02/17/17 22:00 02/17/17 23:31 Bactroban Ointment (For Decolonization) - NS 02/22/17 21:59 1 applic BID JOE Administration Ondansetron HCl 4 mg 02/17/17 18:22 Zofran Injection IVPB Q6H PRN NAUSEA Oxycodone HCl 5 mg 02/17/17 18:22 Roxicodone - PO Q6H PRN PAIN Pantoprazole Sodium 40 mg 02/18/17 10:00 Protonix - PO DAILY JOE Vancomycin HCl 125 mg 02/18/17 06:00 Vancomycin Oral Solution PO Q6HPO [facility] CXR:Chest: Vascular congestion Since 02/17/2017, again noted congestive changes with right port, degenerative findings and sharp angles. The mediastinum is unchanged. Correlation recommended. Impression : No significant change since prior study. CT ABD:Comparison: Ultrasound 08/18/2016. Contiguous transaxial images were obtained from the diaphragmatic domes and pubic symphysis without the administration of oral and IV contrast. Study is limited due to patient condition including inability to elevate the arms above the head. Lung bases: Bibasilar effusions with compressive atelectasis/consolidation. Bone: Negative. Liver: Negative. There is a small amount of perihepatic fluid. Embolization coils are noted in the region of the right hepatic artery. Gallbladder: The gallbladder is distended with stones. Question of superimposed cholecystitis, possibly related to the indwelling biliary stent. Biliary tree: Indwelling stent. Spleen: Negative. Pancreas: Status post partial the distal pancreatectomy. Adrenals: Negative. Kidneys: A 19 x 17 2 mm mass arises from the upper pole of the left kidney. There are areas that don't measure the density of simple cysts in this needs to be correlated with a renal ultrasound. Pelvis: There is a Armando catheter and prostatic enlargement. Bowel: Negative. Aorta and IVC: There is a filter in the IVC. Other: Small fat-containing umbilical hernia. Impression: No definitive abscess seen. Abnormal appearance of the gallbladder. Cholecystitis is to be excluded although it may be chronic. There is a biliary stent. Mass arising from the upper pole left kidney for which renal ultrasound is needed. Bibasilar effusions and compressive atelectasis. ASSESSMENT/PLAN: Pt is a 71yr old man with PMHx of pancreatic cancer (diagnosed 09/16) s/p 6 round chemo therapy (last one 3-4 weeks ago), HTN, HLD, DM, hypothyroidism in setting of thyroid resection, DVT and GIB s/p billiary tree stenting, cholithiases , recent c. diff. Now in the ICU for management of septic shock , likely abdominal source from possible gallbladder. Pulm: Congestive changes in second chest xray (my read) previously clear -O2 support prn for sat >94% -Incentive spirometer -Nebulizers prn -f/u repeat chest xray and abg in am ID: Septic shock on Vasopressin and Levophed, with End organ damage(ANIYAH, alctic acid, elev troponin) preliminary Bcx gram neg roni, most likely source gallbladder, secondary hxs diverticulitis, third source from port cath( less likely gram neg rods and no sign of infection) on CT "Question of superimposed cholecystitis, possibly related to the indwelling biliary stent. Biliary tree: Indwelling stent." -f/u cultures -UA WNL -on Vanco IV and PO and zosyn -Lactic acidosis trending down. -IVF to keep CVP 8-12 -Central line for CVP monitoring -titrate pressors to maintain MAP >65 -monitor urine output, creatinine -O2 to keep SpO2 >90% -ID consulted -f/u cultures and stool studies -C diff tox and antigen negative: recent history of C diff infection resistant to flagyl and treated with vanco, and recent use of antibiotics, -influenza A and B negative GI Pancreatic Ca: discussed case with Dr. Luque, will medically optimize if worsen consider transfer to [place]. -antiemetics -pain control -GI Consult -Ab/Pel CT (unable to give contrast due to ANIYAH) -PO as tolerated Renal: prerenal azotemia 2/2 hypo-perfusion due to septic shock, ANIYAH AEB BUN/ Cr 38/1.7 (was 14/0.7 in December) and urine with +protein and glucose ON CT : Kidneys: A 19 x 17 2 mm mass arises from the upper pole of the left kidney. There are areas that don't measure the density of simple cysts in this needs to be correlated with a renal ultrasound -IVF as tolerated -Replete electrolytes prn -Strict I/Os Cardio -f/u enzymes -Continue Levophed for MAP 65-75 -Strict I/O HLD: -not on meds -no issues Hemotology: -h/o DVT s/p IVC filter -continue AC Endo:DM -Hold oral hypoglycemics -ISS -fingersticks ACHS Hypothyroidism: -Continue home synthroid Neuro -Pain management (opioid allergy) Prophylactic -DVT (hx of DVT)- continue Lovenox 120mg hs -Continue home florastor -Continue Protonix -PT consult FEN: NS @ 100ml/hr and boluses PRN no electrolyte issues, monitor and replete as needed low fat diet Visit type - Emergency Visit Emergency Visit: Yes ED Registration Date: 02/17/17 Care time: The patient presented to the Emergency Department on the above date and was hospitalized for further evaluation of their emergent condition. - New Patient This patient is new to me today: No - Critical Care Critical Care patient: Yes Total Critical Care Time (in minutes): 45 Critical Care Statement: The care of this patient involved high complexity decision making to prevent further life threatening deterioration of the patient 's condition and/or to evalute & treat vital organ system(s) failure or risk of failure.
[2017-02-18] MEDS ORDERED: MAGNESIUM SULF 50% (8.12 MEQ/2 ML-1 GM VIAL) IVPB ONE (08:30)
[2017-02-18 08:36] LABS: METAMYELOCYTE 3 % (0-2)
--- NOTE | 2017-02-18 09:06 | PN ---
Progress Note, Physician Chief Complaint: ID Full note dictated Describes rigors yesterday with abd pains Nurses report diarrhea constantly here. Chemotherapy Cycle 6 last 3 weeks ago. Was to start radiation therapy at [facility]. - Current Medication List Current Medications: Active Medications Acetaminophen (Tylenol -) 650 mg PO Q6H PRN PRN Reason: FEVER OR PAIN Chlorhexidine Gluconate (Hibiclens For Decolonization -) 1 applic TP HS [facility] Last Admin: 02/17/17 23:32 Dose: 1 applic Enoxaparin Sodium (Lovenox -) 120 mg SQ HS [facility] Last Admin: 02/17/17 23:32 Dose: 120 mg Norepinephrine Bitartrate 8, (000 mcg/ Sodium Chloride) 1,000 mls @ 37.5 mls/ hr IV TITR JOE; 5 MCG/MIN PRN Reason: Protocol Last Admin: 02/18/17 06:00 Dose: 187.5 mls/hr Sodium Chloride (Normal Saline -) 1,000 mls @ 100 mls/hr IV ASDIR [facility] Last Admin: 02/18/17 03:47 Dose: 100 mls/hr Metronidazole (Flagyl 500mg Premixed Ivpb -) 100 mls @ 100 mls/hr IVPB Q6HPO [facility] Last Admin: 02/18/17 03:45 Dose: 100 mls/hr Vasopressin 50 units/ Sodium (Chloride) 100 mls @ 6 mls/hr IVPB TITR JOE PRN Reason: 3 UNITS/HR Last Admin: 02/18/17 01:18 Dose: 6 mls/hr Insulin Aspart (Novolog Vial Sliding Scale -) 1 vial SQ ACHS JOE PRN Reason: Protocol Last Admin: 02/18/17 05:59 Dose: Not Given Levothyroxine Sodium 100 mcg/ (Levothyroxine Sodium 75 mcg) 175 mcg PO DAILY@ 0700 [facility] Last Admin: 02/18/17 05:59 Dose: 175 mcg Mupirocin (Bactroban Ointment (For Decolonization) -) 1 applic NS BID [facility] Stop: 02/22/17 21:59 Last Admin: 02/17/17 23:31 Dose: 1 applic Ondansetron HCl (Zofran Injection) 4 mg IVPB Q6H PRN PRN Reason: NAUSEA Oxycodone HCl (Roxicodone -) 5 mg PO Q6H PRN PRN Reason: PAIN Pantoprazole Sodium (Protonix -) 40 mg PO DAILY JOE Vancomycin HCl (Vancomycin Oral Solution) 125 mg PO Q6HPO JOE - Objective Vital Signs: Vital Signs Temperature 102.1 F H 02/18/17 06:30 Pulse Rate 82 02/18/17 08:46 Respiratory Rate 14 02/18/17 08:46 Blood Pressure 107/69 02/18/17 08:46 O2 Sat by Pulse Oximetry (%) 98 02/17/17 22:00 Constitutional: Yes: Well Nourished, No Distress Eyes: Yes: WNL, Conjunctiva Clear, EOM Intact HENT: Yes: WNL, Atraumatic, Normocephalic Neck: Yes: WNL, Supple, Trachea Midline Cardiovascular: Yes: Regular Rate and Rhythm, S1, S2. No: Murmur Respiratory: Yes: Regular, CTA Bilaterally. No: Rales, Rhonchi Gastrointestinal: Yes: WNL, Normal Bowel Sounds, Soft. No: Tenderness, Tenderness, Rebound Edema: No Labs: CBC, BMP 02/18/17 05:00 02/18/17 05:00 INR, PTT INR 1.14 (0.82-1.09) 02/18/17 05:00 Assessment/Plan Assessment Sepsis syndrome post chemotherapy 3 weeks ago Recent thrombectomy Ruling out recurrent Clostridium difficile infection Pancreatic cancer Plan Await blood cultures cover staph strep GNB Vancmycin and Zosyn Stool C diff infection and treat accordingly pending toxin Isolate contact C diff ?? Mago SMITH
[2017-02-18] MEDS: PANTOPRAZOLE 40 MG TABLET (FP) PO SCH (09:26)
[2017-02-18] MEDS: PIPERACILLIN/TAZOB 4.5 GM 100 ML IVPB SCH ×2 (09:28→17:24)
[2017-02-18] MEDS: MUPIROCIN 2% TOPICAL OINTMENT FOR DECOLONIZATION NS SCH ×2 (10:08→21:50)
[2017-02-18] MEDS ORDERED: VANCOMYCIN 1,500 MG in DEXTROSE 5%-WATER - 500 ML IVPB ONE (11:00)
[2017-02-18] MEDS: VANCOMYCIN 250 MG/5 ML ORAL SOLUTION PO SCH ×2 (11:28→17:24)
--- NOTE | 2017-02-18 12:38 | PN ---
Teaching Attending Note Name of Resident: Joradna Estrella ATTENDING PHYSICIAN STATEMENT I saw and evaluated the patient. I reviewed the resident's note and discussed the case with the resident. I agree with the resident's findings and plan as documented. SUBJECTIVE: Pt seen and examined in the ICU. Remains febrile on levophed and vasopressin gtts. Denies abdominal pain and soft stools. No shortness of breath, cough, nausea or vomiting. OBJECTIVE: Last Vital Signs Temp Pulse Resp BP Pulse Ox 101 F H 80 14 115/71 100 02/18/17 10:00 02/18/17 12:00 02/18/17 12:00 02/18/17 12:00 02/18/17 10:20 Intake & Output 02/15/17 02/16/17 02/17/17 02/18/17 23:59 23:59 23:59 23:59 Intake Total 400 3792 Output Total 900 200 Balance -500 3592 Weight 195 lb 8 oz 198 lb 8 oz Gen: weak appearing Heart: RRR Lung: scattered basilar rhonchi Abd: soft, nontender Ext: trace edema CBC, BMP 02/18/17 05:00 02/18/17 05:00 Active Medications Acetaminophen (Tylenol -) 650 mg PO Q6H PRN PRN Reason: FEVER OR PAIN Chlorhexidine Gluconate (Hibiclens For Decolonization -) 1 applic TP HS JOE Last Admin: 02/17/17 23:32 Dose: 1 applic Enoxaparin Sodium (Lovenox -) 120 mg SQ HS JOE Last Admin: 02/17/17 23:32 Dose: 120 mg Norepinephrine Bitartrate 8, (000 mcg/ Sodium Chloride) 1,000 mls @ 37.5 mls/ hr IV TITR JOE; 5 MCG/MIN PRN Reason: Protocol Last Admin: 02/18/17 06:00 Dose: 187.5 mls/hr Sodium Chloride (Normal Saline -) 1,000 mls @ 100 mls/hr IV ASDIR JOE Last Admin: 02/18/17 03:47 Dose: 100 mls/hr Vasopressin 50 units/ Sodium (Chloride) 100 mls @ 6 mls/hr IVPB TITR JOE PRN Reason: 3 UNITS/HR Last Admin: 02/18/17 01:18 Dose: 6 mls/hr Vancomycin HCl 1,500 mg/ (Dextrose) 500 mls @ 250 mls/hr IVPB ONCE ONE PRN Reason: Protocol Stop: 02/18/17 12:59 Last Admin: 02/18/17 10:15 Dose: 250 mls/hr Piperacillin Sod/Tazobactam Sod (Zosyn 4.5gm Ivpb (Pre-Docked)) 100 mls @ 200 mls/hr IVPB Q8H-IV JOE PRN Reason: Protocol Last Admin: 02/18/17 09:28 Dose: 200 mls/hr Insulin Aspart (Novolog Vial Sliding Scale -) 1 vial SQ ACHS [facility] PRN Reason: Protocol Last Admin: 02/18/17 10:15 Dose: Not Given Levothyroxine Sodium 100 mcg/ (Levothyroxine Sodium 75 mcg) 175 mcg PO DAILY@ 0700 [facility] Last Admin: 02/18/17 05:59 Dose: 175 mcg Mupirocin (Bactroban Ointment (For Decolonization) -) 1 applic NS BID [facility] Stop: 02/22/17 21:59 Last Admin: 02/18/17 10:08 Dose: 1 applic Ondansetron HCl (Zofran Injection) 4 mg IVPB Q6H PRN PRN Reason: NAUSEA Oxycodone HCl (Roxicodone -) 5 mg PO Q6H PRN PRN Reason: PAIN Pantoprazole Sodium (Protonix -) 40 mg PO DAILY [facility] Last Admin: 02/18/17 09:26 Dose: 40 mg Vancomycin HCl (Vancomycin Oral Solution) 250 mg PO Q6HPO [facility] Last Admin: 02/18/17 11:28 Dose: 250 mg ASSESSMENT AND PLAN: Gram Negative Bacteremia Septic Shock Acute Kidney injury Lactic Acidosis r/o C diff vs Intra-abdominal source Pancreatic Cancer s/p recent chemo HTN DM h/o DVT s/p IVC filter - continue antibiotics - f/u cultures - IVF to keep CVP 8-12 - titrate pressors to maintain MAP >65 - trend lactate - monitor urine output, creatinine - O2 to keep SpO2 >90% - continue anticoagulation - PO as tolerated - DVT/GI prophylaxis CCT 38'
[2017-02-18] MEDS: ACETAMINOPHEN 325 MG TABLET (FP) PO PRN ×2 (12:51→18:50)
--- NOTE | 2017-02-18 15:31 | CONS ---
INFECTIOUS DISEASE CONSULT DATE OF CONSULTATION: DATE OF DICTATION: 02/18/2017 HISTORY OF PRESENT ILLNESS: This is a 71-year-old male with known pancreatic cancer who is admitted with chief complaint of abdominal discomfort, diarrhea and fever with shaking chills at home. Upon his arrival, he was noted to be azotemic with a creatinine of 1.7 and a BUN of 38, lactic acid level of 3.5 and a blood pressure of 88/58. Heart rate 123, respiratory rate 20 and a fever to 102.3. His blood pressure was initially unresponsive to intravenous fluids. Cultures were obtained, and he was empirically given vancomycin, Zosyn and metronidazole. Currently, he is alert, awake and oriented. He is not presently on pressors. He has a history of pancreatic cancer for which he has been evaluated in an ongoing process at [facility]. He had a history of a right lower extremity DVT in December of 2016 and at some point underwent a thrombectomy of the right leg as well as placement of an intravenous filter, which was placed 12/24. He is receiving chemotherapy, on cycle 6, through a chest annette catheter. His last chemotherapy was 3 weeks ago. He was scheduled to get radiation therapy, but as yet this has not been begun. He was admitted to [facility] in December of 2016 with an episode of severe neutropenia following chemotherapy. Cultures obtained at that time were no growth. He denies any shortness of breath, cough, abdominal pain or urinary complaints. PAST MEDICAL HISTORY: Past medical history includes diabetes, hypertension, hypothyroidism with thyroid resection, pancreatic cancer. MEDICATIONS: BuSpar, Invokana, centroid, Prilosec, Actos, Zantac, Florastor, Janumet. ALLERGIES: LISINOPRIL AND OPIOIDS. 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 Pets include 2 cats. No unusual hobbies. FAMILY HISTORY: Reviewed an noncontributory. REVIEW OF SYSTEMS: Respiratory: No shortness of breath, cough, hemoptysis. Cardiac: No chest pain, palpitations, syncope, murmur. GI: Positive abdominal discomfort, watery diarrhea-nonbloody, no vomiting, no nausea, no hematemesis. : No dysuria, hematuria, urinary frequency. PHYSICAL EXAM: General; He was an alert male weighing 198 pounds in no acute distress. Vital signs: The temperature was 102.1, pulse 82, blood pressure 107/69, respirations 14. HEENT: The oropharynx was without exudate or thrush, the neck supple without adenopathy. Chest: Symmetrical with a right [id number] in situ. Lungs: Clear to percussion with bibasilar crackles. Heart: S1, S2/ regular rhythm without audible murmur or gallop. Abdomen: Soft, nontender without hepatosplenomegaly. Extremities: Without clubbing, cyanosis or edema. White count of 34,000, hemoglobin 9.6, platelets of 275. Left shift with 29% bands noted initially. INR 1.14. BUN of 35. Creatinine 1.8. Lactic acid 4.1. AST 169, ALT 98, alkaline phosphatase 89. Troponin 0.1. Urinalysis with 1 RBC, 2 WBCs. ASSESSMENT: 71-year-old male status post chemotherapy 3 weeks ago for pancreatic cancer, presents now with fever, rigors, abdominal discomfort and frequent diarrhea. The patient apparently had a history of prolonged C. difficile infection back in December, diagnosed post discharge from [place] while he was at [facility]. He was treated with 4 weeks of oral metronidazole and had to be switched to oral vancomycin, noting that it took him "a long time to get better." He has not been on antibiotics recently and denies recent hospitalizations. He has not had recurrent bouts of C. difficile since the initial episode. PLAN: The possibility of C. difficile recurrent infection is considered, and he will be treated accordingly. Given the severity of illness, I would elect to put him on oral vancomycin until we get his C. difficile toxin back. That said, he does have a sepsis syndrome, and the possibility of a bacterial blood stream infection in the setting of cancer and recent chemotherapy must be considered. Accordingly, he will given standing doses of vancomycin and Zosyn pending blood and urine cultures. Case was discussed at length with the house staff. TRISTAN DISLA M.D. LAURA/[id number]
[2017-02-18] MEDS ORDERED: VASOPRESSIN 20 UNITS/ML VIAL IV ONE (15:41)
--- NOTE | 2017-02-18 15:52 | PN ---
Physical Exam: SUBJECTIVE: Patient seen and examined at bedside states he feels better than yesterday remains febrile OBJECTIVE: Vital Signs Period Temp Pulse Resp BP Sys/Pate Pulse Ox Last 24 Hr 99 F-103 F 71-96 14-26 73-115/46-71 98-100 GENERAL: Awake, alert, and fully oriented, in no acute distress. Tired appearing HEAD: Normal with no signs of trauma. EYES: Pupils equal, round and reactive to light, extraocular movements intact EARS, NOSE, THROAT:Dry mucous membranes. NECK: Normal range of motion LUNGS: Breath sounds equal, clear to auscultation bilaterally HEART: Regular rate and rhythm, normal S1 and S2 ABDOMEN: Soft, nontender, not distended, hyperactive bowel sound. MUSCULOSKELETAL: No CVA tenderness. LOWER EXTREMITIES: No calf tenderness. NEUROLOGICAL: Cranial nerves II-XII grossly intact. Normal speech. Laboratory Results - last 24 hr 02/17/17 02/17/17 02/17/17 18:00 21:20 21:20 WBC 24.1 H D RBC 3.38 L Hgb 9.7 L Hct 30.3 L MCV 89.8 MCHC 31.8 L RDW 16.9 H Plt Count 288 MPV 7.7 Neutrophils % 63.0 D Lymphocytes % 2.0 L D Monocytes % 2.0 L Band Neutrophils 29.0 H D Metamyelocytes 4 H D Myelocytes Differential Comment Manual diff done Toxic Granulation 1+ Platelet Estimate Adequate Morphology Comment Slide scanned INR Sodium 138 Potassium 4.0 Chloride 111 H Carbon Dioxide 17 L Anion Gap 10 BUN 34 H Creatinine 1.6 H Creat Clearance w eGFR 42.58 POC Glucometer Random Glucose 263 H Lactic Acid 1.610 Calcium 7.1 L Phosphorus 2.1 L D Magnesium 1.3 L D Total Bilirubin 0.3 D AST 71 H D ALT 50 D Alkaline Phosphatase 90 D Creatine Kinase Troponin I C-Reactive Protein B-Natriuretic Peptide Total Protein 5.4 L Albumin 2.4 L Total Amylase Lipase Random Vancomycin 02/17/17 02/17/17 02/17/17 21:20 21:20 21:20 WBC RBC Hgb Hct MCV MCHC RDW Plt Count MPV Neutrophils % Lymphocytes % Monocytes % Band Neutrophils Metamyelocytes Myelocytes Differential Comment Toxic Granulation Platelet Estimate Morphology Comment INR Sodium Potassium Chloride Carbon Dioxide Anion Gap BUN Creatinine Creat Clearance w eGFR POC Glucometer Random Glucose Lactic Acid 2.508 H* Calcium Phosphorus Magnesium Total Bilirubin AST ALT Alkaline Phosphatase Creatine Kinase 48 Troponin I 0.12 H D C-Reactive Protein B-Natriuretic Peptide 2855.88 H Total Protein Albumin Total Amylase 30 Lipase 76 Random Vancomycin 02/17/17 02/17/17 02/18/17 21:20 23:32 05:00 WBC 34.1 H* D RBC 3.39 L Hgb 9.6 L Hct 30.3 L MCV 89.4 MCHC 31.7 L RDW 17.2 H Plt Count 275 MPV 7.9 Neutrophils % 61.0 Lymphocytes % 2.0 L Monocytes % 7.0 D Band Neutrophils 26.0 H Metamyelocytes 3 H D Myelocytes 1 Differential Comment Manual diff done Toxic Granulation Platelet Estimate Morphology Comment INR Sodium Potassium Chloride Carbon Dioxide Anion Gap BUN Creatinine Creat Clearance w eGFR POC Glucometer [phone] Random Glucose Lactic Acid Calcium Phosphorus Magnesium Total Bilirubin AST ALT Alkaline Phosphatase Creatine Kinase Troponin I C-Reactive Protein 8.0 H B-Natriuretic Peptide Total Protein Albumin Total Amylase Lipase Random Vancomycin 02/18/17 02/18/17 02/18/17 05:00 05:00 05:00 WBC RBC Hgb Hct MCV MCHC RDW Plt Count MPV Neutrophils % Lymphocytes % Monocytes % Band Neutrophils Metamyelocytes Myelocytes Differential Comment Toxic Granulation Platelet Estimate Morphology Comment INR 1.14 Sodium 139 Potassium 4.0 Chloride 110 H Carbon Dioxide 16 L Anion Gap 13 BUN 35 H Creatinine 1.8 H Creat Clearance w eGFR 37.17 POC Glucometer Random Glucose 162 H D Lactic Acid 4.120 H* Calcium 7.1 L Phosphorus 2.9 D Magnesium 1.7 L D Total Bilirubin 0.4 D AST 169 H D ALT 98 H D Alkaline Phosphatase 89 Creatine Kinase Troponin I C-Reactive Protein B-Natriuretic Peptide Total Protein 5.3 L Albumin 2.4 L Total Amylase 28 Lipase 47 L Random Vancomycin 02/18/17 02/18/17 02/18/17 05:00 05:00 05:45 WBC RBC Hgb Hct MCV MCHC RDW Plt Count MPV Neutrophils % Lymphocytes % Monocytes % Band Neutrophils Metamyelocytes Myelocytes Differential Comment Toxic Granulation Platelet Estimate Morphology Comment INR Sodium Potassium Chloride Carbon Dioxide Anion Gap BUN Creatinine Creat Clearance w eGFR POC Glucometer [phone] Random Glucose Lactic Acid Calcium Phosphorus Magnesium Total Bilirubin AST ALT Alkaline Phosphatase Creatine Kinase 52 Troponin I 0.11 H C-Reactive Protein B-Natriuretic Peptide Total Protein Albumin Total Amylase Lipase Random Vancomycin 6.937 02/18/17 10:13 WBC RBC Hgb Hct MCV MCHC RDW Plt Count MPV Neutrophils % Lymphocytes % Monocytes % Band Neutrophils Metamyelocytes Myelocytes Differential Comment Toxic Granulation Platelet Estimate Morphology Comment INR Sodium Potassium Chloride Carbon Dioxide Anion Gap BUN Creatinine Creat Clearance w eGFR POC Glucometer [phone] Random Glucose Lactic Acid Calcium Phosphorus Magnesium Total Bilirubin AST ALT Alkaline Phosphatase Creatine Kinase Troponin I C-Reactive Protein B-Natriuretic Peptide Total Protein Albumin Total Amylase Lipase Random Vancomycin Active Medications Generic Name Dose Route Start Last Admin Trade Name Freq PRN Reason Stop Dose Admin Acetaminophen 650 mg 02/17/17 18:22 02/18/17 12:51 Tylenol - PO 650 mg Q6H PRN Administration FEVER OR PAIN Chlorhexidine Gluconate 1 applic 02/17/17 22:00 02/17/17 23:32 Hibiclens For Decolonization - TP 1 applic HS JOE Administration Enoxaparin Sodium 120 mg 02/17/17 22:00 02/17/17 23:32 Lovenox - SQ 120 mg HS JOE Administration Norepinephrine Bitartrate 8, 1,000 mls @ 37.5 mls/hr 02/17/17 15:30 02/18/17 15 :49 000 mcg/ Sodium Chloride IV 187.5 mls/hr TITR JOE Administration Protocol 5 MCG/MIN Sodium Chloride 1,000 mls @ 100 mls/hr 02/17/17 18:30 02/18/17 03:47 Normal Saline - IV 100 mls/hr ASDIR JOE Administration Vasopressin 50 units/ Sodium 100 mls @ 6 mls/hr 02/19/17 01:04 02/18/17 01:18 Chloride IVPB 6 mls/hr TITR JOE Administration 3 UNITS/HR Piperacillin Sod/Tazobactam Sod 100 mls @ 200 mls/hr 02/18/17 10:00 02/18/17 09 :28 Zosyn 4.5gm Ivpb (Pre-Docked) IVPB 200 mls/hr Q8H-IV JOE Administration Protocol Insulin Aspart 1 vial 02/17/17 22:00 02/18/17 10:15 Novolog Vial Sliding Scale - SQ Not Given ACHS JOE Protocol Levothyroxine Sodium 100 mcg/ 175 mcg 02/18/17 07:00 02/18/17 05:59 Levothyroxine Sodium 75 mcg PO 175 mcg DAILY@0700 JOE Administration Mupirocin 1 applic 02/17/17 22:00 02/18/17 10:08 Bactroban Ointment (For Decolonization) - NS 02/22/17 21:59 1 applic BID JOE Administration Ondansetron HCl 4 mg 02/17/17 18:22 Zofran Injection IVPB Q6H PRN NAUSEA Oxycodone HCl 5 mg 02/17/17 18:22 Roxicodone - PO Q6H PRN PAIN Pantoprazole Sodium 40 mg 02/18/17 10:00 02/18/17 09:26 Protonix - PO 40 mg DAILY JOE Administration Vancomycin HCl 250 mg 02/18/17 12:00 02/18/17 11:28 Vancomycin Oral Solution PO 250 mg Q6HPO JOE Administration ASSESSMENT/PLAN: 71M with an extensive PMH presents to the ED with septic shock and diarrhea: Septic shock: patient is febrile tachycardic and hypotensive. Despite fluid resuscitation he remains hypotensive. Also has evidence of end organ damage as evidenced by ANIYAH. sepsis syndrome ID consult appreciated on Vanco IV and PO and zosyn Possible gram negative bacteremia after speaking to lab although official results pending Central line for CVP monitoring Levophed to keep MAP >65 IVF pain control f/u cultures and stool studies UA WNL Strict I/O tylenol PRN fever antiemetics History of DVT: continue lovenox 120mg hs s/p IVC filter Pancreatic Ca: outpatient follow up with Dr. Luque Hypothyroidism: continue synthroid 175mcg Qam DM: Hold oral hypoglycemics ISS fingersticks ACHS HLD: not on meds no issues FEN: NS @ 100ml/hr and boluses PRN no electrolyte issues low fat diet PPx: Lovenox therapeutic dosing Protonix PT consult Visit type - Emergency Visit Emergency Visit: Yes ED Registration Date: 02/17/17 Care time: The patient presented to the Emergency Department on the above date and was hospitalized for further evaluation of their emergent condition. - New Patient This patient is new to me today: No - Critical Care Critical Care patient: Yes Total Critical Care Time (in minutes): 42 Critical Care Statement: The care of this patient involved high complexity decision making to prevent further life threatening deterioration of the patient 's condition and/or to evalute & treat vital organ system(s) failure or risk of failure.
--- NOTE | 2017-02-18 16:14 | PN ---
Teaching Attending Note Name of Resident: Kevin Katz ATTENDING PHYSICIAN STATEMENT I saw and evaluated the patient. I reviewed the resident's note and discussed the case with the resident. I agree with the resident's findings and plan as documented. Patient feels better Vital Signs Temperature 100.7 F H 02/18/17 14:00 Pulse Rate 71 02/18/17 15:49 Respiratory Rate 16 02/18/17 14:00 Blood Pressure 96/63 02/18/17 15:49 O2 Sat by Pulse Oximetry (%) 100 02/18/17 10:20 CBCD WBC 34.1 K/mm3 (4.0-10.0) H* D 02/18/17 05:00 RBC 3.39 M/mm3 (4.00-5.60) L 02/18/17 05:00 Hgb 9.6 GM/dL (11.7-16.9) L 02/18/17 05:00 Hct 30.3 % (35.4-49) L 02/18/17 05:00 MCV 89.4 fl (80-96) 02/18/17 05:00 MCHC 31.7 g/dl (32.0-35.9) L 02/18/17 05:00 RDW 17.2 % (11.9-15.9) H 02/18/17 05:00 Plt Count 275 K/MM3 (134-434) 02/18/17 05:00 MPV 7.9 fl (7.5-11.1) 02/18/17 05:00 CMP Sodium 139 mmol/L (136-145) 02/18/17 05:00 Potassium 4.0 mmol/L (3.5-5.1) 02/18/17 05:00 Chloride 110 mmol/L (98-107) H 02/18/17 05:00 Carbon Dioxide 16 mmol/L (21-32) L 02/18/17 05:00 Anion Gap 13 (8-16) 02/18/17 05:00 BUN 35 mg/dL (7-18) H 02/18/17 05:00 Creatinine 1.8 mg/dL (0.7-1.3) H 02/18/17 05:00 Creat Clearance w eGFR 37.17 (>60) 02/18/17 05:00 Random Glucose 162 mg/dL (74-106) H D 02/18/17 05:00 Calcium 7.1 mg/dL (8.5-10.1) L 02/18/17 05:00 Total Bilirubin 0.4 mg/dL (0.2-1.0) D 02/18/17 05:00 AST 169 U/L (15-37) H D 02/18/17 05:00 ALT 98 U/L (12-78) H D 02/18/17 05:00 Alkaline Phosphatase 89 U/L (45-117) 02/18/17 05:00 Total Protein 5.3 g/dl (6.4-8.2) L 02/18/17 05:00 Albumin 2.4 g/dl (3.4-5.0) L 02/18/17 05:00 CARDIAC ENZYMES Creatine Kinase 52 IU/L (39-308) 02/18/17 05:00 Troponin I 0.11 ng/ml (0.00-0.05) H 02/18/17 05:00 Current Medications Generic Name Dose Route Start Last Admin Trade Name Freq PRN Reason Stop Dose Admin Acetaminophen 650 mg 02/17/17 18:22 02/18/17 12:51 Tylenol - PO 650 mg Q6H PRN Administration FEVER OR PAIN Chlorhexidine Gluconate 1 applic 02/17/17 22:00 02/17/17 23:32 Hibiclens For Decolonization - TP 1 applic HS JOE Administration Enoxaparin Sodium 120 mg 02/17/17 22:00 02/17/17 23:32 Lovenox - SQ 120 mg HS JOE Administration Norepinephrine Bitartrate 8, 1,000 mls @ 37.5 mls/hr 02/17/17 15:30 02/18/17 15 :49 000 mcg/ Sodium Chloride IV 187.5 mls/hr TITR JOE Administration Protocol 5 MCG/MIN Sodium Chloride 1,000 mls @ 100 mls/hr 02/17/17 18:30 02/18/17 03:47 Normal Saline - IV 100 mls/hr ASDIR JOE Administration Vasopressin 50 units/ Sodium 100 mls @ 6 mls/hr 02/19/17 01:04 02/18/17 01:18 Chloride IVPB 6 mls/hr TITR JOE Administration 3 UNITS/HR Piperacillin Sod/Tazobactam Sod 100 mls @ 200 mls/hr 02/18/17 10:00 02/18/17 09 :28 Zosyn 4.5gm Ivpb (Pre-Docked) IVPB 200 mls/hr Q8H-IV JOE Administration Protocol Insulin Aspart 1 vial 02/17/17 22:00 02/18/17 10:15 Novolog Vial Sliding Scale - SQ Not Given ACHS [facility] Protocol Levothyroxine Sodium 100 mcg/ 175 mcg 02/18/17 07:00 02/18/17 05:59 Levothyroxine Sodium 75 mcg PO 175 mcg DAILY@0700 JOE Administration Mupirocin 1 applic 02/17/17 22:00 02/18/17 10:08 Bactroban Ointment (For Decolonization) - NS 02/22/17 21:59 1 applic BID JOE Administration Ondansetron HCl 4 mg 02/17/17 18:22 Zofran Injection IVPB Q6H PRN NAUSEA Oxycodone HCl 5 mg 02/17/17 18:22 Roxicodone - PO Q6H PRN PAIN Pantoprazole Sodium 40 mg 02/18/17 10:00 02/18/17 09:26 Protonix - PO 40 mg DAILY JOE Administration Vancomycin HCl 250 mg 02/18/17 12:00 02/18/17 11:28 Vancomycin Oral Solution PO 250 mg Q6HPO JOE Administration Home Medications Medication Instructions Recorded Buspirone HCl [Buspar -] 5 mg PO ONCE 12/23/16 Canagliflozin [Invokana] 300 mg PO DAILY 12/23/16 Levothyroxine [Synthroid -] 175 mcg PO DAILY 12/23/16 Lisdexamfetamine Dimesylate 30 mg PO DAILY 12/23/16 [Vyvanse] Omeprazole Magnesium [Prilosec] 40 mg PO DAILY 12/23/16 Pioglitazone HCl [Actos] 30 mg PO DAILY 12/23/16 Ranitidine HCl [Zantac] 150 mg PO DAILY 12/23/16 Saccharomyces Boulardii [Florastor] 0 mg PO BID 12/23/16 Sitagliptin Phos/Metformin HCl 1 each PO BID 12/23/16 [Janumet 50-1,000 mg Tablet] Amoxicillin/Potassium Clav 1 each PO BID #8 tablet 12/25/16 [Augmentin 500-125 Tablet] Enoxaparin [Lovenox -] 80 mg SQ Q12H #60 disp.syrin 12/25/16 ASSESSMENT AND PLAN: 71M with an extensive PMH presents to the ED with septic shock and diarrhea: # Septic shock: On Vasepressin continue, ID consult appreciated on Vanco IV and PO and zosyn # gram negative bacteremia after speaking to lab although official results pending f/u cultures and stool studies tylenol PRN fever, antiemetics #Hx of DVT: continue lovenox 120mg hs ; s/p IVC filter #Pancreatic Ca: outpatient follow up with Dr. Luque #Hypothyroidism: continue synthroid 175mcg Qam #DM:Hold oral hypoglycemics; ISS #HLD: not on meds,no issues PPx: Protonix DvT Px: Lovenox therapeutic dosing PT consult
[2017-02-18 17:16] LABS: ARTERIAL BLOOD GAS PO2 83.1 mmHg (70-100); ARTERIAL BLOOD GAS pH 7.33 (7.35-7.45)
[2017-02-18 17:17] LABS: ALLENS TEST POSITIVE; ART PUNCT SITE LEFT RADIAL; ARTERIAL BLD GAS O2 SATURATION 94.2 % (90-98.9); ARTERIAL BLOOD GAS BASE EXCESS -10.7 meq/l (-2-2); ARTERIAL BLOOD GAS HCO3 13.7 meq/L (22-26); LPM/O2% 5L; PT. ON O2? YES; TYPE OF O2 NASAL
[2017-02-18] MEDS ORDERED: LORazepam 0.5 MG TABLET PO ONE ×2 (20:57→21:30)
[2017-02-18] MEDS ORDERED: LORazepam 0.5 MG TABLET ONE (21:44)
[2017-02-18] MEDS: CHLORHEXIDINE GLUCONATE 4% CLEANSER FOR DECOLONIZATION TP SCH (21:50)
[2017-02-18] MEDS: ENOXAPARIN NA (PORCINE) 120 MG/0.8 ML DISP.SYRIN SQ SCH (21:50)
[2017-02-19] MEDS: ACETAMINOPHEN 325 MG TABLET (FP) PO PRN ×2 (02:30→21:32)
[2017-02-19] MEDS: PIPERACILLIN/TAZOB 4.5 GM 100 ML IVPB SCH ×3 (02:31→16:59)
[2017-02-19] MEDS: VASOPRESSIN 50 UNITS in SODIUM CHLORIDE 97.5 ML IVPB SCH (02:36)
[2017-02-19] MEDS: SODIUM CHLORIDE 1,000 ML IV SCH ×2 (02:39→21:10)
[2017-02-19] MEDS: oxyCODONE HCL 5 MG TABLET PO PRN ×2 (02:58→23:40)
[2017-02-19] MEDS: VANCOMYCIN 250 MG/5 ML ORAL SOLUTION PO SCH ×5 (05:26→23:41)
[2017-02-19] MEDS ORDERED: LEVOTHYROXINE NA 100 MCG TABLET (FP) ONE (05:57)
[2017-02-19] MEDS ORDERED: LEVOTHYROXINE NA 75 MCG TABLET (FP) ONE (05:57)
[2017-02-19] MEDS: LEVOTHYROXINE 100 MCG, LEVOTHYROXINE 75 MCG PO SCH (05:59)
[2017-02-19] MEDS: INSULIN SLIDING SCALE (NOVOLOG) 1 VIAL SQ SCH ×4 (06:00→21:40)
[2017-02-19 06:20] LABS: MCH 28.7 pg (25.7-33.7); MCHC 32.2 g/dl (32.0-35.9); MEAN CELL VOLUME 89.4 fl (80-96); MEAN PLT VOLUME 8.8 fl (7.5-11.1); PLATELET COUNT 231 K/MM3 (134-434); RDW 17.7 % (11.9-15.9)
[2017-02-19 06:38] LABS: WHITE BLOOD COUNT 32.9 K/mm3 (4.0-10.0)
[2017-02-19 06:39] LABS: INR 1.18 (0.82-1.09)
[2017-02-19 06:41] LABS: ACTIVATED PTT 44.3 SECONDS (26.9-34.4)
[2017-02-19 06:45] LABS: ALBUMIN 2.2 g/dl (3.4-5.0); CALCIUM 6.9 mg/dL (8.5-10.1); MAGNESIUM 2.2 mg/dL (1.8-2.4)
[2017-02-19 06:50] LABS: BILIRUBIN,TOTAL 0.5 mg/dL (0.2-1.0); CREATININE 1.2 mg/dL (0.7-1.3); PHOSPHOROUS 3.2 mg/dL (2.5-4.9); TOT PROT 5.1 g/dl (6.4-8.2)
--- NOTE | 2017-02-19 07:50 | PN ---
Physical Exam: SUBJECTIVE: Patient seen and examined at bed side in ICU. Patient feeling better than yesterday. reports Oxycodone helped with abdominal discomfort and sleep last night. patient reports abdominal disconfert and bloating. denies CP, N/v/, subjective fevers, chills, Currently Afebrile, Tmax 102.1, WBC trended slightly down, lactic acid trended down, Vasopressin d/c levo dec to 13 unit. gained 5 lb Patient family now reports the night before symptoms started patient dined in an exotic Raw seafood restaurant in [facility]. OBJECTIVE: Vital Signs Period Temp Pulse Resp BP Sys/Pate Pulse Ox Last 24 Hr 98.2 F-101 F 61-82 14-22 96-136/56-82 100-100 GENERAL: The patient is awake, alert, and fully oriented, in no acute distress. HEAD: Normal with no signs of trauma. EYES: PERRL, extraocular movements intact, sclera anicteric, conjunctiva clear. No ptosis. ENT: Ears normal, nares patent, oropharynx clear without exudates, Dry mucous membranes membranes. NECK: Trachea midline, full range of motion, supple. LUNGS: Breath sounds equal, scattered basilar rhonchi, right chest annette cath HEART: Regular rate and rhythm, S1, S2 without murmur, rub or gallop. ABDOMEN: Soft, nontender, nondistended, hypoactive bowel sounds, no guarding, no rebound, no hepatosplenomegaly, no masses. EXTREMITIES: 2+ pulses, warm, well-perfused, no edema. right hand fracture limited 2nd metatarcel dressing. NEUROLOGICAL: Cranial nerves II through XII grossly intact. Normal speech, gait not observed. PSYCH: Normal mood, normal affect. SKIN: Warm, dry, normal turgor, no rashes or lesions noted Laboratory Results - last 24 hr 02/18/17 02/18/17 02/18/17 05:00 05:00 05:00 WBC RBC Hgb Hct MCV MCHC RDW Plt Count MPV Neutrophils % 61.0 Lymphocytes % 2.0 L Monocytes % 7.0 D Band Neutrophils 26.0 H Metamyelocytes 3 H D Myelocytes 1 Differential Comment Manual diff done INR PTT (Actin FS) Puncture Site ABG pH ABG pCO2 at Pt Temp ABG pO2 at Pt Temp ABG HCO3 ABG O2 Sat (Measured) ABG O2 Content ABG Base Excess Garfield Test O2 Delivery Device Oxygen Flow Rate PEEP Sodium Potassium Chloride Carbon Dioxide Anion Gap BUN Creatinine Creat Clearance w eGFR POC Glucometer Random Glucose Lactic Acid 4.120 H* Calcium Phosphorus Magnesium Total Bilirubin AST ALT Alkaline Phosphatase Troponin I Total Protein Albumin Random Vancomycin 6.937 02/18/17 02/18/17 02/18/17 10:13 15:20 15:20 WBC RBC Hgb Hct MCV MCHC RDW Plt Count MPV Neutrophils % Lymphocytes % Monocytes % Band Neutrophils Metamyelocytes Myelocytes Differential Comment INR PTT (Actin FS) Puncture Site ABG pH ABG pCO2 at Pt Temp ABG pO2 at Pt Temp ABG HCO3 ABG O2 Sat (Measured) ABG O2 Content ABG Base Excess Garfield Test O2 Delivery Device Oxygen Flow Rate PEEP Sodium Potassium Chloride Carbon Dioxide Anion Gap BUN Creatinine Creat Clearance w eGFR POC Glucometer [phone] Random Glucose Lactic Acid 2.520 H* Calcium Phosphorus Magnesium Total Bilirubin AST ALT Alkaline Phosphatase Troponin I 0.08 H Total Protein Albumin Random Vancomycin 02/18/17 02/18/17 02/18/17 16:35 17:10 21:16 WBC RBC Hgb Hct MCV MCHC RDW Plt Count MPV Neutrophils % Lymphocytes % Monocytes % Band Neutrophils Metamyelocytes Myelocytes Differential Comment INR PTT (Actin FS) Puncture Site Left radial ABG pH 7.33 L ABG pCO2 at Pt Temp 26.5 L ABG pO2 at Pt Temp 83.1 ABG HCO3 13.7 L* ABG O2 Sat (Measured) 94.2 ABG O2 Content 12.4 L ABG Base Excess -10.7 L* Garfield Test Positive O2 Delivery Device Nasal Oxygen Flow Rate 5l PEEP 0.0 Sodium Potassium Chloride Carbon Dioxide Anion Gap BUN Creatinine Creat Clearance w eGFR POC Glucometer 108.06465 236.04345 Random Glucose Lactic Acid Calcium Phosphorus Magnesium Total Bilirubin AST ALT Alkaline Phosphatase Troponin I Total Protein Albumin Random Vancomycin 02/19/17 02/19/17 02/19/17 05:15 05:15 05:15 WBC 32.9 H* RBC 3.11 L Hgb 8.9 L Hct 27.8 L MCV 89.4 MCHC 32.2 RDW 17.7 H Plt Count 231 MPV 8.8 D Neutrophils % Y Lymphocytes % Y Monocytes % Band Neutrophils Metamyelocytes Myelocytes Differential Comment INR 1.18 H PTT (Actin FS) 44.3 H Puncture Site ABG pH ABG pCO2 at Pt Temp ABG pO2 at Pt Temp ABG HCO3 ABG O2 Sat (Measured) ABG O2 Content ABG Base Excess Garfield Test O2 Delivery Device Oxygen Flow Rate PEEP Sodium 138 Potassium 3.7 Chloride 110 H Carbon Dioxide 16 L Anion Gap 12 BUN 27 H D Creatinine 1.2 D Creat Clearance w eGFR 59.35 POC Glucometer Random Glucose 192 H Lactic Acid Calcium 6.9 L* Phosphorus 3.2 Magnesium 2.2 D Total Bilirubin 0.5 D AST 149 H ALT 166 H D Alkaline Phosphatase 102 Troponin I Total Protein 5.1 L Albumin 2.2 L Random Vancomycin 02/19/17 02/19/17 05:15 05:22 WBC RBC Hgb Hct MCV MCHC RDW Plt Count MPV Neutrophils % Lymphocytes % Monocytes % Band Neutrophils Metamyelocytes Myelocytes Differential Comment INR PTT (Actin FS) Puncture Site ABG pH ABG pCO2 at Pt Temp ABG pO2 at Pt Temp ABG HCO3 ABG O2 Sat (Measured) ABG O2 Content ABG Base Excess Garfield Test O2 Delivery Device Oxygen Flow Rate PEEP Sodium Potassium Chloride Carbon Dioxide Anion Gap BUN Creatinine Creat Clearance w eGFR POC Glucometer 214.29984 Random Glucose Lactic Acid 1.541 Calcium Phosphorus Magnesium Total Bilirubin AST ALT Alkaline Phosphatase Troponin I Total Protein Albumin Random Vancomycin Active Medications Generic Name Dose Route Start Last Admin Trade Name Freq PRN Reason Stop Dose Admin Acetaminophen 650 mg 02/17/17 18:22 02/19/17 02:30 Tylenol - PO 650 mg Q6H PRN Administration FEVER OR PAIN Chlorhexidine Gluconate 1 applic 02/17/17 22:00 02/18/17 21:50 Hibiclens For Decolonization - TP 1 applic HS JOE Administration Enoxaparin Sodium 120 mg 02/17/17 22:00 02/18/17 21:50 Lovenox - SQ 120 mg HS JOE Administration Norepinephrine Bitartrate 8, 1,000 mls @ 37.5 mls/hr 02/17/17 15:30 02/19/17 03 :19 000 mcg/ Sodium Chloride IV 16 mcg/min TITR JOE Titration Protocol 5 MCG/MIN Sodium Chloride 1,000 mls @ 100 mls/hr 02/17/17 18:30 02/19/17 02:39 Normal Saline - IV 100 mls/hr ASDIR JOE Administration Vasopressin 50 units/ Sodium 100 mls @ 6 mls/hr 02/19/17 01:04 02/19/17 02:38 Chloride IVPB 1 units/hr TITR JOE Titration 3 UNITS/HR Piperacillin Sod/Tazobactam Sod 100 mls @ 200 mls/hr 02/18/17 10:00 02/19/17 02 :31 Zosyn 4.5gm Ivpb (Pre-Docked) IVPB 200 mls/hr Q8H-IV JOE Administration Protocol Insulin Aspart 1 vial 02/17/17 22:00 02/19/17 06:00 Novolog Vial Sliding Scale - SQ 2 units ACHS JOE Administration Protocol Levothyroxine Sodium 100 mcg/ 175 mcg 02/18/17 07:00 02/19/17 05:59 Levothyroxine Sodium 75 mcg PO 175 mcg DAILY@0700 JOE Administration Mupirocin 1 applic 02/17/17 22:00 02/18/17 21:50 Bactroban Ointment (For Decolonization) - NS 02/22/17 21:59 1 applic BID JOE Administration Ondansetron HCl 4 mg 02/17/17 18:22 02/18/17 23:48 Zofran Injection IVPB 4 mg Q6H PRN Administration NAUSEA Oxycodone HCl 5 mg 02/17/17 18:22 02/19/17 02:58 Roxicodone - PO 5 mg Q6H PRN Administration PAIN Pantoprazole Sodium 40 mg 02/18/17 10:00 02/18/17 09:26 Protonix - PO 40 mg DAILY JOE Administration Vancomycin HCl 250 mg 02/18/17 12:00 02/19/17 05:26 Vancomycin Oral Solution PO 250 mg Q6HPO JOE Administration Microbiology 02/17/17 13:07 Blood - Central Line Blood Culture - Preliminary Pending Organism Pending Organism#2 02/18/17 01:54 Stool Salmonella/Shigella Culture - Preliminary NO ENTERIC PATHOGENS, 24 HOURS, ON PRIMARY PLATES 02/18/17 01:54 Stool Yersinia Culture - Preliminary NO ENTERIC PATHOGENS, 24 HOURS, ON PRIMARY PLATES 02/18/17 01:54 Stool Vibrio Culture - Preliminary NO ENTERIC PATHOGENS, 24 HOURS, ON PRIMARY PLATES 02/18/17 01:54 Stool Escherichia coli 0157 Culture - Preliminary NO ENTERIC PATHOGENS, 24 HOURS, ON PRIMARY PLATES 02/17/17 15:31 Urine - Urine Clean Catch Urine Culture - Final NO GROWTH OBTAINED 02/17/17 13:07 Blood - Central Line Blood Culture - Preliminary Pending Organism 02/18/17 00:30 Blood - Peripheral Venous Blood Culture - Preliminary NO GROWTH OBTAINED AFTER 24 HOURS, INCUBATION TO CONTINUE FOR 4 DAYS. 02/18/17 00:30 Blood - Peripheral Venous Blood Culture - Preliminary NO GROWTH OBTAINED AFTER 24 HOURS, INCUBATION TO CONTINUE FOR 4 DAYS. 02/18/17 06:30 Stool Parasite Direct Smear - Final 02/18/17 06:30 Stool Ova and Parasite Macroscopic Exam - Final 02/18/17 06:30 Stool Parasite Concentrated Smear - Preliminary 02/18/17 06:30 Stool Parasite Permanent Smear - Preliminary 02/18/17 06:30 Stool Cryptosporidium Antigen - Final 02/18/17 06:30 Stool - Final 02/18/17 06:30 Stool Giardia Antigen (ABEBE) - Final 02/18/17 01:54 Stool Clostridium difficile Antigen (ABEBE) - Final 02/18/17 01:54 Stool Clostridium difficile Toxin Assay - Final 02/18/17 00:30 Nasopharyngeal Swab Respiratory Virus Panel - Preliminary 02/18/17 00:30 Nasopharyngeal Swab Influenza Types A,B Antigen (ABEBE) - Final 02/18/17 00:30 Nasopharyngeal Swab - Final ASSESSMENT/PLAN: Pt is a 71yr old man with PMHx of pancreatic cancer (diagnosed 09/16) s/p 6 round chemo therapy (last one 3-4 weeks ago), HTN, HLD, DM, hypothyroidism in setting of thyroid resection, DVT and GIB s/p billiary tree stenting, cholithiases , recent c. diff. Now in the ICU for management of septic shock , likely abdominal source from possible gallbladder. Pulm: Congestive changes in second chest xray (my read) previously clear -O2 support prn for sat >94% -Incentive spirometer -Nebulizers prn -f/u repeat chest xray and abg in am ID: Septic shock: preliminary Bcx 2 organisms(gram neg roni and gram + cocci in chains) d/c Vasopressin and Levophed decreased to 12mcg/min, most likely source gallbladder, secondary hxs diverticulitis, third source from port cath(less likely gram neg rods and no sign of infection), in light of new information patient dined at exotic seafood restaurant the night before symptoms started possible source of infection. End organ damage(ANIYAH, alctic acid, elev troponin) trending down on CT "Question of superimposed cholecystitis, possibly related to the indwelling biliary stent. Biliary tree: Indwelling stent." US- US of abd, with no clear evidence of acute cholecystitis -f/u cultures -on Vanco IV and PO and zosyn -IVF to keep CVP 8-12 -Central line for CVP monitoring -titrate pressors to maintain MAP >65 -monitor urine output, creatinine -O2 to keep SpO2 >90% -f/u cultures and stool studies -C diff tox and antigen negative: recent history of C diff infection resistant to flagyl and treated with vanco, and recent use of antibiotics, GI Pancreatic Ca: discussed case with with family and [facility], transfer process initiated. in case he needs Percutaneous drainage in light possible whipples procedure plan in the same hospital. - US of abd, with no clear evidence of acute cholecystitis - Antiemetics - pain control - surgery consult Renal: prerenal azotemia 2/2 hypo-perfusion due to septic shock, improving. ON CT : Kidneys: A 19 x 17 2 mm mass arises from the upper pole of the left kidney. There are areas that don't measure the density of simple cysts in this needs to be correlated with a renal ultrasound -IVF as tolerated -Replete electrolytes prn -Strict I/Os Cardio -f/u enzymes -Continue Levophed for MAP 65-75 -Strict I/O HLD: -not on meds -no issues Hemotology: -h/o DVT s/p IVC filter -continue AC Endo:DM -Hold oral hypoglycemics -ISS -fingersticks ACHS Hypothyroidism: -Continue home synthroid Neuro -Pain management (opioid allergy) Prophylactic -DVT (hx of DVT)- continue Lovenox 120mg hs -Continue home florastor -Continue Protonix -PT consult FEN: NS @ 100ml/hr and boluses PRN no electrolyte issues, monitor and replete as needed low fat diet Dispo: transfer has been initiated and patient excepted in [facility], awaiting a bed. Visit type - Emergency Visit Emergency Visit: Yes ED Registration Date: 02/17/17 Care time: The patient presented to the Emergency Department on the above date and was hospitalized for further evaluation of their emergent condition. - New Patient This patient is new to me today: No - Critical Care Critical Care patient: Yes Total Critical Care Time (in minutes): 43 Critical Care Statement: The care of this patient involved high complexity decision making to prevent further life threatening deterioration of the patient 's condition and/or to evalute & treat vital organ system(s) failure or risk of failure.
[2017-02-19] MEDS: PANTOPRAZOLE 40 MG TABLET (FP) PO SCH (09:13)
[2017-02-19] MEDS: MUPIROCIN 2% TOPICAL OINTMENT FOR DECOLONIZATION NS SCH ×2 (09:19→21:22)
--- NOTE | 2017-02-19 09:22 | PN ---
Progress Note (short form) - Note Progress Note: patient seen and examined chart reviewed pressors being tapered- off resting comfortably denies chest pain or abdominal pain no nausea or vomiting no fevers or chills overnight has been told he has a "bad" gallbladder in the past Vital Signs Period Temp Pulse Resp BP Sys/Pate Pulse Ox Last 24 Hr 98.2 F-101 F 61-80 14-22 96-136/56-82 100-100 cor-rrr lungs clear, decreased bs at bases abd soft,no distention, nontender ext no edema CBC, BMP 02/19/17 05:15 02/19/17 05:15 Microbiology 02/17/17 13:07 Blood - Central Line Blood Culture - Preliminary Pending Organism 02/18/17 00:30 Blood - Peripheral Venous Blood Culture - Preliminary NO GROWTH OBTAINED AFTER 24 HOURS, INCUBATION TO CONTINUE FOR 4 DAYS. 02/18/17 00:30 Blood - Peripheral Venous Blood Culture - Preliminary NO GROWTH OBTAINED AFTER 24 HOURS, INCUBATION TO CONTINUE FOR 4 DAYS. 02/18/17 06:30 Stool Parasite Direct Smear - Final 02/18/17 06:30 Stool Ova and Parasite Macroscopic Exam - Final 02/18/17 06:30 Stool Parasite Concentrated Smear - Preliminary 02/18/17 06:30 Stool Parasite Permanent Smear - Preliminary 02/18/17 06:30 Stool Cryptosporidium Antigen - Final 02/18/17 06:30 Stool - Final 02/18/17 06:30 Stool Giardia Antigen (ABEBE) - Final 02/18/17 01:54 Stool Clostridium difficile Antigen (ABEBE) - Final 02/18/17 01:54 Stool Clostridium difficile Toxin Assay - Final 02/18/17 00:30 Nasopharyngeal Swab Respiratory Virus Panel - Preliminary 02/17/17 13:07 Blood - Central Line Blood Culture - Preliminary NO GROWTH OBTAINED AFTER 24 HOURS, INCUBATION TO CONTINUE FOR 4 DAYS. 02/18/17 00:30 Nasopharyngeal Swab Influenza Types A,B Antigen (ABEBE) - Final 02/18/17 00:30 Nasopharyngeal Swab - Final cdiff negative toxin/antigen ct scan- biliary stent, gallbladder distention, Left kidney mass Current Medications Acetaminophen (Tylenol -) 650 mg PO Q6H PRN PRN Reason: FEVER OR PAIN Last Admin: 02/19/17 02:30 Dose: 650 mg Chlorhexidine Gluconate (Hibiclens For Decolonization -) 1 applic TP HS JOE Last Admin: 02/18/17 21:50 Dose: 1 applic Enoxaparin Sodium (Lovenox -) 120 mg SQ HS JOE Last Admin: 02/18/17 21:50 Dose: 120 mg Norepinephrine Bitartrate 8, (000 mcg/ Sodium Chloride) 1,000 mls @ 37.5 mls/ hr IV TITR JOE; 5 MCG/MIN PRN Reason: Protocol Last Titration: 02/19/17 03:19 Dose: 16 mcg/min Sodium Chloride (Normal Saline -) 1,000 mls @ 100 mls/hr IV ASDIR JOE Last Admin: 02/19/17 02:39 Dose: 100 mls/hr Vasopressin 50 units/ Sodium (Chloride) 100 mls @ 6 mls/hr IVPB TITR JOE PRN Reason: 3 UNITS/HR Last Titration: 02/19/17 08:28 Dose: 0 units/hr Piperacillin Sod/Tazobactam Sod (Zosyn 4.5gm Ivpb (Pre-Docked)) 100 mls @ 200 mls/hr IVPB Q8H-IV JOE PRN Reason: Protocol Last Admin: 02/19/17 09:13 Dose: 200 mls/hr Insulin Aspart (Novolog Vial Sliding Scale -) 1 vial SQ ACHS JOE PRN Reason: Protocol Last Admin: 02/19/17 06:00 Dose: 2 units Levothyroxine Sodium 100 mcg/ (Levothyroxine Sodium 75 mcg) 175 mcg PO DAILY@ 0700 [facility] Last Admin: 02/19/17 05:59 Dose: 175 mcg Mupirocin (Bactroban Ointment (For Decolonization) -) 1 applic NS BID [facility] Stop: 02/22/17 21:59 Last Admin: 02/19/17 09:19 Dose: 1 applic Ondansetron HCl (Zofran Injection) 4 mg IVPB Q6H PRN PRN Reason: NAUSEA Last Admin: 02/18/17 23:48 Dose: 4 mg Oxycodone HCl (Roxicodone -) 5 mg PO Q6H PRN PRN Reason: PAIN Last Admin: 02/19/17 02:58 Dose: 5 mg Pantoprazole Sodium (Protonix -) 40 mg PO DAILY [facility] Last Admin: 02/19/17 09:13 Dose: 40 mg Vancomycin HCl (Vancomycin Oral Solution) 250 mg PO Q6HPO [facility] Last Admin: 02/19/17 05:26 Dose: 250 mg a/p gram negative sepsis- improving hemodynamically continue zosyn f/u cultures complicated case - pancreatic cancer on chemo last 3 weeks ago with plans for RT and potentially future surgery question of biliary disease has been raised for sonogram and surgical evaluation hemodynamically has improved with tapering of steroids needs surgical evaluation d/w primary service- suggest speaking to his team at [facility] to coordinate his care may benefit from transfer history of cdiff- given need for present systemic antibiotics to treat his gram negative bacteremia, would continue po vancomycin decrease to 125 mg po qid can d/c isolation overall ICU time of 45 minutes in the care of this critically ill ICU patient
[2017-02-19 09:28] LABS: METAMYELOCYTE 1 % (0-2)
[2017-02-19 09:29] LABS: PLATELET ESTIMATE ADEQUATE (NORMAL)
[2017-02-19] MEDS ORDERED: PT OWN MED DRAWER 7, Y5N ONE (11:27)
[2017-02-19] MEDS ORDERED: NOREPINEPHRINE BITARTRATE 4 MG/4 ML ML IV ONE ×3 (11:39→21:18)
--- NOTE | 2017-02-19 12:34 | PN ---
Teaching Attending Note Name of Resident: Jordana Estrella ATTENDING PHYSICIAN STATEMENT I saw and evaluated the patient. I reviewed the resident's note and discussed the case with the resident. I agree with the resident's findings and plan as documented. SUBJECTIVE: Pt seen and examined in the ICU. Remains on levophed gtt. Fever curve trending down. Denies shortness of breath or chest pain. Denies abdominal pain, nausea or vomiting. OBJECTIVE: Last Vital Signs Temp Pulse Resp BP Pulse Ox 98.4 F 66 18 104/69 98 02/19/17 10:00 02/19/17 11:44 02/19/17 10:00 02/19/17 11:44 02/19/17 09:39 Intake & Output 02/16/17 02/17/17 02/18/17 02/19/17 23:59 23:59 23:59 23:59 Intake Total 400 7924 3172 Output Total 883 835 1433 Balance -500 7324 2122 Weight 195 lb 8 oz 198 lb 8 oz 205 lb 4.006 oz Gen: more alert, awake Heart: RRR Lung: decreased breath sounds at the bases Abd: soft, nontender Ext: trace edema CBC, BMP 02/19/17 05:15 02/19/17 05:15 Active Medications Acetaminophen (Tylenol -) 650 mg PO Q6H PRN PRN Reason: FEVER OR PAIN Last Admin: 02/19/17 02:30 Dose: 650 mg Chlorhexidine Gluconate (Hibiclens For Decolonization -) 1 applic TP HS JOE Last Admin: 02/18/17 21:50 Dose: 1 applic Enoxaparin Sodium (Lovenox -) 120 mg SQ HS JOE Last Admin: 02/18/17 21:50 Dose: 120 mg Norepinephrine Bitartrate 8, (000 mcg/ Sodium Chloride) 1,000 mls @ 37.5 mls/ hr IV TITR JOE; 5 MCG/MIN PRN Reason: Protocol Last Titration: 02/19/17 11:44 Dose: 14 mcg/min Sodium Chloride (Normal Saline -) 1,000 mls @ 100 mls/hr IV ASDIR JOE Last Admin: 02/19/17 02:39 Dose: 100 mls/hr Vasopressin 50 units/ Sodium (Chloride) 100 mls @ 6 mls/hr IVPB TITR JOE PRN Reason: 3 UNITS/HR Last Titration: 02/19/17 08:28 Dose: 0 units/hr Piperacillin Sod/Tazobactam Sod (Zosyn 4.5gm Ivpb (Pre-Docked)) 100 mls @ 200 mls/hr IVPB Q8H-IV JOE PRN Reason: Protocol Last Admin: 02/19/17 09:13 Dose: 200 mls/hr Insulin Aspart (Novolog Vial Sliding Scale -) 1 vial SQ ACHS JOE PRN Reason: Protocol Last Admin: 02/19/17 10:49 Dose: Not Given Levothyroxine Sodium 100 mcg/ (Levothyroxine Sodium 75 mcg) 175 mcg PO DAILY@ 0700 [facility] Last Admin: 02/19/17 05:59 Dose: 175 mcg Mupirocin (Bactroban Ointment (For Decolonization) -) 1 applic NS BID [facility] Stop: 02/22/17 21:59 Last Admin: 02/19/17 09:19 Dose: 1 applic Ondansetron HCl (Zofran Injection) 4 mg IVPB Q6H PRN PRN Reason: NAUSEA Last Admin: 02/18/17 23:48 Dose: 4 mg Oxycodone HCl (Roxicodone -) 5 mg PO Q6H PRN PRN Reason: PAIN Last Admin: 02/19/17 02:58 Dose: 5 mg Pantoprazole Sodium (Protonix -) 40 mg PO DAILY [facility] Last Admin: 02/19/17 09:13 Dose: 40 mg Vancomycin HCl (Vancomycin Oral Solution) 125 mg PO Q6HPO [facility] Last Admin: 02/19/17 11:29 Dose: 125 mg ASSESSMENT AND PLAN: Gram Negative Bacteremia Septic Shock Acute Kidney injury Lactic Acidosis r/o Intra-abdominal sepsis Pancreatic Cancer s/p recent chemo HTN DM h/o DVT s/p IVC filter - continue antibiotics - f/u cultures - IVF to keep CVP 8-12 - titrate pressors to maintain MAP >65 - trend lactate - monitor urine output, creatinine - abdominal ultrasound - O2 to keep SpO2 >90% - continue anticoagulation - PO as tolerated - may benefit from transfer to [facility] if intervention planned as he was being prepped for possible Whipple - DVT/GI prophylaxis
[2017-02-19] MEDS: NOREPINEPHRINE BITARTRATE 8,000 MCG in SODIUM CHLORIDE 0.45% 992 ML IV SCH (14:00)
--- NOTE | 2017-02-19 14:13 | PN ---
Teaching Attending Note Name of Resident: Kevin Katz ATTENDING PHYSICIAN STATEMENT I saw and evaluated the patient. I reviewed the resident's note and discussed the case with the resident. I agree with the resident's findings and plan as documented. SUBJECTIVE: no fever or chills, no abd apin , no diarrhea . no SOB. no events over night OBJECTIVE: NAD , AAOx3 CV : RRR, no MRG Lung s: CTAB ext : no edema ABd : soft , NT, ND , NL BS ASSESSMENT AND PLAN: 71 y/o gentleman with h/o pancreatic carcinoma s/p chemo , h/o DVT s/p IVC filter placement , and HTN who presented with ABd pain and diarrhea , and was found to have septic shock and bacteremia 1- Septic shock, with G - bacteremia , likely due to abdominal source . Gall bladder looked abnormal on CT scan . ? acute cholecystitis , although his abd exam is benign and has no RUQ pain. - US of abd, with no cear evidence of acute cholecystitis - Surgery consult . - cont zosyn . - follow repeat blood cx done yesterday - will plan on transferring to [facility] , in case he needs Percutaneous drainage as the plan for him is Whipple there - cont levophed . - no c diff , but will cont po vanco at lower dose whilel on Abx due to h/o severe C diff 2- ANIYAH : due tot sepsis , resolved 3- Transaminitis : could be due to sepsis and septic shock . will monitor closely 4- h/o pancreatic cancer. plan is for Whipple procedure as out pt after chemo. 5- h/o DVT , cont therapeutic dose of lovenox Dipo : case was d/w Dr. Luque , his oncologist at [facility], who accepted the patient for a transfer. Further management there . CCT 45 min
[2017-02-19] MEDS: VANCOMYCIN 1 GRAM (PRE-DOCKED) 1,000 MG/250 ML BAG IVPB SCH ×2 (14:58→21:23)
--- NOTE | 2017-02-19 15:19 | PN ---
[id number] cancer, hypertension, hypercholesterolemia, right lower extremity deep venous thrombosis, diabetes mellitus, and hypothyroidism s/p thyroid resection. For his pancreatic cancer, patient has received care and chemotherapy at [facility] and plan was to start radiation therapy today in hopes of decreasing tumor size for possible Whipple procedure, patient states he has had no surgery yet. Patient states he underwent multiple endoscopies and biliary stenting, complicated by bleeding which resulted in ICU admission for 2 weeks. Patient was also treated for C. diff. The patient was brought to [facility] emergency department on Saturday from home with abdominal pain, altered mental status, and fever. Patient was admitted with septic shock with concern for gallbladder as source. Patient seen and examined with at bedside. Patient states he is now feeling better than yesterday and denies abdominal pain. He denies fever, chills, nausea, vomiting. Last Vital Signs Temp Pulse Resp BP Pulse Ox 98.4 F 63 18 110/74 98 02/19/17 10:00 02/19/17 13:22 02/19/17 12:00 02/19/17 13:22 02/19/17 09:39 CBC, BMP 02/19/17 05:15 02/19/17 05:15 Exam: Gen: NAD Abd: soft, nontender, no guarding, no rebound US today- thick-walled gallbladder containing stones and biliary sludge. No definite evidence of acute cholecystitis. A/P Patient discussed with Dr. Mart, plan was to send patient to for perc cholecystostomy. Following discussion with patient, family, and ICU team, plan is now to transfer patient back to [facility] as original care and plan was to have further treatment and possible Whipple there. <Kaylee Brennan - Last Filed: 02/19/17 16:13> - Note Progress Note: Agree History reviewed with patient and his Awaiting Whipple at [facility] for Pancreatic Cancer S/P biliary stent Currently on chemotherapy In ICU On pressors but needing decreasing doses ID treating for possible C Diff colitis Question of cholecystitis on imaging No RUQ pain WBC 32 As patient is being treated at [facility], he is being transferred there for further care <Nghia Mart - Last Filed: 02/19/17 22:57>
--- NOTE | 2017-02-19 17:13 | EKG ---
Test Reason : Blood Pressure : / mmHG Vent. Rate : 093 BPM Atrial Rate : 093 BPM P-R Int : 152 ms QRS Dur : 128 ms QT Int : 352 ms P-R-T Axes : 010 -31 040 degrees QTc Int : 437 ms SINUS RHYTHM WITH PREMATURE ATRIAL COMPLEXES LEFT AXIS DEVIATION RIGHT BUNDLE BRANCH BLOCK ABNORMAL ECG WHEN COMPARED WITH ECG OF 17-FEB-2017 13:12, PREMATURE ATRIAL COMPLEXES ARE NOW PRESENT VENT. RATE HAS DECREASED Confirmed by JOHN SMITH, CHIKI ([id number]) on 02/19/2017 5:13:03 PM Referred By: CECI Confirmed By:CHIKI LOPEZ MD
--- NOTE | 2017-02-19 17:25 | PN ---
Physical Exam: SUBJECTIVE: Patient seen and examined at bedside [facility] OBJECTIVE: Vital Signs Period Temp Pulse Resp BP Sys/Pate Pulse Ox Last 24 Hr 98.2 F-99.8 F 61-74 15-22 89-136/56-82 98-100 GENERAL: Awake, alert, and fully oriented, in no acute distress. HEAD: Normal with no signs of trauma. EYES: Pupils equal, round and reactive to light, extraocular movements intact NECK: Normal range of motion LUNGS: Breath sounds equal, clear to auscultation bilaterally HEART: Regular rate and rhythm, normal S1 and S2 ABDOMEN: Soft, nontender, not distended, normoactive bowel sound. NEUROLOGICAL: Cranial nerves II-XII grossly intact. Normal speech. Laboratory Results - last 24 hr 02/18/17 02/19/17 02/19/17 21:16 05:15 05:15 WBC 32.9 H* RBC 3.11 L Hgb 8.9 L Hct 27.8 L MCV 89.4 MCHC 32.2 RDW 17.7 H Plt Count 231 MPV 8.8 D Neutrophils % 85.0 H D Lymphocytes % 1.0 L D Monocytes % 4.0 Eosinophils % 1.0 D Band Neutrophils 8.0 D Metamyelocytes 1 D Differential Comment Manual diff done Platelet Estimate Adequate INR 1.18 H PTT (Actin FS) 44.3 H Sodium Potassium Chloride Carbon Dioxide Anion Gap BUN Creatinine Creat Clearance w eGFR POC Glucometer 236.52002 Random Glucose Lactic Acid Calcium Phosphorus Magnesium Total Bilirubin AST ALT Alkaline Phosphatase Total Protein Albumin 02/19/17 02/19/17 02/19/17 05:15 05:15 05:22 WBC RBC Hgb Hct MCV MCHC RDW Plt Count MPV Neutrophils % Lymphocytes % Monocytes % Eosinophils % Band Neutrophils Metamyelocytes Differential Comment Platelet Estimate INR PTT (Actin FS) Sodium 138 Potassium 3.7 Chloride 110 H Carbon Dioxide 16 L Anion Gap 12 BUN 27 H D Creatinine 1.2 D Creat Clearance w eGFR 59.35 POC Glucometer 214.44230 Random Glucose 192 H Lactic Acid 1.541 Calcium 6.9 L* Phosphorus 3.2 Magnesium 2.2 D Total Bilirubin 0.5 D AST 149 H ALT 166 H D Alkaline Phosphatase 102 Total Protein 5.1 L Albumin 2.2 L 02/19/17 02/19/17 10:48 16:27 WBC RBC Hgb Hct MCV MCHC RDW Plt Count MPV Neutrophils % Lymphocytes % Monocytes % Eosinophils % Band Neutrophils Metamyelocytes Differential Comment Platelet Estimate INR PTT (Actin FS) Sodium Potassium Chloride Carbon Dioxide Anion Gap BUN Creatinine Creat Clearance w eGFR POC Glucometer 185.90213 115.91728 Random Glucose Lactic Acid Calcium Phosphorus Magnesium Total Bilirubin AST ALT Alkaline Phosphatase Total Protein Albumin Active Medications Generic Name Dose Route Start Last Admin Trade Name Freq PRN Reason Stop Dose Admin Acetaminophen 650 mg 02/17/17 18:22 02/19/17 02:30 Tylenol - PO 650 mg Q6H PRN Administration FEVER OR PAIN Chlorhexidine Gluconate 1 applic 02/17/17 22:00 02/18/17 21:50 Hibiclens For Decolonization - TP 1 applic HS JOE Administration Enoxaparin Sodium 120 mg 02/17/17 22:00 02/18/17 21:50 Lovenox - SQ 120 mg HS JOE Administration Norepinephrine Bitartrate 8, 1,000 mls @ 37.5 mls/hr 02/17/17 15:30 02/19/17 14 :00 000 mcg/ Sodium Chloride IV 90 mls/hr TITR JOE Administration Protocol 5 MCG/MIN Sodium Chloride 1,000 mls @ 100 mls/hr 02/17/17 18:30 02/19/17 02:39 Normal Saline - IV 100 mls/hr ASDIR JOE Administration Vasopressin 50 units/ Sodium 100 mls @ 6 mls/hr 02/19/17 01:04 02/19/17 08:28 Chloride IVPB 0 units/hr TITR JOE Titration 3 UNITS/HR Piperacillin Sod/Tazobactam Sod 100 mls @ 200 mls/hr 02/18/17 10:00 02/19/17 16 :59 Zosyn 4.5gm Ivpb (Pre-Docked) IVPB 200 mls/hr Q8H-IV JOE Administration Protocol Insulin Aspart 1 vial 02/17/17 22:00 02/19/17 16:57 Novolog Vial Sliding Scale - SQ Not Given ACHS JOE Protocol Levothyroxine Sodium 100 mcg/ 175 mcg 02/18/17 07:00 02/19/17 05:59 Levothyroxine Sodium 75 mcg PO 175 mcg DAILY@0700 JOE Administration Mupirocin 1 applic 02/17/17 22:00 02/19/17 09:19 Bactroban Ointment (For Decolonization) - NS 02/22/17 21:59 1 applic BID JOE Administration Ondansetron HCl 4 mg 02/17/17 18:22 02/18/17 23:48 Zofran Injection IVPB 4 mg Q6H PRN Administration NAUSEA Oxycodone HCl 5 mg 02/17/17 18:22 02/19/17 02:58 Roxicodone - PO 5 mg Q6H PRN Administration PAIN Pantoprazole Sodium 40 mg 02/18/17 10:00 02/19/17 09:13 Protonix - PO 40 mg DAILY JOE Administration Vancomycin HCl 125 mg 02/19/17 12:00 02/19/17 17:00 Vancomycin Oral Solution PO 125 mg Q6HPO JOE Administration Vancomycin HCl 1,000 mg 02/19/17 13:45 02/19/17 14:58 Vancomycin (Pre-Docked) IVPB 1,000 mg BID JOE Administration Protocol ASSESSMENT/PLAN: 71M with an extensive PMH presents to the ED with septic shock and diarrhea: Septic shock: patient was febrile tachycardic and hypotensive. Despite fluid resuscitation he remained hypotensive on admission. Also has evidence of end organ damage as evidenced by ANIYAH. sepsis syndrome Patient had RUQ ultrasound initially read as negative for acute cholecystitis but called by radiologist that patient does have acute cholecystitis. it is very possible patient is bacteremic and septic from acute cholecystitis. pending transfer to [facility] accepted by quick sketch artist Dr. 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 Luque spoke to Dr. Luque today and he is expecting the patient at [facility] Hypothyroidism: continue synthroid 175mcg Qam DM: Hold oral hypoglycemics ISS fingersticks ACHS HLD: not on meds no issues FEN: NS @ 100ml/hr and boluses PRN no electrolyte issues low fat diet PPx: Lovenox therapeutic dosing Protonix PT consult Visit type - Emergency Visit Emergency Visit: Yes ED Registration Date: 02/17/17 Care time: The patient presented to the Emergency Department on the above date and was hospitalized for further evaluation of their emergent condition. - New Patient This patient is new to me today: No - Critical Care Critical Care patient: Yes Total Critical Care Time (in minutes): 60 Critical Care Statement: The care of this patient involved high complexity decision making to prevent further life threatening deterioration of the patient 's condition and/or to evalute & treat vital organ system(s) failure or risk of failure. - Discharge Referral Referred to [facility] Med P.C.: No
--- NOTE | 2017-02-19 17:36 | DS ---
Physical Exam: SUBJECTIVE: Patient seen and examined at bedside for transfer to [facility] OBJECTIVE: Vital Signs Period Temp Pulse Resp BP Sys/Pate Pulse Ox Last 24 Hr 98.2 F-99.8 F 61-74 15-22 89-136/56-82 98-100 PHYSICAL EXAM GENERAL: Awake, alert, and fully oriented, in no acute distress. HEAD: Normal with no signs of trauma. EYES: Pupils equal, round and reactive to light, extraocular movements intact NECK: Normal range of motion LUNGS: Breath sounds equal, clear to auscultation bilaterally HEART: Regular rate and rhythm, normal S1 and S2 ABDOMEN: Soft, nontender, not distended, normoactive bowel sound. NEUROLOGICAL: Cranial nerves II-XII grossly intact. Normal speech. LABS Laboratory Results - last 24 hr 02/18/17 02/19/17 02/19/17 21:16 05:15 05:15 WBC 32.9 H* RBC 3.11 L Hgb 8.9 L Hct 27.8 L MCV 89.4 MCHC 32.2 RDW 17.7 H Plt Count 231 MPV 8.8 D Neutrophils % 85.0 H D Lymphocytes % 1.0 L D Monocytes % 4.0 Eosinophils % 1.0 D Band Neutrophils 8.0 D Metamyelocytes 1 D Differential Comment Manual diff done Platelet Estimate Adequate INR 1.18 H PTT (Actin FS) 44.3 H Sodium Potassium Chloride Carbon Dioxide Anion Gap BUN Creatinine Creat Clearance w eGFR POC Glucometer [phone] Random Glucose Lactic Acid Calcium Phosphorus Magnesium Total Bilirubin AST ALT Alkaline Phosphatase Total Protein Albumin 02/19/17 02/19/17 02/19/17 05:15 05:15 05:22 WBC RBC Hgb Hct MCV MCHC RDW Plt Count MPV Neutrophils % Lymphocytes % Monocytes % Eosinophils % Band Neutrophils Metamyelocytes Differential Comment Platelet Estimate INR PTT (Actin FS) Sodium 138 Potassium 3.7 Chloride 110 H Carbon Dioxide 16 L Anion Gap 12 BUN 27 H D Creatinine 1.2 D Creat Clearance w eGFR 59.35 POC Glucometer 214.64242 Random Glucose 192 H Lactic Acid 1.541 Calcium 6.9 L* Phosphorus 3.2 Magnesium 2.2 D Total Bilirubin 0.5 D AST 149 H ALT 166 H D Alkaline Phosphatase 102 Total Protein 5.1 L Albumin 2.2 L 02/19/17 02/19/17 10:48 16:27 WBC RBC Hgb Hct MCV MCHC RDW Plt Count MPV Neutrophils % Lymphocytes % Monocytes % Eosinophils % Band Neutrophils Metamyelocytes Differential Comment Platelet Estimate INR PTT (Actin FS) Sodium Potassium Chloride Carbon Dioxide Anion Gap BUN Creatinine Creat Clearance w eGFR POC Glucometer 185.54137 115.88356 Random Glucose Lactic Acid Calcium Phosphorus Magnesium Total Bilirubin AST ALT Alkaline Phosphatase Total Protein Albumin HOSPITAL COURSE: Date of Admission:02/17/17 Date of Discharge: 02/19/17 71M with history of pancreatic Ca on chemo/radiation, HTN DVT on lovenox s/p IVC filter, DM HLD hypothyroidism s/p thyroid resection presented to the ED with a chief complaint of left sided abdominal and and 3-4 episodes of watery diarrhea. He was in his usual state of health until the morning of presentation when he started having the abdominal pain and diarrhea. He endorsed fevers and chills as well. Patient also has a history of C. Diff and was treated with PO vancomycin. He denies chest pain or shortness of breath. denies Dysuria or hematuria. denies nausea. when patient presented to the ED he was noted to be hypotensive and febrile. Started on broad spectrum ABx and admitted to ICU for septic shock as he received >30ml/kg of fluids and did not respond and required levophed, eventually also required vasopressin whcih has since been weaned off, and central line placement. Patient had ANIYAH on presentation as well. During his hospitalization patient developed gram negative bacteremia and also grew Gm positive cocci in chains. As he was being worked up for sepsis we obtained an ultrasound of the RUQ which was initially read as negative for acute cholecystitis but later received notification from radiologist that imaging was consistent with acute cholecystitis. Surgery consult obtained and he was going to have a percutaneous cholcystostomy tube drainage by interventional radiology but it was decided that he was going to go to [facility] where his doctors and surgeons are at and they will make the determination was to what the best route for him to take is. Patient is also being considered for a whipple as well. He remains on Vancomycin and zosyn. also on PO vancomycin for prophylaxis as he is on antibiotics and he had severe C. diff in the past. Can resume home medications on discharge from [facility] as per medical/surgical team 71M with an extensive PMH presents to the ED with septic shock and diarrhea: Septic shock: patient was febrile tachycardic and hypotensive. Despite fluid resuscitation he remained hypotensive on admission. Also has evidence of end organ damage as evidenced by ANIYAH. sepsis syndrome Patient had RUQ ultrasound initially read as negative for acute cholecystitis but called by radiologist that patient does have acute cholecystitis. it is very possible patient is bacteremic and septic from acute cholecystitis. pending transfer to [facility] accepted by surgeon Dr. Petersen to the surgivsl step down unit ID consult appreciated on Vanco IV and PO and zosyn stop vancomycing PO continue PO vanco and IV zosyn start flagyl given one dose of ciprofloxacin to double cover for gram negatives gram negative bacteremia/ gram positive cocci in chains-awaiting identification of organism. Proteus villa sensitive grew so far still awaiting identification of 2 other organisms off pressors for 24hours stop IVF excellent urine output pain control f/u stool studies UA WNL Strict I/O tylenol PRN fever antiemetics History of DVT: continue lovenox 120mg hs s/p IVC filter Pancreatic Ca: inpatient follow up with Dr. Luque spoke to Dr. Luque again today and he is expecting the patient at [facility] Hypothyroidism: continue synthroid 175mcg Qam DM: Hold oral hypoglycemics ISS fingersticks ACHS HLD: not on meds no issues FEN: stop IVF no electrolyte issues CLD-Clinimix for IV nutrition for now PPx: Lovenox therapeutic dosing Protonix PT consult Patient can be transferred to telemetry. Patient accepted to [facility] surgical step down unit accepted by surgeon Dr. Petersen Minutes to complete discharge: 60 Discharge Summary Reason For Visit: SEVERE SEPSIS Current Active Problems Acute cholecystitis (Acute) Severe sepsis (Acute) Transaminitis (Acute) Hypothyroidism (Chronic) Pancreatic malignant neoplasm (Chronic) Condition: Critical - Instructions Diet, Activity, Other Instructions: patient to be transferred to [facility] to ICU Referrals: Saurabh Luque MD [Primary Care Provider] - Disposition: TRANSFER ACUTE CARE/OTHER HOSP - Home Medications Comprehensive Discharge Medication List: Ambulatory Orders Buspirone HCl [Buspar -] 5 mg PO ONCE 12/23/16 Canagliflozin [Invokana] 300 mg PO DAILY 12/23/16 Levothyroxine [Synthroid -] 175 mcg PO DAILY 12/23/16 Lisdexamfetamine Dimesylate [Vyvanse] 30 mg PO DAILY 12/23/16 Omeprazole Magnesium [Prilosec] 40 mg PO DAILY 12/23/16 Pioglitazone HCl [Actos] 30 mg PO DAILY 12/23/16 Ranitidine HCl [Zantac] 150 mg PO DAILY 12/23/16 Saccharomyces Boulardii [Florastor] 0 mg PO BID 12/23/16 Sitagliptin Phos/Metformin HCl [Janumet 50-1,000 mg Tablet] 1 each PO BID Enoxaparin [Lovenox -] 120 mg SQ HS 02/19/17 Insulin Sliding Scale [Novolog Vial Sliding Scale -] 1 vial SQ ACHS units 02/19 Pantoprazole Sodium [Protonix -] 40 mg PO DAILY 02/19/17 Piperacillin/Tazob 3.375 gm [Zosyn 3.375GM Ivpb (Pre-Docked)] 3.375 gm IVPB BID bag 02/19/17 Vancomycin Oral Solution 125 mg PO Q6HPO ml 02/19/17 This patient is new to me today: No Emergency Visit: Yes ED Registration Date: 02/17/17 Care time: The patient presented to the Emergency Department on the above date and was hospitalized for further evaluation of their emergent condition. Critical Care patient: Yes Total Critical Care Time (in minutes): 60 Critical Care Statement: The care of this patient involved high complexity decision making to prevent further life threatening deterioration of the patient 's condition and/or to evalute & treat vital organ system(s) failure or risk of failure. - Discharge Referral Referred to [facility] Med P.C.: No
[2017-02-19] MEDS: CHLORHEXIDINE GLUCONATE 4% CLEANSER FOR DECOLONIZATION TP SCH (21:22)
[2017-02-19] MEDS: ENOXAPARIN NA (PORCINE) 120 MG/0.8 ML DISP.SYRIN SQ SCH (21:22)
[2017-02-20] MEDS ORDERED: LORazepam 0.5 MG TABLET PO ONE ×2 (01:20→22:45)
[2017-02-20] MEDS: VASOPRESSIN 50 UNITS in SODIUM CHLORIDE 97.5 ML IVPB SCH (02:36)
[2017-02-20] MEDS: PIPERACILLIN/TAZOB 4.5 GM 100 ML IVPB SCH ×3 (02:37→18:20)
[2017-02-20 05:50] LABS: MCH 28.3 pg (25.7-33.7); MEAN CELL VOLUME 88.4 fl (80-96); MEAN PLT VOLUME 8.4 fl (7.5-11.1); PLATELET COUNT 221 K/MM3 (134-434); RDW 17.6 % (11.9-15.9); WHITE BLOOD COUNT 27.2 K/mm3 (4.0-10.0)
[2017-02-20] MEDS: VANCOMYCIN 250 MG/5 ML ORAL SOLUTION PO SCH ×4 (06:07→23:43)
[2017-02-20] MEDS: INSULIN SLIDING SCALE (NOVOLOG) 1 VIAL SQ SCH ×4 (06:08→22:35)
[2017-02-20] MEDS ORDERED: LEVOTHYROXINE NA 75 MCG TABLET (FP) ONE (06:09)
[2017-02-20] MEDS ORDERED: LEVOTHYROXINE NA 100 MCG TABLET (FP) ONE (06:09)
[2017-02-20] MEDS: LEVOTHYROXINE 100 MCG, LEVOTHYROXINE 75 MCG PO SCH (06:10)
[2017-02-20 06:40] LABS: ANION GAP 9 (8-16); CO2 19 mmol/L (21-32); CREATININE 1.1 mg/dL (0.7-1.3); GLUCOSE,RANDOM 154 mg/dL (74-106); SGOT/AST 65 U/L (15-37); SGPT/ALT 134 U/L (12-78)
[2017-02-20 06:42] LABS: ALK PHOS 167 U/L (45-117); BILIRUBIN,TOTAL 0.6 mg/dL (0.2-1.0); TOT PROT 4.9 g/dl (6.4-8.2)
--- NOTE | 2017-02-20 07:02 | PN ---
Progress Note, Physician Chief Complaint: ID ICU follow up for this 71 year old male with pancreatic cancer and sepsis. Last chemotherapy several weeks ago [facility]. Presents with sepsis syndrome and polymicrobial bacteremia. Possibility of a gallbladder source and patient states he has been told of a "sick gallbladder " in the past but as he was asymptomatic never removed. Currently remains on pressor support and of concern WBC going up on antibiotics Imaging study raising question of gallbladder Has a biliary stent. Denies abd pain - Current Medication List Current Medications: Active Medications Acetaminophen (Tylenol -) 650 mg PO Q6H PRN PRN Reason: FEVER OR PAIN Last Admin: 02/19/17 21:32 Dose: 650 mg Chlorhexidine Gluconate (Hibiclens For Decolonization -) 1 applic TP HS JOE Last Admin: 02/19/17 21:22 Dose: 1 applic Enoxaparin Sodium (Lovenox -) 120 mg SQ HS JOE Last Admin: 02/19/17 21:22 Dose: 120 mg Norepinephrine Bitartrate 8, (000 mcg/ Sodium Chloride) 1,000 mls @ 37.5 mls/ hr IV TITR JOE; 5 MCG/MIN PRN Reason: Protocol Last Titration: 02/20/17 00:00 Dose: 9 mcg/min Sodium Chloride (Normal Saline -) 1,000 mls @ 100 mls/hr IV ASDIR JOE Last Admin: 02/19/17 21:10 Dose: Not Given Vasopressin 50 units/ Sodium (Chloride) 100 mls @ 6 mls/hr IVPB TITR JOE PRN Reason: 3 UNITS/HR Last Admin: 02/20/17 02:36 Dose: Not Given Piperacillin Sod/Tazobactam Sod (Zosyn 4.5gm Ivpb (Pre-Docked)) 100 mls @ 200 mls/hr IVPB Q8H-IV JOE PRN Reason: Protocol Last Admin: 02/20/17 02:37 Dose: 200 mls/hr Insulin Aspart (Novolog Vial Sliding Scale -) 1 vial SQ ACHS JOE PRN Reason: Protocol Last Admin: 02/20/17 06:08 Dose: Not Given Levothyroxine Sodium 100 mcg/ (Levothyroxine Sodium 75 mcg) 175 mcg PO DAILY@ 0700 [facility] Last Admin: 02/20/17 06:10 Dose: 175 mcg Mupirocin (Bactroban Ointment (For Decolonization) -) 1 applic NS BID [facility] Stop: 02/22/17 21:59 Last Admin: 02/19/17 21:22 Dose: 1 applic Ondansetron HCl (Zofran Injection) 4 mg IVPB Q6H PRN PRN Reason: NAUSEA Last Admin: 02/18/17 23:48 Dose: 4 mg Oxycodone HCl (Roxicodone -) 5 mg PO Q6H PRN PRN Reason: PAIN Last Admin: 02/19/17 23:40 Dose: 5 mg Pantoprazole Sodium (Protonix -) 40 mg PO DAILY [facility] Last Admin: 02/19/17 09:13 Dose: 40 mg Vancomycin HCl (Vancomycin Oral Solution) 125 mg PO Q6HPO [facility] Last Admin: 02/20/17 06:07 Dose: 125 mg Vancomycin HCl (Vancomycin (Pre-Docked)) 1,000 mg IVPB BID [facility] PRN Reason: Protocol Last Admin: 02/19/17 21:23 Dose: 1,000 mg - Objective Vital Signs: Vital Signs Temperature 98.6 F 02/20/17 06:00 Pulse Rate 66 02/20/17 06:00 Respiratory Rate 18 02/20/17 06:00 Blood Pressure 117/70 02/20/17 06:00 O2 Sat by Pulse Oximetry (%) 98 02/19/17 20:13 Constitutional: Yes: No Distress Eyes: Yes: WNL, Conjunctiva Clear HENT: Yes: WNL, Atraumatic Neck: Yes: WNL, Supple Cardiovascular: Yes: Regular Rate and Rhythm, S1, S2 Respiratory: Yes: WNL, Regular, CTA Bilaterally Gastrointestinal: Yes: WNL, Soft. No: Tenderness, Tenderness, Rebound Edema: No Labs: CBC, BMP 02/20/17 05:05 02/20/17 05:05 INR, PTT INR 1.18 (0.82-1.09) H 02/19/17 05:15 Problem List - Problems (1) Severe sepsis Code(s): A41.9 - SEPSIS, UNSPECIFIED ORGANISM R65.20 - SEVERE SEPSIS WITHOUT SEPTIC SHOCK (2) Polymicrobial septicemia Code(s): A41.9 - SEPSIS, UNSPECIFIED ORGANISM Assessment/Plan Microbiology 02/17/17 13:07 Blood - Central Line Blood Culture - Preliminary Pending Organism Pending Organism#2 02/17/17 13:07 Blood - Central Line Blood Culture - Preliminary Pending Organism Laboratory Tests 02/18/17 02/18/17 02/18/17 05:00 05:00 05:00 WBC Hgb Hct Plt Count BUN 35 H Creatinine 1.8 H Creat Clearance w eGFR 37.17 Lactic Acid 4.120 H* AST 169 H D ALT 98 H D Alkaline Phosphatase 89 Random Vancomycin 6.937 02/20/17 05:05 WBC 27.2 H Hgb 8.8 L Hct 27.6 L Plt Count 221 BUN Creatinine Creat Clearance w eGFR Lactic Acid AST ALT Alkaline Phosphatase Random Vancomycin Assessment Polymicrobial bacteremia GNB and Gram positive cocci chains Ruling out biliary source included the gallbladder and biliary tract Pancreatic cancer S/P chemotherapy DVT History of IVC filter Plan Patient should have surgical consult regarding management Consider GI opinion Continue antibiotics If transfer not imminent would consider placing cholecystomy tube sooner the latter given pressor requirement/ WBC elevation sepsis Await identification cultures 40 minutes spent critical care time Mago SMITH
[2017-02-20 07:26] LABS: PLATELET ESTIMATE ADEQUATE (NORMAL)
--- NOTE | 2017-02-20 08:07 | PN ---
Physical Exam: SUBJECTIVE: Patient seen and examined at bed side in ICU. Patient feeling better than yesterday, reports being thirsty, and has an appetite. Patient reports abdominal discomfort and bloating same as yesterday. Reports feeling abdominal fullness like there is fluid in his abdomen. Denies CP, N/V/ subjective fevers, chills, Currently Afebrile, WBC trended slightly down, lactic acid resolved. levo discontinued and patient maintaining BP. OBJECTIVE: Vital Signs Period Temp Pulse Resp BP Sys/Pate Pulse Ox Last 24 Hr 98.4 F-99.6 F 62-78 15-22 89-121/57-78 98-100 GENERAL: The patient is awake, alert, and fully oriented, in no acute distress. HEAD: Normal with no signs of trauma. EYES: extraocular movements intact, sclera anicteric, conjunctiva clear. ENT: Ears normal, nares patent, oropharynx clear without exudates, Dry mucous membranes membranes. NECK: Trachea midline, full range of motion, supple. LUNGS: decreased BS bilateral bases, no crackles or extra sounds. HEART: Regular rate and rhythm, S1, S2 without murmur, rub or gallop. ABDOMEN: Soft, nontender, mild distension, hyperactive bowel sounds, no guarding, no rebound, no hepatosplenomegaly, no masses. EXTREMITIES: 2+ pulses, warm, well-perfused, no edema. right hand fracture 2nd metatarcel no dressing dressing. NEUROLOGICAL: Cranial nerves II through XII grossly intact. Normal speech, gait not observed. PSYCH: Normal mood, normal affect. SKIN: Warm, dry, normal turgor, no rashes or lesions noted Laboratory Results - last 24 hr 02/19/17 02/19/17 02/19/17 05:15 10:48 16:27 WBC RBC Hgb Hct MCV MCHC RDW Plt Count MPV Neutrophils % 85.0 H D Lymphocytes % 1.0 L D Monocytes % 4.0 Eosinophils % 1.0 D Band Neutrophils 8.0 D Metamyelocytes 1 D Differential Comment Manual diff done Platelet Estimate Adequate Morphology Comment Sodium Potassium Chloride Carbon Dioxide Anion Gap BUN Creatinine Creat Clearance w eGFR POC Glucometer 185.01637 115.00301 Random Glucose Calcium Total Bilirubin AST ALT Alkaline Phosphatase Total Protein Albumin 02/19/17 02/20/17 02/20/17 21:39 05:05 05:05 WBC 27.2 H RBC 3.12 L Hgb 8.8 L Hct 27.6 L MCV 88.4 MCHC 32.0 RDW 17.6 H Plt Count 221 MPV 8.4 Neutrophils % 87.0 H Lymphocytes % 2.0 L D Monocytes % 2.0 L Eosinophils % 1.0 Band Neutrophils 8.0 Metamyelocytes Differential Comment Manual diff done Platelet Estimate Adequate Morphology Comment Slide scanned Sodium 144 Potassium 3.4 L Chloride 116 H Carbon Dioxide 19 L Anion Gap 9 BUN 18 D Creatinine 1.1 Creat Clearance w eGFR > 60 POC Glucometer 169.75597 Random Glucose 154 H Calcium 7.0 L Total Bilirubin 0.6 AST 65 H D ALT 134 H Alkaline Phosphatase 167 H D Total Protein 4.9 L Albumin 2.0 L 02/20/17 05:24 WBC RBC Hgb Hct MCV MCHC RDW Plt Count MPV Neutrophils % Lymphocytes % Monocytes % Eosinophils % Band Neutrophils Metamyelocytes Differential Comment Platelet Estimate Morphology Comment Sodium Potassium Chloride Carbon Dioxide Anion Gap BUN Creatinine Creat Clearance w eGFR POC Glucometer 170.03744 Random Glucose Calcium Total Bilirubin AST ALT Alkaline Phosphatase Total Protein Albumin Active Medications Generic Name Dose Route Start Last Admin Trade Name Freq PRN Reason Stop Dose Admin Acetaminophen 650 mg 02/17/17 18:22 02/19/17 21:32 Tylenol - PO 650 mg Q6H PRN Administration FEVER OR PAIN Chlorhexidine Gluconate 1 applic 02/17/17 22:00 02/19/17 21:22 Hibiclens For Decolonization - TP 1 applic HS JOE Administration Enoxaparin Sodium 120 mg 02/17/17 22:00 02/19/17 21:22 Lovenox - SQ 120 mg HS JOE Administration Norepinephrine Bitartrate 8, 1,000 mls @ 37.5 mls/hr 02/17/17 15:30 02/20/17 00 :00 000 mcg/ Sodium Chloride IV 9 mcg/min TITR JOE Titration Protocol 5 MCG/MIN Sodium Chloride 1,000 mls @ 100 mls/hr 02/17/17 18:30 02/19/17 21:10 Normal Saline - IV Not Given ASDIR JOE Vasopressin 50 units/ Sodium 100 mls @ 6 mls/hr 02/19/17 01:04 02/20/17 02:36 Chloride IVPB Not Given TITR JOE 3 UNITS/HR Piperacillin Sod/Tazobactam Sod 100 mls @ 200 mls/hr 02/18/17 10:00 02/20/17 02 :37 Zosyn 4.5gm Ivpb (Pre-Docked) IVPB 200 mls/hr Q8H-IV JOE Administration Protocol Insulin Aspart 1 vial 02/17/17 22:00 02/20/17 06:08 Novolog Vial Sliding Scale - SQ Not Given ACHS JOE Protocol Levothyroxine Sodium 100 mcg/ 175 mcg 02/18/17 07:00 02/20/17 06:10 Levothyroxine Sodium 75 mcg PO 175 mcg DAILY@0700 JOE Administration Mupirocin 1 applic 02/17/17 22:00 02/19/17 21:22 Bactroban Ointment (For Decolonization) - NS 02/22/17 21:59 1 applic BID JOE Administration Ondansetron HCl 4 mg 02/17/17 18:22 02/18/17 23:48 Zofran Injection IVPB 4 mg Q6H PRN Administration NAUSEA Oxycodone HCl 5 mg 02/17/17 18:22 02/19/17 23:40 Roxicodone - PO 5 mg Q6H PRN Administration PAIN Pantoprazole Sodium 40 mg 02/18/17 10:00 02/19/17 09:13 Protonix - PO 40 mg DAILY JOE Administration Vancomycin HCl 125 mg 02/19/17 12:00 02/20/17 06:07 Vancomycin Oral Solution PO 125 mg Q6HPO JOE Administration Vancomycin HCl 1,000 mg 02/19/17 13:45 02/19/17 21:23 Vancomycin (Pre-Docked) IVPB 1,000 mg BID JOE Administration Protocol ASSESSMENT/PLAN: Pt is a 71yr old man with PMHx of pancreatic cancer (diagnosed 09/16) s/p 6 round chemo therapy (last one 3-4 weeks ago), HTN, HLD, DM, hypothyroidism in setting of thyroid resection, DVT and GIB s/p billiary tree stenting, cholithiases , recent c. diff. Now in the ICU for management of septic shock , likely abdominal source from possible gallbladder. ID: Septic shock: preliminary Bcx 2 organisms(gram neg roni and gram + cocci in chains +Proteus ) gram negative bacteremia/ gram positive cocci in chains- awaiting sensitivity, Proteus villa sensitive. most likely source gallbladder, secondary hxs diverticulitis, third source from port cath(less likely gram neg rods and no sign of infection), in light of new information patient dined at [employer] restaurant the night before symptoms started possible source of infection. -Diarrhea Resolved -Creatnin, wbc- improving, Levophed decreased to 3 mcg/min, -US- reread acute cholecystitis. -f/u cultures -on Vanco IV and PO and zosyn -given one dose of ciprofloxacin to double cover for gram negatives per primary team. -IVF to keep CVP 8-12 -Central line for CVP monitoring -titrate pressors to maintain MAP >65 -monitor urine output, creatinine -O2 to keep SpO2 >90% -f/u cultures and stool studies -C diff tox and antigen negative: recent history of C diff infection resistant to flagyl and treated with vanco, and recent use of antibiotics, GI Pancreatic Ca: discussed case with with family and [facility], transfer process initiated. in case he needs Percutaneous drainage in light possible whipples procedure plan in the same hospital. - US of abd, with no clear evidence of acute cholecystitis - Antiemetics - pain control - surgery consult Renal: prerenal azotemia 2/2 hypo-perfusion due to septic shock, resolved ON CT : Kidneys: A 19 x 17 2 mm mass arises from the upper pole of the left kidney. There are areas that don't measure the density of simple cysts in this needs to be correlated with a renal ultrasound -IVF as tolerated -Replete electrolytes prn -Strict I/Os Pulm: Congestive changes in second chest xray previously clear -O2 support prn for sat >94% -Incentive spirometer -Nebulizers prn -f/u repeat chest xray and abg in am Cardio -f/u enzymes -Continue Levophed for MAP 65-75 -Strict I/O HLD: -not on meds -no issues Hemotology: -h/o DVT s/p IVC filter -continue AC Endo:DM -Hold oral hypoglycemics -ISS -fingersticks ACHS Hypothyroidism: -Continue home synthroid Neuro -Pain management (opioid allergy) Hypokalemia: secondary to IV fluid and diarhea Kcl given will check labs in AM Prophylactic: -DVT (hx of DVT)- continue Lovenox 120mg hs -Continue home florastor -Continue Protonix -PT consult FEN: NS @ 100ml/hr and boluses PRN, Clinimix for IV nutrition for now electrolyte monitor and replete as needed, NPO Dispo: transfer has been initiated and patient excepted in [facility], awaiting a bed. [facility] several times today to facilitated transfer. Visit type - Emergency Visit Emergency Visit: Yes ED Registration Date: 02/17/17 Care time: The patient presented to the Emergency Department on the above date and was hospitalized for further evaluation of their emergent condition. - New Patient This patient is new to me today: No - Critical Care Critical Care patient: Yes Total Critical Care Time (in minutes): 44 Critical Care Statement: The care of this patient involved high complexity decision making to prevent further life threatening deterioration of the patient 's condition and/or to evalute & treat vital organ system(s) failure or risk of failure.
--- NOTE | 2017-02-20 10:05 | PN ---
Progress Note (short form) - Note Progress Note: No acute events No RUQ pain Awaiting transfer Afebrile HR WNL BP 90-120/60-70 on pressors Pressor requirements are less Abd soft, NT, no RUQ pain WBC improved- now 27 Continue antibiotics NPO PPN If pressor requirements continue to improve and the patient remains afebrile without RUQ pain with an improving WBC would continue conservative management, hold off on IR drainage and await transfer If pressor requirement increase, the patient develops increased RUQ pain, fevers or the WBC increases then I would recommend a percutaneous cholecystostomy tube by Interventional Radiology
[2017-02-20] MEDS ORDERED: CIPROFLOXACIN 400 MG/D5W 200 ML IVPB ONE ×2 (10:15→11:15)
[2017-02-20] MEDS: PANTOPRAZOLE 40 MG TABLET (FP) PO SCH (10:30)
[2017-02-20] MEDS ORDERED: HEMOQUE TEST 1 EACH EACH ONE (10:48)
[2017-02-20] MEDS: MUPIROCIN 2% TOPICAL OINTMENT FOR DECOLONIZATION NS SCH ×2 (11:00→21:32)
--- NOTE | 2017-02-20 12:24 | PN ---
Teaching Attending Note Name of Resident: Jordana Estrella ATTENDING PHYSICIAN STATEMENT I saw and evaluated the patient. I reviewed the resident's note and discussed the case with the resident. I agree with the resident's findings and plan as documented. SUBJECTIVE: Pt seen and examined in the ICU. Remains on levophed gtt. Denies abdominal pain , nausea or vomiting. No fevers recorded. OBJECTIVE: Last Vital Signs Temp Pulse Resp BP Pulse Ox 98.6 F 66 18 127/77 98 02/20/17 10:00 02/20/17 12:00 02/20/17 12:00 02/20/17 12:00 02/20/17 10:00 Intake & Output 02/17/17 02/18/17 02/19/17 02/20/17 23:59 23:59 23:59 23:59 Intake Total 400 7924 5747 2075 Output Total 223 554 8474 1400 Balance -500 7324 1996 675 Weight 195 lb 8 oz 198 lb 8 oz 205 lb 4.006 oz 203 lb Gen: weak, somnolent but arousable Heart: RRR Lung: decreased breath sounds at the bases Abd: soft, nontender Ext: no edema CBC, BMP 02/20/17 05:05 02/20/17 05:05 Active Medications Acetaminophen (Tylenol -) 650 mg PO Q6H PRN PRN Reason: FEVER OR PAIN Last Admin: 02/19/17 21:32 Dose: 650 mg Chlorhexidine Gluconate (Hibiclens For Decolonization -) 1 applic TP HS JOE Last Admin: 02/19/17 21:22 Dose: 1 applic Enoxaparin Sodium (Lovenox -) 120 mg SQ HS JOE Last Admin: 02/19/17 21:22 Dose: 120 mg Norepinephrine Bitartrate 8, (000 mcg/ Sodium Chloride) 1,000 mls @ 37.5 mls/ hr IV TITR JOE; 5 MCG/MIN PRN Reason: Protocol Last Titration: 02/20/17 00:00 Dose: 9 mcg/min Sodium Chloride (Normal Saline -) 1,000 mls @ 100 mls/hr IV ASDIR JOE Last Admin: 02/19/17 21:10 Dose: Not Given Vasopressin 50 units/ Sodium (Chloride) 100 mls @ 6 mls/hr IVPB TITR JOE PRN Reason: 3 UNITS/HR Last Admin: 02/20/17 02:36 Dose: Not Given Piperacillin Sod/Tazobactam Sod (Zosyn 4.5gm Ivpb (Pre-Docked)) 100 mls @ 200 mls/hr IVPB Q8H-IV JOE PRN Reason: Protocol Last Admin: 02/20/17 02:37 Dose: 200 mls/hr Insulin Aspart (Novolog Vial Sliding Scale -) 1 vial SQ ACHS JOE PRN Reason: Protocol Last Admin: 02/20/17 06:08 Dose: Not Given Levothyroxine Sodium 100 mcg/ (Levothyroxine Sodium 75 mcg) 175 mcg PO DAILY@ 0700 [facility] Last Admin: 02/20/17 06:10 Dose: 175 mcg Mupirocin (Bactroban Ointment (For Decolonization) -) 1 applic NS BID [facility] Stop: 02/22/17 21:59 Last Admin: 02/19/17 21:22 Dose: 1 applic Ondansetron HCl (Zofran Injection) 4 mg IVPB Q6H PRN PRN Reason: NAUSEA Last Admin: 02/18/17 23:48 Dose: 4 mg Oxycodone HCl (Roxicodone -) 5 mg PO Q6H PRN PRN Reason: PAIN Last Admin: 02/19/17 23:40 Dose: 5 mg Pantoprazole Sodium (Protonix -) 40 mg PO DAILY [facility] Last Admin: 02/19/17 09:13 Dose: 40 mg Vancomycin HCl (Vancomycin Oral Solution) 125 mg PO Q6HPO [facility] Last Admin: 02/20/17 06:07 Dose: 125 mg Vancomycin HCl (Vancomycin (Pre-Docked)) 1,000 mg IVPB BID [facility] PRN Reason: Protocol Last Admin: 02/19/17 21:23 Dose: 1,000 mg ASSESSMENT AND PLAN: Polymicrobial Bacteremia Septic Shock Acute Kidney injury improving Lactic Acidosis resolved r/o Intra-abdominal sepsis/Cholecystitis Pancreatic Cancer s/p recent chemo HTN DM h/o DVT s/p IVC filter - continue antibiotics - f/u cultures - IVF to keep CVP 8-12 - titrate pressors to maintain MAP >65 - monitor urine output, creatinine - O2 to keep SpO2 >90% - continue anticoagulation - PO as tolerated - for transfer to [facility] if intervention planned as he is being prepped for possible Whipple - DVT/GI prophylaxis
[2017-02-20] MEDS: VANCOMYCIN 1 GRAM (PRE-DOCKED) 1,000 MG/250 ML BAG IVPB SCH ×2 (13:45→21:32)
[2017-02-20] MEDS ORDERED: NOREPINEPHRINE BITARTRATE 4 MG/4 ML ML IV ONE (14:10)
[2017-02-20] MEDS: NOREPINEPHRINE BITARTRATE 8,000 MCG in SODIUM CHLORIDE 0.45% 992 ML IV SCH ×2 (14:13→15:00)
--- NOTE | 2017-02-20 14:19 | PN ---
Teaching Attending Note Name of Resident: Kevin Katz ATTENDING PHYSICIAN STATEMENT I saw and evaluated the patient. I reviewed the resident's note and discussed the case with the resident. I agree with the resident's findings and plan as documented. SUBJECTIVE: no fever or chills, no abd pain . no n/V , feels better OBJECTIVE: NAD , AAOx3 CV : RRR, no MRG Lungs: CTAB ext : no edema ABd : soft , NT, ND , NL BS ASSESSMENT AND PLAN: 71 y/o gentleman with h/o pancreatic carcinoma s/p chemo , h/o DVT s/p IVC filter placement , and HTN who presented with ABd pain and diarrhea , and was found to have septic shock and bacteremia 1- Septic shock, likely due to acute cholecystitis . blood cx with Proteus and G + bacilli , further identification is pending . - case was d/w Dr. Mart who recommended against IR drainage in this institution as the pt is being prepared for Whipple procedure , unless pt condition worsens. - gave one dose of cipro in am - cont zosyn, pending further Identifiaction of bacteria - cont levophed ( requirements decreased from 16 to 9 mcg this am ) - cont po vanco prophylactically , while on Abx 2- ANIYAH : due tot sepsis , resolved 3- Transaminitis : could be due to sepsis and septic shock , also due to cholecystitis . will monitor closely 4- h/o pancreatic cancer. plan is for Whipple procedure at [facility] 5- h/o DVT , cont therapeutic dose of lovenox Dipo : accepted for a transfer to [place] , pending a bed. Case d/w Dr. Atkins and [facility] Critical Care Total Critical Care Time (in minutes): 40 Critical Care Statement: The care of this patient involved high complexity decision making to prevent further life threatening deterioration of the patient 's condition and/or to evalute & treat vital organ system(s) failure or risk of failure.
[2017-02-20] MEDS: SODIUM CHLORIDE 1,000 ML IV SCH (15:00)
[2017-02-20] MEDS: AMINO ACIDS 4.25%/D5W 1,000 ML IV SCH (15:00)
[2017-02-20] MEDS: POTASSIUM CHLORIDE 40 MEQ/30 ML UNIT DOSE CUP PO SCH ×2 (15:00→21:32)
--- NOTE | 2017-02-20 15:05 | PN ---
Physical Exam: SUBJECTIVE: Patient seen and examined at bedside still awaiting transfer to [place] OBJECTIVE: Vital Signs Period Temp Pulse Resp BP Sys/Pate Pulse Ox Last 24 Hr 98.6 F-99.6 F 66-88 15-22 95-129/61-78 98-99 GENERAL: Awake, alert, and fully oriented, in no acute distress. HEAD: Normal with no signs of trauma. EYES: Pupils equal, round and reactive to light, extraocular movements intact NECK: Normal range of motion LUNGS: Breath sounds equal, clear to auscultation bilaterally HEART: Regular rate and rhythm, normal S1 and S2 ABDOMEN: Soft, nontender, not distended, normoactive bowel sound. NEUROLOGICAL: Cranial nerves II-XII grossly intact. Normal speech. Laboratory Results - last 24 hr 02/19/17 02/19/17 02/20/17 16:27 21:39 05:05 WBC 27.2 H RBC 3.12 L Hgb 8.8 L Hct 27.6 L MCV 88.4 MCHC 32.0 RDW 17.6 H Plt Count 221 MPV 8.4 Neutrophils % 87.0 H Lymphocytes % 2.0 L D Monocytes % 2.0 L Eosinophils % 1.0 Band Neutrophils 8.0 Differential Comment Manual diff done Platelet Estimate Adequate Morphology Comment Slide scanned Sodium Potassium Chloride Carbon Dioxide Anion Gap BUN Creatinine Creat Clearance w eGFR POC Glucometer 115.51446 169.19564 Random Glucose Calcium Total Bilirubin AST ALT Alkaline Phosphatase Total Protein Albumin Vancomycin Trough 02/20/17 02/20/17 02/20/17 05:05 05:24 09:30 WBC RBC Hgb Hct MCV MCHC RDW Plt Count MPV Neutrophils % Lymphocytes % Monocytes % Eosinophils % Band Neutrophils Differential Comment Platelet Estimate Morphology Comment Sodium 144 Potassium 3.4 L Chloride 116 H Carbon Dioxide 19 L Anion Gap 9 BUN 18 D Creatinine 1.1 Creat Clearance w eGFR > 60 POC Glucometer 170.83705 Random Glucose 154 H Calcium 7.0 L Total Bilirubin 0.6 AST 65 H D ALT 134 H Alkaline Phosphatase 167 H D Total Protein 4.9 L Albumin 2.0 L Vancomycin Trough 15.525 H* 02/20/17 10:59 WBC RBC Hgb Hct MCV MCHC RDW Plt Count MPV Neutrophils % Lymphocytes % Monocytes % Eosinophils % Band Neutrophils Differential Comment Platelet Estimate Morphology Comment Sodium Potassium Chloride Carbon Dioxide Anion Gap BUN Creatinine Creat Clearance w eGFR POC Glucometer 179.53930 Random Glucose Calcium Total Bilirubin AST ALT Alkaline Phosphatase Total Protein Albumin Vancomycin Trough Active Medications Generic Name Dose Route Start Last Admin Trade Name Freq PRN Reason Stop Dose Admin Acetaminophen 650 mg 02/17/17 18:22 02/19/17 21:32 Tylenol - PO 650 mg Q6H PRN Administration FEVER OR PAIN Chlorhexidine Gluconate 1 applic 02/17/17 22:00 02/19/17 21:22 Hibiclens For Decolonization - TP 1 applic HS JOE Administration Enoxaparin Sodium 120 mg 02/17/17 22:00 02/19/17 21:22 Lovenox - SQ 120 mg HS JOE Administration Norepinephrine Bitartrate 8, 1,000 mls @ 37.5 mls/hr 02/17/17 15:30 02/20/17 14 :13 000 mcg/ Sodium Chloride IV 37.5 mls/hr TITR JOE Administration Protocol 5 MCG/MIN Vasopressin 50 units/ Sodium 100 mls @ 6 mls/hr 02/19/17 01:04 02/20/17 02:36 Chloride IVPB Not Given TITR JOE 3 UNITS/HR Piperacillin Sod/Tazobactam Sod 100 mls @ 200 mls/hr 02/18/17 10:00 02/20/17 02 :37 Zosyn 4.5gm Ivpb (Pre-Docked) IVPB 200 mls/hr Q8H-IV JOE Administration Protocol Amino Acids 1,000 mls @ 84 mls/hr 02/20/17 14:45 Clinimix - IV Q12H JOE Sodium Chloride 1,000 mls @ 50 mls/hr 02/20/17 14:33 Normal Saline - IV ASDIR JOE Insulin Aspart 1 vial 02/17/17 22:00 02/20/17 11:00 Novolog Vial Sliding Scale - SQ Not Given ACHS JOE Protocol Levothyroxine Sodium 100 mcg/ 175 mcg 02/18/17 07:00 02/20/17 06:10 Levothyroxine Sodium 75 mcg PO 175 mcg DAILY@0700 JOE Administration Mupirocin 1 applic 02/17/17 22:00 02/19/17 21:22 Bactroban Ointment (For Decolonization) - NS 02/22/17 21:59 1 applic BID JOE Administration Ondansetron HCl 4 mg 02/17/17 18:22 02/18/17 23:48 Zofran Injection IVPB 4 mg Q6H PRN Administration NAUSEA Oxycodone HCl 5 mg 02/17/17 18:22 02/19/17 23:40 Roxicodone - PO 5 mg Q6H PRN Administration PAIN Pantoprazole Sodium 40 mg 02/18/17 10:00 02/19/17 09:13 Protonix - PO 40 mg DAILY JOE Administration Potassium Chloride 40 meq 02/20/17 14:45 Kcl Oral Solution - PO 02/20/17 22:01 BID JOE Vancomycin HCl 125 mg 02/19/17 12:00 02/20/17 06:07 Vancomycin Oral Solution PO 125 mg Q6HPO JOE Administration Vancomycin HCl 1,000 mg 02/19/17 13:45 02/20/17 13:45 Vancomycin (Pre-Docked) IVPB 1,000 mg BID JOE Administration Protocol ASSESSMENT/PLAN: 71M with an extensive PMH presents to the ED with septic shock and diarrhea: Septic shock: patient was febrile tachycardic and hypotensive. Despite fluid resuscitation he remained hypotensive on admission. Also has evidence of end organ damage as evidenced by ANIYAH. sepsis syndrome Patient had RUQ ultrasound initially read as negative for acute cholecystitis but called by radiologist that patient does have acute cholecystitis. it is very possible patient is bacteremic and septic from acute cholecystitis. pending transfer to [place] accepted by hospital account liaison Dr. Mo ID consult appreciated on Vanco IV and PO and zosyn given one dose of ciprofloxacin to double cover for gram negatives gram negative bacteremia/ gram positive cocci in chains-awaiting identification of organism. Proteus villa sensitive grew so far still awaiting identification of 2 other organisms Central line for CVP monitoring Levophed to keep MAP >65-bein weaned at this time vasopressin titrated off IVF pain control f/u stool studies UA WNL Strict I/O tylenol PRN fever antiemetics History of DVT: continue lovenox 120mg hs s/p IVC filter Pancreatic Ca: inpatient follow up with Dr. Luque spoke to Dr. Luque again today and he is expecting the patient at [place] Hypothyroidism: continue synthroid 175mcg Qam DM: Hold oral hypoglycemics ISS fingersticks ACHS HLD: not on meds no issues FEN: NS @ 100ml/hr and boluses PRN no electrolyte issues NPO in case patient needs procedure-Clinimix for IV nutrition for now PPx: Lovenox therapeutic dosing Protonix PT consult Visit type - Emergency Visit Emergency Visit: Yes ED Registration Date: 02/17/17 Care time: The patient presented to the Emergency Department on the above date and was hospitalized for further evaluation of their emergent condition. - New Patient This patient is new to me today: No - Critical Care Critical Care patient: Yes Total Critical Care Time (in minutes): 45 Critical Care Statement: The care of this patient involved high complexity decision making to prevent further life threatening deterioration of the patient 's condition and/or to evalute & treat vital organ system(s) failure or risk of failure.
[2017-02-20] MEDS: ACETAMINOPHEN 325 MG TABLET (FP) PO PRN (18:18)
[2017-02-20] MEDS: ENOXAPARIN NA (PORCINE) 120 MG/0.8 ML DISP.SYRIN SQ SCH (21:32)
[2017-02-20] MEDS: CHLORHEXIDINE GLUCONATE 4% CLEANSER FOR DECOLONIZATION TP SCH (21:32)
[2017-02-20] MEDS: oxyCODONE HCL 5 MG TABLET PO PRN (21:33)
[2017-02-20] MEDS ORDERED: LORazepam 0.5 MG TABLET ONE (22:32)
[2017-02-21] MEDS: PIPERACILLIN/TAZOB 4.5 GM 100 ML IVPB SCH ×3 (02:55→18:30)
[2017-02-21] MEDS: AMINO ACIDS 4.25%/D5W 1,000 ML IV SCH ×2 (03:19→18:00)
[2017-02-21 06:02] LABS: MCH 28.5 pg (25.7-33.7); MCHC 31.9 g/dl (32.0-35.9); MEAN CELL VOLUME 89.3 fl (80-96); MEAN PLT VOLUME 8.3 fl (7.5-11.1); PLATELET COUNT 187 K/MM3 (134-434); RDW 17.7 % (11.9-15.9); WHITE BLOOD COUNT 16.7 K/mm3 (4.0-10.0)
[2017-02-21] MEDS: VANCOMYCIN 250 MG/5 ML ORAL SOLUTION PO SCH (06:10)
[2017-02-21] MEDS: INSULIN SLIDING SCALE (NOVOLOG) 1 VIAL SQ SCH ×4 (06:10→22:28)
[2017-02-21] MEDS ORDERED: LEVOTHYROXINE NA 100 MCG TABLET (FP) ONE (06:11)
[2017-02-21] MEDS ORDERED: LEVOTHYROXINE NA 75 MCG TABLET (FP) ONE (06:12)
[2017-02-21] MEDS: LEVOTHYROXINE 100 MCG, LEVOTHYROXINE 75 MCG PO SCH (06:12)
[2017-02-21 06:17] LABS: INR 1.03 (0.82-1.09); PROTHROMBIN TIME (PATIENT) 11.3 SEC (9.98-11.88)
[2017-02-21 06:19] LABS: ACTIVATED PTT 35.1 SECONDS (26.9-34.4)
[2017-02-21 06:34] LABS: ALBUMIN 1.9 g/dl (3.4-5.0); ANION GAP 9 (8-16); BILIRUBIN,TOTAL 0.7 mg/dL (0.2-1.0); CALCIUM 7.3 mg/dL (8.5-10.1); CO2 19 mmol/L (21-32); GLUCOSE,RANDOM 205 mg/dL (74-106); MAGNESIUM 1.7 mg/dL (1.8-2.4); SGOT/AST 23 U/L (15-37); SGPT/ALT 81 U/L (12-78); TOT PROT 4.8 g/dl (6.4-8.2)
[2017-02-21 06:39] LABS: ALK PHOS 228 U/L (45-117); CREATININE 0.9 mg/dL (0.7-1.3)
[2017-02-21 06:51] LABS: PHOSPHOROUS 0.7 mg/dL (2.5-4.9)
[2017-02-21] MEDS ORDERED: POTASSIUM PHOSPHATE 30 MM in DEXTROSE 5%-WATER - 250 ML IVPB ONE (07:07)
--- NOTE | 2017-02-21 07:10 | PN ---
Physical Exam: SUBJECTIVE: Patient seen and examined at bedside in ICU. patient off pressors, off oxygen, afebrile, wbc 27k to 16.7k, feeling well, no abdominal pain, reports abd fullness or bloating, non bloody two liquid bowel movement today. Denies cp, sob, chills, fevers, n/v/. Low Phos, Mg Ordered Mag PO, Kphos IV BP stable, CXR showing OBJECTIVE: Vital Signs Period Temp Pulse Resp BP Sys/Pate Pulse Ox Last 24 Hr 97.9 F-98.6 F 66-88 14-20 87-129/55-77 98-99 GENERAL: The patient is awake, alert, and fully oriented, in no acute distress. HEAD: Normal with no signs of trauma. EYES: extraocular movements intact, sclera anicteric, conjunctiva clear. ENT: Ears normal, nares patent, oropharynx clear without exudates, Dry mucous membranes membranes. NECK: Trachea midline, full range of motion, supple. LUNGS: decreased BS bilateral bases, no crackles or extra sounds. HEART: Regular rate and rhythm, S1, S2 without murmur, rub or gallop. ABDOMEN: Soft, nontender, mild distension improved now normal, hyperactive bowel sounds, no guarding, no rebound, no hepatosplenomegaly, no masses. EXTREMITIES: 2+ pulses, warm, well-perfused, no edema. right hand fracture 2nd metatarcel no dressing dressing. NEUROLOGICAL: Cranial nerves II through XII grossly intact. Normal speech, gait not observed. PSYCH: Normal mood, normal affect. SKIN: Warm, dry, normal turgor, no rashes or lesions noted Laboratory Results - last 24 hr 02/20/17 02/20/17 02/20/17 05:05 09:30 10:59 WBC RBC Hgb Hct MCV MCHC RDW Plt Count MPV Neutrophils % 87.0 H Lymphocytes % 2.0 L D Monocytes % 2.0 L Eosinophils % 1.0 Band Neutrophils 8.0 Differential Comment Manual diff done Platelet Estimate Adequate Morphology Comment Slide scanned INR PTT (Actin FS) Sodium Potassium Chloride Carbon Dioxide Anion Gap BUN Creatinine Creat Clearance w eGFR POC Glucometer 179.91018 Random Glucose Calcium Phosphorus Magnesium Total Bilirubin AST ALT Alkaline Phosphatase Total Protein Albumin Vancomycin Trough 15.525 H* 02/20/17 02/20/17 02/21/17 18:09 22:10 05:35 WBC 16.7 H D RBC 3.13 L Hgb 8.9 L Hct 27.9 L MCV 89.3 MCHC 31.9 L RDW 17.7 H Plt Count 187 MPV 8.3 Neutrophils % Lymphocytes % Monocytes % Eosinophils % Band Neutrophils Differential Comment Platelet Estimate Morphology Comment INR PTT (Actin FS) Sodium Potassium Chloride Carbon Dioxide Anion Gap BUN Creatinine Creat Clearance w eGFR POC Glucometer 201.87467 180.78163 Random Glucose Calcium Phosphorus Magnesium Total Bilirubin AST ALT Alkaline Phosphatase Total Protein Albumin Vancomycin Trough 02/21/17 02/21/17 02/21/17 05:35 05:35 05:41 WBC RBC Hgb Hct MCV MCHC RDW Plt Count MPV Neutrophils % Lymphocytes % Monocytes % Eosinophils % Band Neutrophils Differential Comment Platelet Estimate Morphology Comment INR 1.03 PTT (Actin FS) 35.1 H Sodium 144 Potassium 3.7 Chloride 116 H Carbon Dioxide 19 L Anion Gap 9 BUN 16 Creatinine 0.9 Creat Clearance w eGFR > 60 POC Glucometer [phone] Random Glucose 205 H D Calcium 7.3 L Phosphorus 0.7 L* Magnesium 1.7 L D Total Bilirubin 0.7 AST 23 D ALT 81 H D Alkaline Phosphatase 228 H D Total Protein 4.8 L Albumin 1.9 L Vancomycin Trough Active Medications Generic Name Dose Route Start Last Admin Trade Name Freq PRN Reason Stop Dose Admin Acetaminophen 650 mg 02/17/17 18:22 02/20/17 18:18 Tylenol - PO 650 mg Q6H PRN Administration FEVER OR PAIN Chlorhexidine Gluconate 1 applic 02/17/17 22:00 02/20/17 21:32 Hibiclens For Decolonization - TP 1 applic HS JOE Administration Enoxaparin Sodium 120 mg 02/17/17 22:00 02/20/17 21:32 Lovenox - SQ 120 mg HS JOE Administration Piperacillin Sod/Tazobactam Sod 100 mls @ 200 mls/hr 02/18/17 10:00 02/21/17 02 :55 Zosyn 4.5gm Ivpb (Pre-Docked) IVPB 200 mls/hr Q8H-IV JOE Administration Protocol Amino Acids 1,000 mls @ 84 mls/hr 02/20/17 14:45 02/21/17 03:19 Clinimix - IV 84 mls/hr Q12H JOE Administration Sodium Chloride 1,000 mls @ 50 mls/hr 02/20/17 14:33 02/20/17 15:00 Normal Saline - IV 50 mls/hr ASDIR JOE Administration Potassium Phosphate 30 mm/ 260 mls @ 62.5 mls/hr 02/21/17 07:07 Dextrose IVPB 02/21/17 11:16 ONCE ONE Insulin Aspart 1 vial 02/17/17 22:00 02/21/17 06:10 Novolog Vial Sliding Scale - SQ 2 units ACHS JOE Administration Protocol Levothyroxine Sodium 100 mcg/ 175 mcg 02/18/17 07:00 02/21/17 06:12 Levothyroxine Sodium 75 mcg PO 175 mcg DAILY@0700 JOE Administration Magnesium Oxide 400 mg 02/21/17 07:15 Mag-Ox - PO 02/21/17 11:16 Q4H JOE Mupirocin 1 applic 02/17/17 22:00 02/20/17 21:32 Bactroban Ointment (For Decolonization) - NS 02/22/17 21:59 1 applic BID JOE Administration Ondansetron HCl 4 mg 02/17/17 18:22 02/18/17 23:48 Zofran Injection IVPB 4 mg Q6H PRN Administration NAUSEA Oxycodone HCl 5 mg 02/17/17 18:22 02/20/17 21:33 Roxicodone - PO 5 mg Q6H PRN Administration PAIN Pantoprazole Sodium 40 mg 02/18/17 10:00 02/20/17 10:30 Protonix - PO 40 mg DAILY JOE Administration Vancomycin HCl 125 mg 02/19/17 12:00 02/21/17 06:10 Vancomycin Oral Solution PO 125 mg Q6HPO JOE Administration Vancomycin HCl 1,000 mg 02/19/17 13:45 02/20/17 21:32 Vancomycin (Pre-Docked) IVPB 1,000 mg BID JOE Administration Protocol ASSESSMENT/PLAN: Pt is a 71yr old man with PMHx of pancreatic cancer (diagnosed 09/16) s/p 6 round chemo therapy (last one 3-4 weeks ago), HTN, HLD, DM, hypothyroidism in setting of thyroid resection, DVT and GIB s/p billiary tree stenting, cholithiases , recent c. diff. Now in the ICU for management of septic shock , likely abdominal source from possible gallbladder. ID: Septic shock: preliminary Bcx 2 organisms(anaerobic gram neg roni and anaerobic gram + cocci in chains, +Proteus ) most likely source gallbladder, secondary hxs diverticulitis, third source from port cath(less likely gram neg rods and no sign of infection), -awaiting identification of anaerobic organism, Proteus villa sensitive. - two liquid BM today maybe secondary to antibiotics. -wbc- improving 27K to 16K today -off pressors -decreased fluids- will monitor BP, patient NPO will reconcier restarting fluids tomorrow. -US- reread acute cholecystitis. -on Vanco IV and PO and zosyn -continue one dose of ciprofloxacin to double cover for gram negatives per primary team. -IVF to keep CVP 8-12 -Central line for CVP monitoring -titrate pressors to maintain MAP >65 -monitor urine output, creatinine -O2 to keep SpO2 >90% Pulmonary: decrease breath sounds bilaterally at bases, CXR showed inc congestion, saturating well off oxygen -decreased fluids- will monitor BP, patient NPO will reconcier restarting fluids tomorrow. -incentive spirometery -Nebulizers prn -f/u repeat chest xray GI Pancreatic Ca: [facility], transfer possibly today. -whipples procedure plan in the same hospital. -US- reread acute cholecystitis. - Antiemetics - pain control Renal: prerenal azotemia 2/2 hypo-perfusion due to septic shock, resolved ON CT : Kidneys: A 19 x 17 2 mm mass arises from the upper pole of the left kidney. There are areas that don't measure the density of simple cysts in this needs to be correlated with a renal ultrasound -IVF as tolerated -Replete electrolytes prn -Strict I/Os Cardio -f/u enzymes -Continue Levophed for MAP 65-75 -Strict I/O HLD: -not on meds -no issues Hemotology: -h/o DVT s/p IVC filter -continue AC Endo:DM -Hold oral hypoglycemics -ISS -fingersticks ACHS Hypothyroidism: -Continue home synthroid Neuro -Pain management (opioid allergy) Hypokalemia: resolved, secondary to IV fluid and diarrhea will check labs in AM Hypomagnesemia and hypophosphatemia KCL IV Mag PO Prophylactic: -DVT (hx of DVT)- continue Lovenox 120mg hs -Continue home florastor -Continue Protonix -PT consult, bed to chair FEN: d/c NS and d/c Clinimix electrolyte monitor and replete as needed, NPO Dispo: transfer has been initiated and patient excepted in [facility], awaiting a bed and 24 hours off of pressors. . Visit type - Emergency Visit Emergency Visit: Yes ED Registration Date: 02/17/17 Care time: The patient presented to the Emergency Department on the above date and was hospitalized for further evaluation of their emergent condition. - New Patient This patient is new to me today: No - Critical Care Critical Care patient: Yes Total Critical Care Time (in minutes): 43 Critical Care Statement: The care of this patient involved high complexity decision making to prevent further life threatening deterioration of the patient 's condition and/or to evalute & treat vital organ system(s) failure or risk of failure.
[2017-02-21] MEDS: MAGNESIUM OXIDE 400 MG TABLET (FP) PO SCH ×2 (08:00→11:51)
--- NOTE | 2017-02-21 09:23 | PN ---
Progress Note (short form) - Note Progress Note: Surgery- Dr. Mart Patient seen and examined, discussed with ICU resident. Patient off pressors, WBC improving. Patient states he is feeling better, denies abdominal pain. Denies F/C/N/V. Last Vital Signs Temp Pulse Resp BP Pulse Ox 98.6 F 68 16 114/69 98 02/21/17 06:00 02/21/17 07:00 02/21/17 07:00 02/21/17 07:00 02/20/17 19:54 CBC, BMP 02/21/17 05:35 02/21/17 05:35 WBC 16.7 from 27.2 Exam: Gen: NAD Abd: soft, nontender A/P Afebrile, WBC improving, no RUQ pain, Continue NPO (may have few ice chips) and antibiotics Await transfer
[2017-02-21] MEDS: VANCOMYCIN 1 GRAM (PRE-DOCKED) 1,000 MG/250 ML BAG IVPB SCH (09:54)
[2017-02-21] MEDS: MUPIROCIN 2% TOPICAL OINTMENT FOR DECOLONIZATION NS SCH ×2 (09:55→22:27)
[2017-02-21] MEDS: NAPH,MB-DB/K PH,MBDB POWDER PACKET PO SCH ×2 (09:55→22:28)
[2017-02-21] MEDS: PANTOPRAZOLE 40 MG TABLET (FP) PO SCH (09:56)
--- NOTE | 2017-02-21 11:07 | PN ---
Progress Note, Physician Chief Complaint: ID Remains stable Vancomycin and Zosyn Off pressors - Current Medication List Current Medications: Active Medications Acetaminophen (Tylenol -) 650 mg PO Q6H PRN PRN Reason: FEVER OR PAIN Last Admin: 02/20/17 18:18 Dose: 650 mg Chlorhexidine Gluconate (Hibiclens For Decolonization -) 1 applic TP HS [facility] Last Admin: 02/20/17 21:32 Dose: 1 applic Enoxaparin Sodium (Lovenox -) 120 mg SQ HS [facility] Last Admin: 02/20/17 21:32 Dose: 120 mg Piperacillin Sod/Tazobactam Sod (Zosyn 4.5gm Ivpb (Pre-Docked)) 100 mls @ 200 mls/hr IVPB Q8H-IV JOE PRN Reason: Protocol Last Admin: 02/21/17 09:56 Dose: 200 mls/hr Amino Acids (Clinimix -) 1,000 mls @ 84 mls/hr IV Q12H [facility] Last Admin: 02/21/17 03:19 Dose: 84 mls/hr Sodium Chloride (Normal Saline -) 1,000 mls @ 50 mls/hr IV ASDIR [facility] Last Admin: 02/20/17 15:00 Dose: 50 mls/hr Potassium Phosphate 30 mm/ (Dextrose) 260 mls @ 62.5 mls/hr IVPB ONCE ONE Stop: 02/21/17 11:16 Last Admin: 02/21/17 08:00 Dose: 62.5 mls/hr Insulin Aspart (Novolog Vial Sliding Scale -) 1 vial SQ ACHS [facility] PRN Reason: Protocol Last Admin: 02/21/17 06:10 Dose: 2 units Levothyroxine Sodium 100 mcg/ (Levothyroxine Sodium 75 mcg) 175 mcg PO DAILY@ 0700 [facility] Last Admin: 02/21/17 06:12 Dose: 175 mcg Magnesium Oxide (Mag-Ox -) 400 mg PO Q4H [facility] Stop: 02/21/17 11:16 Last Admin: 02/21/17 08:00 Dose: 400 mg Mupirocin (Bactroban Ointment (For Decolonization) -) 1 applic NS BID [facility] Stop: 02/22/17 21:59 Last Admin: 02/21/17 09:55 Dose: 1 applic Ondansetron HCl (Zofran Injection) 4 mg IVPB Q6H PRN PRN Reason: NAUSEA Last Admin: 02/18/17 23:48 Dose: 4 mg Oxycodone HCl (Roxicodone -) 5 mg PO Q6H PRN PRN Reason: PAIN Last Admin: 02/20/17 21:33 Dose: 5 mg Pantoprazole Sodium (Protonix -) 40 mg PO DAILY [facility] Last Admin: 02/21/17 09:56 Dose: 40 mg Potassium Phos/Sodium Phos (Phos-Nak Packet -) 1 packet PO BID [facility] Stop: 02/21/17 22:01 Last Admin: 02/21/17 09:55 Dose: 1 packet Vancomycin HCl (Vancomycin Oral Solution) 125 mg PO Q6HPO [facility] Last Admin: 02/21/17 06:10 Dose: 125 mg Vancomycin HCl (Vancomycin (Pre-Docked)) 1,000 mg IVPB BID [facility] PRN Reason: Protocol Last Admin: 02/21/17 09:54 Dose: 1,000 mg - Objective Vital Signs: Vital Signs Temperature 98.6 F 02/21/17 06:00 Pulse Rate 68 02/21/17 07:00 Respiratory Rate 16 02/21/17 07:00 Blood Pressure 114/69 02/21/17 07:00 O2 Sat by Pulse Oximetry (%) 98 02/20/17 19:54 Constitutional: Yes: No Distress Neck: Yes: WNL, Supple Cardiovascular: Yes: S1, S2 Respiratory: Yes: WNL, Regular, CTA Bilaterally Gastrointestinal: Yes: Soft. No: Tenderness Edema: No Labs: CBC, BMP 02/21/17 05:35 02/21/17 05:35 INR, PTT INR 1.03 (0.82-1.09) 02/21/17 05:35 Problem List - Problems (1) Severe sepsis Code(s): A41.9 - SEPSIS, UNSPECIFIED ORGANISM R65.20 - SEVERE SEPSIS WITHOUT SEPTIC SHOCK (2) Polymicrobial septicemia Code(s): A41.9 - SEPSIS, UNSPECIFIED ORGANISM Assessment/Plan Microbiology 02/17/17 15:31 Urine - Urine Clean Catch Urine Culture - Final NO GROWTH OBTAINED 02/17/17 13:07 Blood - Central Line Blood Culture - Final Proteus Mirabilis 02/17/17 13:07 Blood - Central Line Blood Culture - Preliminary Anaerobic Gram Neg Bacilli Anaerobic Cocci Laboratory Tests 02/20/17 02/21/17 02/21/17 05:05 05:35 05:35 WBC 27.2 H 16.7 H D Hgb 8.9 L Hct 27.9 L Plt Count 187 INR 1.03 Total Bilirubin Alkaline Phosphatase 02/21/17 05:35 WBC Hgb Hct Plt Count INR Total Bilirubin 0.7 Alkaline Phosphatase 228 H D Assessment Polymicrobial bacteremia Assume gallbladder source Surgery following Anaerobic blood cultures with Proteus Plan Stop vancomycin Continue Zosyn as ordered Add metronidazole Transfer pending Mago SMITH
[2017-02-21] MEDS: METRONIDAZOLE 500 MG PREMIXED 100 ML IVPB SCH ×2 (11:51→18:00)
--- NOTE | 2017-02-21 12:48 | PN ---
Teaching Attending Note Name of Resident: Jordana Estrella ATTENDING PHYSICIAN STATEMENT I saw and evaluated the patient. I reviewed the resident's note and discussed the case with the resident. I agree with the resident's findings and plan as documented. SUBJECTIVE: Pt seen and examined in the ICU. Off pressors. No fevers or chills. No abdominal pain, nausea or vomiting. OBJECTIVE: Last Vital Signs Temp Pulse Resp BP Pulse Ox 98.6 F 68 16 114/69 98 02/21/17 06:00 02/21/17 07:00 02/21/17 07:00 02/21/17 07:00 02/20/17 19:54 Intake & Output 02/18/17 02/19/17 02/20/17 02/21/17 23:59 23:59 23:59 23:59 Intake Total 7924 5747 2075 1808 Output Total 600 3750 3400 3300 Balance 7084 8789 -6877 -9747 Weight 198 lb 8 oz 205 lb 4.006 oz 203 lb 206 lb 3 oz Gen: more awake, alert Heart: RRR Lung: decreased breath sounds at the bases Abd: soft, nontender Ext: no edema CBC, BMP 02/21/17 05:35 02/21/17 05:35 Active Medications Acetaminophen (Tylenol -) 650 mg PO Q6H PRN PRN Reason: FEVER OR PAIN Last Admin: 02/20/17 18:18 Dose: 650 mg Chlorhexidine Gluconate (Hibiclens For Decolonization -) 1 applic TP HS [facility] Last Admin: 02/20/17 21:32 Dose: 1 applic Enoxaparin Sodium (Lovenox -) 120 mg SQ HS [facility] Last Admin: 02/20/17 21:32 Dose: 120 mg Piperacillin Sod/Tazobactam Sod (Zosyn 4.5gm Ivpb (Pre-Docked)) 100 mls @ 200 mls/hr IVPB Q8H-IV JOE PRN Reason: Protocol Last Admin: 02/21/17 09:56 Dose: 200 mls/hr Amino Acids (Clinimix -) 1,000 mls @ 84 mls/hr IV Q12H JOE Last Admin: 02/21/17 03:19 Dose: 84 mls/hr Sodium Chloride (Normal Saline -) 1,000 mls @ 50 mls/hr IV ASDIR JOE Last Admin: 02/20/17 15:00 Dose: 50 mls/hr Metronidazole (Flagyl 500mg Premixed Ivpb -) 100 mls @ 100 mls/hr IVPB Q8H-IV [facility] Last Admin: 02/21/17 11:51 Dose: 100 mls/hr Insulin Aspart (Novolog Vial Sliding Scale -) 1 vial SQ ACHS [facility] PRN Reason: Protocol Last Admin: 02/21/17 11:52 Dose: 2 units Levothyroxine Sodium 100 mcg/ (Levothyroxine Sodium 75 mcg) 175 mcg PO DAILY@ 0700 [facility] Last Admin: 02/21/17 06:12 Dose: 175 mcg Mupirocin (Bactroban Ointment (For Decolonization) -) 1 applic NS BID [facility] Stop: 02/22/17 21:59 Last Admin: 02/21/17 09:55 Dose: 1 applic Ondansetron HCl (Zofran Injection) 4 mg IVPB Q6H PRN PRN Reason: NAUSEA Last Admin: 02/18/17 23:48 Dose: 4 mg Oxycodone HCl (Roxicodone -) 5 mg PO Q6H PRN PRN Reason: PAIN Last Admin: 02/20/17 21:33 Dose: 5 mg Pantoprazole Sodium (Protonix -) 40 mg PO DAILY [facility] Last Admin: 02/21/17 09:56 Dose: 40 mg Potassium Phos/Sodium Phos (Phos-Nak Packet -) 1 packet PO BID [facility] Stop: 02/21/17 22:01 Last Admin: 02/21/17 09:55 Dose: 1 packet ASSESSMENT AND PLAN: Polymicrobial Bacteremia Septic Shock improving Acute Kidney injury improving Lactic Acidosis resolved r/o Intra-abdominal sepsis/Cholecystitis Pancreatic Cancer s/p recent chemo HTN DM h/o DVT s/p IVC filter - continue antibiotics - f/u cultures - IVF to keep CVP 8-12 - monitoring off pressors, maintain MAP >65 - monitor urine output, creatinine - O2 to keep SpO2 >90% - continue anticoagulation - PO as tolerated - for transfer to [facility] if intervention planned as he is being prepped for possible Whipple - DVT/GI prophylaxis
--- NOTE | 2017-02-21 14:06 | PN ---
Teaching Attending Note Name of Resident: Kevin Katz ATTENDING PHYSICIAN STATEMENT I saw and evaluated the patient. I reviewed the resident's note and discussed the case with the resident. I agree with the resident's findings and plan as documented. SUBJECTIVE: no fever or chills , no abd pain . no events over night OBJECTIVE: NAD , AAOx3 CV : RRR, no MRG Lungs: CTAB ext : no edema ABd : soft , NT, ND , NL BS ASSESSMENT AND PLAN: 71 y/o gentleman with h/o pancreatic carcinoma s/p chemo , h/o DVT s/p IVC filter placement , and HTN who presented with ABd pain and diarrhea , and was found to have septic shock and bacteremia 1- Septic shock, likely due to acute cholecystitis . follow final ID of blood c . leukocytosis and BP are better - cont medical management pending a transfer to [place]. - cont Zosyn - off pressors , IVF were stopped this am - will resume IVF to keep CVP > 8 ( was 4 this am ) - resume clinimix - vanco was stopped 2- ANIYAH : due tot sepsis , resolved 3- Transaminitis : could be due to sepsis and septic shock , also due to cholecystitis . will monitor closely 4- h/o pancreatic cancer. plan is for Whipple procedure at [place] 5- h/o DVT , cont therapeutic dose of lovenox Dispo : Transfer t [place] is still pending
--- NOTE | 2017-02-21 15:22 | PN ---
Addendum entered and electronically signed by Kevin Katz, CHERY 02/21/17 15:25: flagyl added Original Note: Physical Exam: SUBJECTIVE: Patient seen and examined at bedside feels well clinically improving OBJECTIVE: Vital Signs Period Temp Pulse Resp BP Sys/Pate Pulse Ox Last 24 Hr 97.9 F-98.6 F 68-76 14-20 87-119/55-70 98-100 GENERAL: Awake, alert, and fully oriented, in no acute distress. HEAD: Normal with no signs of trauma. EYES: Pupils equal, round and reactive to light, extraocular movements intact NECK: Normal range of motion LUNGS: Breath sounds equal, clear to auscultation bilaterally HEART: Regular rate and rhythm, normal S1 and S2 ABDOMEN: Soft, nontender, not distended, normoactive bowel sound. NEUROLOGICAL: Cranial nerves II-XII grossly intact. Normal speech. Laboratory Results - last 24 hr 02/20/17 02/20/17 02/21/17 18:09 22:10 05:35 WBC 16.7 H D RBC 3.13 L Hgb 8.9 L Hct 27.9 L MCV 89.3 MCHC 31.9 L RDW 17.7 H Plt Count 187 MPV 8.3 INR PTT (Actin FS) Sodium Potassium Chloride Carbon Dioxide Anion Gap BUN Creatinine Creat Clearance w eGFR POC Glucometer 201.50142 180.72823 Random Glucose Calcium Phosphorus Magnesium Total Bilirubin AST ALT Alkaline Phosphatase Total Protein Albumin 02/21/17 02/21/17 02/21/17 05:35 05:35 05:41 WBC RBC Hgb Hct MCV MCHC RDW Plt Count MPV INR 1.03 PTT (Actin FS) 35.1 H Sodium 144 Potassium 3.7 Chloride 116 H Carbon Dioxide 19 L Anion Gap 9 BUN 16 Creatinine 0.9 Creat Clearance w eGFR > 60 POC Glucometer 220.58168 Random Glucose 205 H D Calcium 7.3 L Phosphorus 0.7 L* Magnesium 1.7 L D Total Bilirubin 0.7 AST 23 D ALT 81 H D Alkaline Phosphatase 228 H D Total Protein 4.8 L Albumin 1.9 L 02/21/17 11:40 WBC RBC Hgb Hct MCV MCHC RDW Plt Count MPV INR PTT (Actin FS) Sodium Potassium Chloride Carbon Dioxide Anion Gap BUN Creatinine Creat Clearance w eGFR POC Glucometer 235.15324 Random Glucose Calcium Phosphorus Magnesium Total Bilirubin AST ALT Alkaline Phosphatase Total Protein Albumin Active Medications Generic Name Dose Route Start Last Admin Trade Name Freq PRN Reason Stop Dose Admin Acetaminophen 650 mg 02/17/17 18:22 02/20/17 18:18 Tylenol - PO 650 mg Q6H PRN Administration FEVER OR PAIN Chlorhexidine Gluconate 1 applic 02/17/17 22:00 02/20/17 21:32 Hibiclens For Decolonization - TP 1 applic HS JOE Administration Enoxaparin Sodium 120 mg 02/17/17 22:00 02/20/17 21:32 Lovenox - SQ 120 mg HS JOE Administration Piperacillin Sod/Tazobactam Sod 100 mls @ 200 mls/hr 02/18/17 10:00 02/21/17 09 :56 Zosyn 4.5gm Ivpb (Pre-Docked) IVPB 200 mls/hr Q8H-IV JOE Administration Protocol Amino Acids 1,000 mls @ 84 mls/hr 02/20/17 14:45 02/21/17 03:19 Clinimix - IV 84 mls/hr Q12H JOE Administration Sodium Chloride 1,000 mls @ 50 mls/hr 02/20/17 14:33 02/20/17 15:00 Normal Saline - IV 50 mls/hr ASDIR JOE Administration Metronidazole 100 mls @ 100 mls/hr 02/21/17 11:30 02/21/17 11:51 Flagyl 500mg Premixed Ivpb - IVPB 100 mls/hr Q8H-IV JOE Administration Insulin Aspart 1 vial 02/17/17 22:00 02/21/17 11:52 Novolog Vial Sliding Scale - SQ 2 units ACHS JOE Administration Protocol Levothyroxine Sodium 100 mcg/ 175 mcg 02/18/17 07:00 02/21/17 06:12 Levothyroxine Sodium 75 mcg PO 175 mcg DAILY@0700 JOE Administration Mupirocin 1 applic 02/17/17 22:00 02/21/17 09:55 Bactroban Ointment (For Decolonization) - NS 02/22/17 21:59 1 applic BID JOE Administration Ondansetron HCl 4 mg 02/17/17 18:22 02/18/17 23:48 Zofran Injection IVPB 4 mg Q6H PRN Administration NAUSEA Oxycodone HCl 5 mg 02/17/17 18:22 02/20/17 21:33 Roxicodone - PO 5 mg Q6H PRN Administration PAIN Pantoprazole Sodium 40 mg 02/18/17 10:00 02/21/17 09:56 Protonix - PO 40 mg DAILY JOE Administration Potassium Phos/Sodium Phos 1 packet 02/21/17 10:00 02/21/17 09:55 Phos-Nak Packet - PO 02/21/17 22:01 1 packet BID JOE Administration ASSESSMENT/PLAN: 71M with an extensive PMH presents to the ED with septic shock and diarrhea: Septic shock: patient was febrile tachycardic and hypotensive. Despite fluid resuscitation he remained hypotensive on admission. Also has evidence of end organ damage as evidenced by ANIYAH. sepsis syndrome Patient had RUQ ultrasound initially read as negative for acute cholecystitis but called by radiologist that patient does have acute cholecystitis. it is very possible patient is bacteremic and septic from acute cholecystitis. pending transfer to [place] accepted by commercial photographer Dr. Mo ID consult appreciated on Vanco IV and PO and zosyn stop vancomycing PO continue PO vanco and IV zosyn given one dose of ciprofloxacin to double cover for gram negatives gram negative bacteremia/ gram positive cocci in chains-awaiting identification of organism. Proteus villa sensitive grew so far still awaiting identification of 2 other organisms off pressors for 24hours stop IVF excellent urine output pain control f/u stool studies UA WNL Strict I/O tylenol PRN fever antiemetics History of DVT: continue lovenox 120mg hs s/p IVC filter Pancreatic Ca: inpatient follow up with Dr. Luque spoke to Dr. Luque again today and he is expecting the patient at [place] Hypothyroidism: continue synthroid 175mcg Qam DM: Hold oral hypoglycemics ISS fingersticks ACHS HLD: not on meds no issues FEN: stop IVF no electrolyte issues CLD-Clinimix for IV nutrition for now PPx: Lovenox therapeutic dosing Protonix PT consult Patient can be transferred to telemetry. Patient accepted to [place] surgical step down unit accepted by surgeon Dr. Petersen Visit type - Emergency Visit Emergency Visit: Yes ED Registration Date: 02/17/17 Care time: The patient presented to the Emergency Department on the above date and was hospitalized for further evaluation of their emergent condition. - New Patient This patient is new to me today: No - Critical Care Critical Care patient: No
[2017-02-21] MEDS: SODIUM CHLORIDE 1,000 ML IV SCH (18:00)
[2017-02-21] MEDS ORDERED: LORAZEPAM CARPU-JECT 2 MG/ML DISP.SYRIN IVPUSH ONE (22:05)
[2017-02-21] MEDS: oxyCODONE HCL 5 MG TABLET PO PRN (22:11)
[2017-02-21] MEDS: ACETAMINOPHEN 325 MG TABLET (FP) PO PRN (22:12)
[2017-02-21] MEDS: CHLORHEXIDINE GLUCONATE 4% CLEANSER FOR DECOLONIZATION TP SCH (22:27)
[2017-02-21] MEDS: ENOXAPARIN NA (PORCINE) 120 MG/0.8 ML DISP.SYRIN SQ SCH (22:28)
[2017-02-22] MEDS: PIPERACILLIN/TAZOB 4.5 GM 100 ML IVPB SCH (01:29)
[2017-02-22] MEDS: METRONIDAZOLE 500 MG PREMIXED 100 ML IVPB SCH (01:29)
[2017-02-22 02:17] VITALS: BP 126/77; PULSE 72; TEMP 98.4
--- NOTE | 2017-02-22 10:15 | EKG ---
Test Reason : Blood Pressure : / mmHG Vent. Rate : 118 BPM Atrial Rate : 118 BPM P-R Int : 136 ms QRS Dur : 122 ms QT Int : 330 ms P-R-T Axes : 036 -62 059 degrees QTc Int : 462 ms SINUS TACHYCARDIA RIGHT BUNDLE BRANCH BLOCK LEFT ANTERIOR FASCICULAR BLOCK BIFASCICULAR BLOCK ABNORMAL ECG Confirmed by DRE LYNCH MD ([id number]) on 02/22/2017 10:15:25 AM Referred By: Confirmed By:DRE LYNCH MD
== END 2017-02-22 02:52 | disposition short-term general hospital (02) | DRG 871 ==
LOC: JER 12:49 → JERBED 15:40 → JICU 16:47
PROVIDERS: ADMIT Internal Medicine; ATTEND Internal Medicine
PROC: 05HM33Z Insertion of Infusion Device into Right Internal Jugular Vein, Percutaneous Approach (ICD-10-PCS; principal; 2017-02-17)
DX: A41.9 Sepsis, unspecified organism (principal); R65.21 Severe sepsis with septic shock; N17.9 Acute kidney failure, unspecified; E87.2 Acidosis; C25.9 Malignant neoplasm of pancreas, unspecified; K81.0 Acute cholecystitis; R74.0 Nonspecific elevation of levels of transaminase and lactic acid dehydrogenase [LDH]; I10 Essential (primary) hypertension; E11.9 Type 2 diabetes mellitus without complications; Z92.21 Personal history of antineoplastic chemotherapy; E78.5 Hyperlipidemia, unspecified; E03.9 Hypothyroidism, unspecified; E87.6 Hypokalemia; E83.42 Hypomagnesemia; E83.39 Other disorders of phosphorus metabolism; Z86.718 Personal history of other venous thrombosis and embolism; R19.7 Diarrhea, unspecified
CPT/HCPCS: 36415; 36600; 71010-TC; 74176-TC; 76705-TC; 80053; 81003; 81015; 82009; 82150; 82550; 82803; 83605; 83690; 83735; 83880; 84100; 84484; 85025; 85027; 85610; 85730; 86140; 87040; 87045; 87046; 87076; 87086; 87177; 87186; 87209; 87254; 87324; 87328; 87329; 87449; 87804; 93005; 93010; 94010; 97116-GP; 97161-GP; 99283-25; G0480